=== PATIENT | male | born 1975 | race Caucasian/White ===

== ENCOUNTER 2023-06-20 10:17 | Outpatient (CLI) | payer BC, SELFPAY ==
[2023-06-20 14:36] LABS: Basophils Percent Auto 0.2 % (0.2-1.2); Eosinophils Absolute Auto 0.1 K/mm3 (0-0.3); Eosinophils Percent Auto 0.9 % (0-4.4); Hematocrit 46.9 % (42.0-52.0); Hemoglobin 14.7 g/dL (14.0-18.0); Immature Granulocyte Absolute 0.02 K/mm3 (0.00-0.031); Immature Granulocyte Percent A 0.3 % (0-0.5); Lymphocytes Absolute Auto 1.69 K/mm3 (0.9-3.2); Lymphocytes Percent Auto 29.4 % (18.3-44.2); Mean Corpuscular HGB Conc 31.3 g/dl (32-36); Mean Corpuscular Hemoglobin 27.8 pg (26-34); Mean Corpuscular Volume 88.7 fl (80-100); Mean Platelet Volume 10.3 fl (7.4-10.4); Monocytes Absolute Auto 0.4 K/mm3 (0.1-0.6); Monocytes Percent Auto 6.3 % (2.6-8.5); Neutrophils Absolute Auto 3.6 K/mm3 (1.3-6.7); Neutrophils Percent Auto 62.9 % (45.5-73.1); Platelet Count Result 196 k/mm3 (150-375); Red Blood Count 5.29 M/mm3 (4.6-6.20); Red Cell Distribution Width 12.6 % (11.5-14.5); White Blood Count 5.8 K/mm3 (4.5-10.0)
[2023-06-20 14:57] LABS: Alanine Aminotransferase 58 U/L (6-50); Albumin Level 4.4 g/dL (3.5-5.1); Alkaline Phosphatase 66 U/L (38-126); Aspartate Amino Transferase 69 U/L (17-59); Bilirubin,Total 0.8 mg/dL (0.2-1.3); Cholesterol 150 mg/dL (0-200); Triglycerides 60 mg/dL (<150)
[2023-06-20 15:11] LABS: Hemoglobin A1C 5.7 % (<5.7); Iron 74 ug/dL (49-181)
[2023-06-20 15:14] LABS: LDL Cholesterol Direct 86 mg/dL
[2023-06-20 15:22] LABS: Percent Iron Saturation 22 % (20-50)
[2023-06-20 15:31] LABS: Prostate Specific Antigen 0.5 ng/mL (< OR = 4.0)
[2023-06-20 15:38] LABS: HDL Direct 52 mg/dL
[2023-06-23 06:20] LABS: LH 2.5 mIU/mL (1.5-9.3); Prolactin 3.7 ng/mL (***)
[2023-06-23 13:20] LABS: Testosterone Total 386 ng/dL (250-1100)
== END 2023-06-20 10:18 | disposition home or self-care (01) ==
LOC: ANHGOSHLAB 10:19
PROVIDERS: PCP Internal Medicine; Visit Provider Internal Medicine
DX: E29.1 Testicular hypofunction (principal); I10 Essential (primary) hypertension; R73.9 Hyperglycemia, unspecified; Z12.5 Encounter for screening for malignant neoplasm of prostate; Z13.220 Encounter for screening for lipoid disorders
CPT/HCPCS: 36415; 80061; 80076; 83002; 83036; 83540; 83550; 84146; 84153; 84402; 84403; 84443; 85025; G0103

== ENCOUNTER 2023-09-15 08:13 | Outpatient (CLI) | payer BC, SELFPAY ==
[2023-09-15 13:54] LABS: Basophils Absolute Auto 0.1 K/mm3 (0.0-0.1); Basophils Percent Auto 0.6 % (0.2-1.2); Eosinophils Absolute Auto 0.1 K/mm3 (0-0.3); Eosinophils Percent Auto 1.1 % (0-4.4); Hematocrit 50.1 % (42.0-52.0); Hemoglobin 15.9 g/dL (14.0-18.0); Immature Granulocyte Absolute 0.04 K/mm3 (0.00-0.031); Immature Granulocyte Percent A 0.5 % (0-0.5); Lymphocytes Absolute Auto 2.11 K/mm3 (0.9-3.2); Lymphocytes Percent Auto 26.4 % (18.3-44.2); Mean Corpuscular HGB Conc 31.7 g/dl (32-36); Mean Corpuscular Hemoglobin 28.2 pg (26-34); Mean Platelet Volume 10.6 fl (7.4-10.4); Monocytes Absolute Auto 0.6 K/mm3 (0.1-0.6); Monocytes Percent Auto 7.1 % (2.6-8.5); Neutrophils Absolute Auto 5.1 K/mm3 (1.3-6.7); Neutrophils Percent Auto 64.3 % (45.5-73.1); Platelet Count Result 200 k/mm3 (150-375); Red Blood Count 5.63 M/mm3 (4.6-6.20); Red Cell Distribution Width 13.8 % (11.5-14.5)
[2023-09-15 14:34] LABS: Prostate Specific Antigen 0.9 ng/mL (< OR = 4.0)
[2023-09-19 16:27] LABS: Testosterone Free 322.8 pg/mL (35.0-155.0); Testosterone Total 1307 ng/dL (250-1100)
== END 2023-09-15 08:14 | disposition home or self-care (01) ==
LOC: ANHGOSHLAB 08:15
PROVIDERS: PCP Internal Medicine; Visit Provider Nurse Practitioner
DX: E29.1 Testicular hypofunction (principal); Z12.5 Encounter for screening for malignant neoplasm of prostate
CPT/HCPCS: 36415; 84153; 84402; 84403; 85025; G0103

== ENCOUNTER 2023-12-01 07:55 | Outpatient (CLI) | payer BC, SELFPAY ==
[2023-12-01 14:49] LABS: Alanine Aminotransferase 83 U/L (6-50); Albumin Level 4.4 g/dL (3.5-5.1); Alkaline Phosphatase 65 U/L (38-126); Anion Gap 10 mmol/L (4-12); Aspartate Amino Transferase 70 U/L (17-59); Bilirubin,Total 1.3 mg/dL (0.2-1.3); Blood Urea Nitrogen 21 mg/dL (9-20); Calcium 8.8 mg/dL (8.4-10.2); Carbon Dioxide 29 mmol/L (22-30); Chloride 101 mmol/L (98-107); Estimated Glomerular Filt Rate > 60; Glucose 90 mg/dL (65-110); Potassium 4.5 mmol/L (3.4-5.0); Sodium 140 mmol/L (137-145)
[2023-12-06 15:08] LABS: Testosterone Free 220.4 pg/mL (35.0-155.0); Testosterone Total 774 ng/dL (250-1100)
== END 2023-12-01 07:56 | disposition home or self-care (01) ==
LOC: ANHGOSHLAB 07:57
PROVIDERS: PCP Internal Medicine; Visit Provider Internal Medicine
DX: E29.1 Testicular hypofunction (principal); Z79.890 Hormone replacement therapy; R73.9 Hyperglycemia, unspecified
CPT/HCPCS: 36415; 80053; 83036; 84402; 84403

== ENCOUNTER 2023-12-28 07:09 | Outpatient (CLI) | payer BC, SELFPAY ==
--- NOTE | ~2023-12-28 | US_ITS ---
Limited Abdominal Sonogram: Real-time sonographic imaging of the right upper quadrant was performed. Clinical History: Abnormal serum enzyme levels Findings: The liver appears normal with no evidence of mass lesion or bile duct dilatation. Main por val vein demonstrates normal direction of flow. The gallbladder is well distended, and appears normal with no evidence of gallstone or wall thickening. The common bile duct measures 3 mm. The visualize d pancreas, aorta, and IVC are unremarkable. Impression: No significant abnormality seen. Reviewed, dictated and finalized at location M. Impression: No significant abnormality seen.
== END 2023-12-28 07:10 | disposition home or self-care (01) ==
PROVIDERS: PCP Internal Medicine; Visit Provider Internal Medicine
DX: R74.8 Abnormal levels of other serum enzymes (principal)
CPT/HCPCS: 76705

== ENCOUNTER 2024-02-15 07:25 | Outpatient (CLI) | payer BC, SELFPAY ==
[2024-02-15 08:11] LABS: Alanine Aminotransferase 45 U/L (6-50); Albumin Level 4.6 g/dL (3.5-5.1); Alkaline Phosphatase 52 U/L (38-126); Aspartate Amino Transferase 40 U/L (17-59); Bilirubin,Total 1.9 mg/dL (0.2-1.3)
== END 2024-02-15 07:26 | disposition home or self-care (01) ==
PROVIDERS: PCP Internal Medicine; Visit Provider Internal Medicine
DX: R74.8 Abnormal levels of other serum enzymes (principal)
CPT/HCPCS: 36415; 80076

== ENCOUNTER 2024-05-09 07:58 | Outpatient (CLI) | payer BC, SELFPAY ==
[2024-05-09 12:33] LABS: Basophils Absolute Auto 0.1 K/mm3 (0.0-0.1); Basophils Percent Auto 0.7 % (0.2-1.2); Eosinophils Absolute Auto 0.1 K/mm3 (0-0.3); Eosinophils Percent Auto 1.1 % (0-4.4); Hemoglobin 16.8 g/dL (14.0-18.0); Immature Granulocyte Absolute 0.03 K/mm3 (0.00-0.031); Immature Granulocyte Percent A 0.4 % (0-0.5); Lymphocytes Absolute Auto 1.78 K/mm3 (0.9-3.2); Lymphocytes Percent Auto 25.3 % (18.3-44.2); Mean Corpuscular HGB Conc 32.9 g/dl (32-36); Mean Corpuscular Hemoglobin 29.1 pg (26-34); Mean Corpuscular Volume 88.4 fl (80-100); Mean Platelet Volume 10.3 fl (7.4-10.4); Monocytes Absolute Auto 0.5 K/mm3 (0.1-0.6); Monocytes Percent Auto 6.8 % (2.6-8.5); Neutrophils Absolute Auto 4.6 K/mm3 (1.3-6.7); Neutrophils Percent Auto 65.7 % (45.5-73.1); Platelet Count Result 202 k/mm3 (150-375); Red Blood Count 5.77 M/mm3 (4.6-6.20); Red Cell Distribution Width 14.2 % (11.5-14.5)
[2024-05-09 13:18] LABS: Alanine Aminotransferase 39 U/L (6-50); Albumin Level 4.6 g/dL (3.5-5.1); Alkaline Phosphatase 64 U/L (38-126); Anion Gap 4 mmol/L (4-12); Aspartate Amino Transferase 86 U/L (17-59); Bilirubin,Total 2.2 mg/dL (0.2-1.3); Blood Urea Nitrogen 18 mg/dL (9-20); Calcium 8.7 mg/dL (8.4-10.2); Carbon Dioxide 31 mmol/L (22-30); Chloride 102 mmol/L (98-107); Cholesterol 210 mg/dL (0-200); Estimated Glomerular Filt Rate > 60; Glucose 87 mg/dL (65-110); HDL Direct 44 mg/dL; Potassium 4.5 mmol/L (3.4-5.0); Sodium 137 mmol/L (137-145); Triglycerides 85 mg/dL (<150)
[2024-05-09 13:29] LABS: LDL Cholesterol Direct 128 mg/dL
[2024-05-09 16:03] LABS: Hemoglobin A1C 5.7 % (<5.7)
[2024-05-15 19:42] LABS: Testosterone Free 409.6 pg/mL (35.0-155.0); Testosterone Total 1397 ng/dL (250-1100)
== END 2024-05-09 07:59 | disposition home or self-care (01) ==
LOC: ANHGOSHLAB 07:59
PROVIDERS: PCP Internal Medicine; Visit Provider Internal Medicine
DX: E29.1 Testicular hypofunction (principal); I10 Essential (primary) hypertension; R74.8 Abnormal levels of other serum enzymes; R73.9 Hyperglycemia, unspecified
CPT/HCPCS: 36415; 80053; 80061; 83036; 84402; 84403; 85025

== ENCOUNTER 2024-05-13 08:07 | Outpatient (CLI) | payer BC, SELFPAY ==
[2024-05-13 12:29] LABS: INR 0.9; Prothrombin Time 12.8 Seconds (11.1-14.7)
[2024-05-13 12:56] LABS: Bilirubin Indirect 1.7 mg/dL (0-1.1)
[2024-05-13 13:24] LABS: Hepatitis B Surface Antigen Negative (Negative)
[2024-05-13 13:41] LABS: Hepatitis C Virus Antibody Negative (Negative)
[2024-05-14 18:24] LABS: GGT 22 U/L (3-95)
--- OUTSIDE RECORDS SUMMARY | 2024-05-20 12:10 | XMS_ITS | Encounter Summary ---
Author Organization [facility] Address [facility]. [place], [place] [address] [place] [address] Care Team Providers Care Development Spec Name Role Phone Joel Tanner MD Primary Care Provider + Senthil Fisher MD Unavailable Encounter Details Date Type Department Care Team (Late st Contact Info) Description 08/04/2022 Adar IT Message [address] [address] [facility] Provider Overdue for High Blood Pressure follow up Social History Tobacco Use Types Packs/Day Years Used Date Smoking Tobacco: Former Cigarettes Q uit: 1998 Smokeless Tobacco: Never Alcohol Use Standard Drinks/Week Comments Yes 0 (1 standard drink = 0.6 oz pur e alcohol) seldom AUDIT-C Answer Date Recorded Frequency of Alcohol Consumption 2-4 times a mon06/11/2019 Average Number of Drinks Not on file 020 Frequency of Binge Drinking Not on file 05/23 PHQ-2 Answer Date Recorded Patient Health Questionnaire-2 Score 0 08/05/2022 Sex and Gender Information Value Date Recorded Sex Assigned at Not on file Legal Sex Male 8:30 PM CDT Gender Identity Not on file Sexual Orientation Not on file Occupation Industry Job Start Date Job End Date Not on file Not on file Not on file Not on file COVID-19 Exposure Response Date Recorded In the last 10 days, have yo u been in contact with someone who was confirmed or suspected to have Coronavirus/COVID-19? No / Unsure 08/05/2022 9:30 AM CDT documented as of this encounter Plan of Treatment Not on file documented as of this encounter Visit Diagnoses Not on filedocumented in this encounter Additional Health Concerns Assessment Noted Time PHQ-9 Depression Total Score: 0 06/28/19 22 3:59 PM DIE TRIPPER documented as of this encounter Care Teams Development Spec Relationship Specialty Start Date End Date Joel Tanner MD [address] [facility] [address] [place] [address] PCP - General FAMILY PRACTICE 05/24/19 02/27/24 Senthil Fisher MD Three [facility]. [address] [place] [address] Deanne Information Technology Consultant CARDIOVASCULAR DISEASE 05/29/19 documented as of this encounter
--- OUTSIDE RECORDS SUMMARY | 2024-05-20 12:10 | XMS_ITS | Encounter Summary ---
Author Organization [facility] Address [facility]6 [facility]. [place], [place] [address] [place] [address] Care Team Providers Care Gradall Operator Name Role Phone Joel Tanner MD Primary Care Provider + Senthil Fisher MD Unavailable [phone] Encounter Details Date Type Department Care Team (Latest Contact Info) Description 05/17/2023 7:25 AM DETAIL MANAGER - 05/17/2023 11:59 PM [facility] Hospital Encounter [facility] [address] [place] [address] Joel Tanner MD [address] [facility] [address] [place] [address] Discharge Disposition: Home or Self Care (Routine Discharge) Social History Tobacco Use Types Packs/Day Years Used Date Smoking Tobacco: Former Cigarettes Q uit: 05/22/1998 Smokeless Tobacco: Never Alcohol Use Standard Drinks/Week Comments Yes 0 (1 standard drink = 0.6 oz pur e alcohol) seldom AUDIT-C Answer Date Recorded Frequency of Alcohol Consumption 2-4 times a mon 06/11/2019 Average Number of Drinks Not on file [...] file Not on file Not on file documented as of this encounter Medications at Time of Discharge alfuzosin ER (UROXATRAL) 10 MG 24 hr tabletIndications: Benign prostatic hyperplasia with urinary obstruction Take 1 tablet (10 mg total) by mouth daily. 90 tablet 3 12/29/2021 lisinopril (PRINIVIL) 20 MG tabletIndications: Hypertension, unspecified type TAKE 1 TABLET(20 MG) BY MOUTH DAILY 90 tablet 03/27/2023 06/26/2023 documented as of this encounter Plan of Treatment Not on file documented as of this encounter Procedures Procedure Name Priority Date/Time Associated Diagnosis Comments COMPREHENSIVE METABOLIC PANEL Routine 05/17/2023 7:31 AM DETAIL MANAGER Mixed hyperlipidemia LIPID PANEL Routine 05/17/2023 7:31 AM DETAIL MANAGER Mixed hyperlipidemia TESTOSTERONE, TOTAL Routine 05/17/2023 7 :31 AM DETAIL MANAGER Low testosterone documented in this encounter Results * TESTOSTERONE, TOTAL (05/17/2023 7:31 AM DETAIL MANAGER) TESTOSTERONE TOTAL 255 250 - 1,100 ng/dL 05/20/2023 11:34 AM DETAIL MANAGER [facility] Comment: For additional information, please refer to http://education.[employer].[email or web address]/faq/ [email or web address] (This link is being provided for informational/ educational purposes only.) This test was developed and its analytical performance characteristics have been determined by [employer] [place], [place]. It has not been cleared or approved by the U.S. Food and Drug Administration. This assay has been validated pursuant to the CLIA regulations and is used for clinical purposes. Test Performed by [facility], [facility], [address] [place] [address] Darnell Bello M.D., Ph.D., Director of Laboratories , [facility] [id number] 05/17/2023 7:31 AM DETAIL MANAGER Joel Tanner MD LABORATORY Final Re sult [facility] [address] [place] [address], [place] [phone] * (ABNORMAL) LIPID PANEL (05/17/2023 7:31 AM DETAIL MANAGER) CHOLESTEROL 251(H) <200 MG/DL 05/17/2023 9:28 [facility] TRIGLYCERIDES 135 <150 MG/DL 05/17/2023 9:28 [facility] HDL 49 >40.0 MG/DL 05/17/2023 9:28 [facility] LDL (CALCULATED) 175(H) <100 MG/DL 05/17/2023 9:28 [facility] NON HDL CHOLESTEROL 202(H) <130 MG/DL 05/17/2023 9:28 [facility] Comment: NOTE: WHEN THE TRIGLYCERIDES ARE >200 mg/dL, NON HDL C IS A SECONDARY TARGET OF THERAPY, WITH A GOAL 30 mg/dL HIGHER THAN THE IDENTIFIED LDL C GOAL. CHOL/HDL RATIO 5.1(H) 0.0 - 4.5 05/17/2023 9:28 [facility] VLDL CALCULATION 27 5 - 55 MG/DL 05/17/2023 9:28 [facility] LIPID INTERPRETATION 05/17/2023 9:28 [facility] Comment: NIH CONCENSUS REPORT RECOMMENDATIONS: ?ADULT ?CHILD ??LOW RISK: ?CHOLESTEROL ? <200 ? <170 ?TRIGLYCERIDE ?<150 ?--- ?HDL ? >=60 ?--- ?LDL ? <100 ? <110 ??BORDERLINE: ?CHOLESTEROL ? 200-239 ?? 170-199 ?TRIGLYCERIDE ?150-199 ? --- ?HDL ?40-59 ?--- ?LDL ? 100-159 ?? 110-129 ??HIGH RISK: ?CHOLESTEROL ? >=240 ?>=200 ?TRIGLYCERIDE ?>=200 ? --- ?HDL ?<40 ?--- ?LDL ? >=160 ?>=130 05/17/2023 7:31 AM DETAIL MANAGER us Joel Tanner MD LABORATORY Final Re sult [facility] () [facility] [address] [place] [address], * (ABNORMAL) COMPREHENSIVE METABOLIC PANEL (05/17/2023 7:31 AM DETAIL MANAGER) GLUCOSE 115(H) 70 - 99 MG/DL 05/17/2023 9:28 [facility] BUN 19(H) 7 - 18 MG/DL 05/17/2023 9:28 [facility] CREATININE S/P/B 0.95 0.7 - 1.3 MG/DL 05/17/2023 9:28 [facility] SODIUM S/P/B 137 136 - 145 MMOL/L 05/17/2023 9:28 [facility] POTASSIUM S/P/B 4.0 3.5 - 5.1 MMOL/L 05/17/2023 9:28 [facility] CHLORIDE S/P/B 102 100 - 108 MMOL/L 05/17/2023 9:28 [facility] CO2 26.2 21 - 32 MMOL/L 05/17/2023 9:28 [facility] CALCIUM S/P/B 8.1(L) 8.5 - 10.1 MG/DL 05/17/2023 9:28 [facility] BILIRUBIN TOTAL S/P/B 1.0 0.2 - 1.2 MG/DL 05/17/2023 9:28 [facility] Comment: THIS ASSAY IS NOT RECOMMENDED FOR PATIENTS UNDERGOING TREATMENT WITH ELTROMBOPAG DUE TO THE POTENTIAL FOR FALSELY ELEVATED RESULTS. TOTAL PROTEIN S/P/B 7.1 6.4 - 8.2 G/DL 05/17/2023 9:28 [facility] ALBUMIN S/P/B 3.8 3.4 - 5.0 G/DL 05/17/2023 9:28 [facility] AST 26 15 - 37 U/L 05/17/2023 9:28 [facility] ALT 47 16 - 60 U/L 05/17/2023 9:28 AM DETAIL MANAGER [facility] ALKALINE PHOSPHATASE S/P/B 64 50 - 136 U/L 05/17/2023 9:28 AM DETAIL MANAGER [facility] ANION GAP 8.8 5 - 15 MMOL/L 05/17/2023 9:28 [facility] BUN CREATININE RATIO 20.0 6 - 26 05/17/2023 9:28 [facility] A/G RATIO 1.2 1.0 - 2.0 RATIO 05/17/2023 9:28 [facility] GFR ESTIMATE >90 >90 ML/MIN/1.7 3 M2 05/17/2023 9:28 AM [facility] Comment: NOTE: eGFR is not calculated for patients <18 years of age. This is an estimated GFR calculation using the new CKD EPI creatinine equation without race and so does not require a correction factor for race. This estimated GFR should not be used for calculating drug doses. 05/17/2023 7:31 AM DETAIL MANAGER Joel Tanner MD LABORATORY Final Re sult [facility] [address] [place] [address], documented in this encounter Visit Diagnoses Diagnosis Mixed hyperlipidemia Low testosterone Other testicular hypofunction documented in this encounter Additional Health Concerns Assessment Noted Time PHQ-9 Depression Total Score: 0 06/28/19 22 3:59 PM DETAIL MANAGER documented as of this encounter Care Teams Gradall Operator Relationship Specialty Start Date End Date Joel Tanner MD [address] [facility] [address] [place] [address] PCP - General FAMILY PRACTICE 05/24/19 02/27/24 Senthil Fisher MD Three [facility]. [address] [place] [address] Deanne Roundhouse Worker CARDIOVASCULAR DISEASE 05/29/19 documented as of this encounter
--- OUTSIDE RECORDS SUMMARY | 2024-05-20 12:10 | XMS_ITS | Encounter Summary ---
Author Organization [facility] Address [facility]6 [facility]. [place], [place] [address] [place] [address] Care Team Providers Care Stack Yield Engineer Name Role Phone Joel Tanner MD Primary Care Provider + Senthil Fisher MD Unavailable [phone] Encounter Details Date Type Department Care Team (Latest Contact Info) Description 02/14/2022 Travel Social History Tobacco Use Types Packs/Day Years [...] on file 05/23 PHQ-2 Answer Date Recorded PHQ-2 Score - If the patient scores above 3, please move on to questions 3-9 0 02/04/2022 Sex and Gender Information Value Date Recorded [...] suspected to have Coronavirus/COVID-19? No / Unsure 02/14/2022 11:13 AM CDT documented as of this encounter Plan of Treatment Not on file documented as of this encounter Visit Diagnoses Not on filedocumented in this encounter Additional Health Concerns Assessment Noted Time PHQ-9 Depression Total Score: 0 06/28/19 22 3:59 PM SCOUT SNIPER documented as of this encounter Care Teams Stack Yield Engineer Relationship Specialty Start Date End Date Joel Tnaner MD [address] [facility] [address] [place] [address] PCP - General FAMILY PRACTICE 05/24/19 02/27/24 Senthil Fisher MD Three [facility]. [facility] [address] [place] [address] Deanne Mailing Specialist CARDIOVASCULAR DISEASE 05/29/19 documented as of this encounter
--- OUTSIDE RECORDS SUMMARY | 2024-05-20 12:10 | XMS_ITS | Encounter Summary ---
Author Organization [facility] Address [facility]6 [facility]. [place], [place] [address] [place] [address] Care Team Providers Care Director Retail Brand Development Name Role Phone Joel Tanner MD Primary Care Provider + Senthil Fisher MD Unavailable [phone] Encounter Details Date Type Department Care Team (Latest Contact Info) Description 12/02/2022 Travel Social History Tobacco Use Types Packs/Day [...] on file documented as of this encounter Plan of Treatment Not on file documented as of this encounter Visit Diagnoses Not on filedocumented in this encounter Additional Health Concerns Assessment Noted Time PHQ-9 Depression Total Score: 0 06/28/19 22 3:59 PM SUPERINTENDENT SERVICE documented as of this encounter Care Teams Director Retail Brand Development Relationship Specialty Start Date End Date Joel Tanner MD [address] [facility] [address] [place] [address] PCP - General FAMILY PRACTICE 05/24/19 02/27/24 Senthil Fisher MD Three [facility]. [facility] [address] [place] [address] Deanne Oil Sprayer CARDIOVASCULAR DISEASE 05/29/19 documented as of this encounter
--- OUTSIDE RECORDS SUMMARY | 2024-05-20 12:10 | XMS_ITS | Encounter Summary ---
Author Organization [facility] Address [facility]6 [facility]. [place], [place] [address] [place] [address] Care Team Providers Care Safe And Vault Installer Name Role Phone Joel Tanner MD Primary Care Provider + Senthil Fisher MD Unavailable [phone] Encounter Details Date Type Department Care Team (Latest Contact Info) Description 02/16/2022 Getting-in Message [facility] [address] [place] [address] Joel Tanner MD [address] [place] [address] Question regarding COMPREHENSIVE METABOLIC PANEL Social History Tobacco Use Types Packs/Day Years [...] Recorded In the last 10 days, have janes u been in contact with someone who was confirmed or suspected to have Coronavirus/COVID-19? No / Unsure 02/14/2022 11:13 AM CDT documented as of this encounter Plan of Treatment Not on file documented as of this encounter Visit Diagnoses Not on filedocumented in this encounter Additional Health Concerns Assessment Noted Time PHQ-9 Depression Total Score: 0 06/28/19 22 3:59 PM CAFETERIA MANAGER documented as of this encounter Care Teams Safe And Vault Installer Relationship Specialty Start Date End Date Joel Tanner MD [address] [facility] [address] [place] [address] PCP - General FAMILY PRACTICE 05/24/19 02/27/24 Senthil Fisher MD [facility]. [facility] [address] [place] [address] Deanne Rug Layer CARDIOVASCULAR DISEASE 05/29/19 documented as of this encounter
--- OUTSIDE RECORDS SUMMARY | 2024-05-20 12:10 | XMS_ITS | Encounter Summary ---
Author Organization [facility] Address [facility]. [place], [place] [address] [place] [address] Care Team Providers Care Senior Quality Control Inspector Name Role Phone Joel Stinson MD Primary Care Provider + Senthil Fisher MD Unavailable [phone] Encounter Details Date Type Department Care Team (Late st Contact Info) Description 12/16/2022 4:10 PM CDT Teleconsult [facility] General Surgery [address], [address] [place] [address] Kyra Velasco MD [address] [address] Social History Tobacco Use Types Packs/Day Years Used Date Smoking Tobacco: Former Cigarettes Q uit: 05/22/1998 Smokeless Tobacco: Never Alcohol Use Standard Drinks/Week Comments Yes 0 (1 standard drink = 0.6 oz pur e alcohol) seldom AUDIT-C Answer Date Recorded Frequency of Alcohol Consumption 2-4 times a mon th 06/11/2019 Average Number of Drinks Not on [...] on file documented as of this encounter Progress Notes * Kyra Velasco MD - 12/16/2022 4:10 PM CDT Reason for Visit: No chief complaint on file. History of Present Illness: Guzman Villagran is a 47-year-old male status post colonoscopy on December 02, 2022 for initial coloncancer screening. Colonoscopy revealed small hyperplastic appearing polyps. Pathology of all polypswere hyperplastic polyps. There were about 6 polyps removed. He is doing well and denies any pertinent issues or concerns. I had a brief patient communication by Telephone for follow-up after colonoscopy. I responded to the patient by Telephone with the following recommendations: As discussed below. Prior to communication, I educated patient on insurance cost-sharing and obtained verbal consent. Total Time Spent in Kamini tereza: 11 minutes and all those minutes was spent on coordination of care, reviewing pathology and colonoscopy findings, answering questions. ROS: Review of Systems Gastrointestinal: Negative. Medications: Current Outpatient Medications: alfuzosin ER (UROXATRAL) 10 MG 24 hr tablet, Take 1 tablet (10 mg total) by mouth daily., Disp: 90 tablet, Rfl: 3 lisinopril (PRINIVIL) 20 MG tablet, TAKE 1 TABLET(20 MG) BY MOUTH DAILY, Disp: 90 tablet, Rfl: 1 Allergies No Known Allergies Past Medical History: Diagnosis Date Asthma Chest pain Hypertension, essential, benign Kidney stones x 2 Sleep apnea Past Surgical History: Procedure Laterality Date COLONOSCOPY N/A 12/02/2022 COLONOSCOPY with polypectomies performed by Kyra Velasco MD at [facility] OR EYE SURGERY 2021 Lasic LASIK Left SHOULDER SURGERY Bilateral torn labrum SINUS SURGERY Social History Tobacco Use Smoking status: Former Types: Cigarettes Quit date: 05/22/1998 Years since quittin.5 Smokeless tobacco: Never Vaping Use Vaping Use: Never used Substance Use Topics Alcohol use: Yes Comment: seldom Drug use: Not Currently Types: Marijuana Family History Problem Relation Name Age of Onset Lung Cancer Mother Joy Cancer Mother Joy Heart Attack Father Arthritis Maternal Grandmother Llna Physical Exam Constitutional: Comments: This was a telephone telehealth encounter therefore physical examination was not performed There were no vitals filed for this visit. There is no height or weight on file to calculate BMI. Diagnoses/Impression: 1. Postoperative examination Recommendations and Plan: Guzman Villagran is a 47-year-old male status post colonoscopy with removal of multiple hyperplastic appearing polyps. Prep was good. I have recommended repeat colonoscopy in 7 years. He verbalizedunderstanding. I spent 11 minutes today reviewing the patient's medical record, obtaining history, documenting in the medical record, counseling and educating the patient, reviewing and communicating test results, and coordinating care. Note: This note was created with the aid of dictation software, thus there may be some word substitutions or errors. Again, thank you for allowing me to provide consultative services and to participate in the care ofGuzman Villagran. Kyra Velasco MD Referring Provider: No ref. provider found PCP: JOEL STINSON MD documented in this encounter Plan of Treatment Not on file documented as of this encounter Visit Diagnoses Diagnosis Postoperative examination- Primary Follow-up examination, following unspecified surgery documented in this encounter Additional Health Concerns Assessment Noted Time PHQ-9 Depression Total Score: 0 06/28/19 22 3:59 PM DIESEL MECHANIC CONSTRUCTION documented as of this encounter Care Teams Senior Quality Control Inspector Relationship Specialty Start Date End Date Joel Stinson MD [address] [facility] 112 [place] [address] PCP - General FAMILY PRACTICE 05/24/19 02/27/24 Senthil Fisher MD [facility] [address] [place] [address] Deanne Off Track Betting Manager CARDIOVASCULAR DISEASE 05/29/19 documented as of this encounter
--- OUTSIDE RECORDS SUMMARY | 2024-05-20 12:10 | XMS_ITS | Encounter Summary ---
Author Organization [facility] Address [facility]. [place], [place] [address] [place] [address] Care Team Providers Care Gum Rolling Machine Operator Name Role Phone Joel Stinson MD Primary Care Provider + Senthil Fisher MD Unavailable [phone] Reason for Visit * Reason Comments Consult New patient colon co nsult * Consultation (Routine) - Closed Specialty Diagnoses / Procedures Referred By Contac t Referred To Contact SURGERY Diagnoses colon consult Procedures NEW PATIENT Kyra Velasco MD [address] [place] [address] Phone: tel: fax: Kyra Velasco MD [address] [place] [address] Phone: tel: fax: Referral ID Status Reason Start Date Expiration Date Visits Re quested Visits Authorized [id number] Closed 09/14/2022 1 1 Encounter Details Date Type Department Care Team (Late st Contact Info) Description 09/14/2022 3:40 PM CDT Office Visit [facility] General Surgery [address], [address] [place] [address] Kyra Velasco MD [address] [place] [address] Consult (New patient colon consult) Social History Tobacco Use Types Packs/Day Years Used Date Smoking Tobacco: Former Cigarettes Q uit: 05/22/1998 Smokeless Tobacco: Never Tobacco Cessation:Counseling Given: Not Answered Alcohol Use Standard Drinks/Week Comments Yes 0 [...] suspected to have Coronavirus/COVID-19? No / Unsure 09/14/2022 3:34 PM CDT documented as of this encounter Last Filed Vital Signs Vital Sign Reading Time Taken Comments Blood Pressure 134/84 09/14/2022 3:38 PM CDT Pulse 83 09/14/2022 3:38 PM CDT Temperature 36.6 ??C (97.8 ??F) 09/14/2022 3:38 PM CD T Respiratory Rate 16 09/14/2022 3:38 PM CDT Oxygen Saturation 99% 09/14/2022 3:38 PM CDT Inhaled Oxygen Concentration - - Weight 96.2 kg (212 lb) 09/14/2022 3:38 PM CDT Height 180.3 cm (5' 11 ) 09/14/2022 3:38 PM CDT Body Mass Index 29.57 09/14/2022 3:38 PM CDT documented in this encounter Progress Notes * Kyra Velasco MD - 09/14/2022 3:40 PM CDT Reason for Visit: Consult (New patient colon consult) History of Present Illness: Guzman Villagran is a 47-year-old male who was referred for a screening colonoscopy. He has neverhad a colonoscopy before. He denies any family history of colon cancer, inflammatory bowel disease or adenomatous colon polyps; denies any personal history of unintentional weight loss, rectal bleeding, dark stools, hematemesis, narrowed stools or change in stool caliber or character, rectal pain, nausea, vomiting, bloatingor abdominal pain. He denies any abdominal surgeries. He denies any previous issues with anesthesia. I have reviewed the past medical, surgical, social and family histories. ROS: Review of Systems Constitutional: Negative. HENT: Negative. Eyes: Negative. Respiratory: Negative. Cardiovascular: Negative. Gastrointestinal: Negative. Genitourinary: Negative. Musculoskeletal: Negative. Skin: Negative. Neurological: Negative. Endo/Heme/Allergies: Negative. Psychiatric/Behavioral: Negative. Medications: Current Outpatient Medications: alfuzosin ER [...] apnea Past Surgical History: Procedure Laterality Date EYE SURGERY 2021 Lasic LASIK Left SHOULDER SURGERY Bilateral torn labrum SINUS SURGERY Social History Tobacco Use Smoking status: Former Types: Cigarettes Quit date: 05/22/1998 Years since quittin.3 Smokeless tobacco: Never Vaping Use Vaping Use: Never used Substance Use Topics Alcohol use: Yes Comment: seldom Drug use: Not Currently Types: Marijuana Family History Problem Relation Name Age of Onset Lung Cancer Mother Joy Cancer Mother Joy Heart Attack Father Arthritis Maternal Grandmother Llna Physical Exam Vitals and nursing note reviewed. Constitutional: General: He is not in acute distress. Appearance: Normal appearance. He is well-developed. He is not ill-appearing, toxic-appearing or diaphoretic. HENT: Head: Normocephalic and atraumatic. Right Ear: External ear normal. Left Ear: External ear normal. Nose: Nose normal. Eyes: General: No scleral icterus. Right eye: No discharge. Left eye: No discharge. Conjunctiva/sclera: Conjunctivae normal. Cardiovascular: Rate and Rhythm: Normal rate and regular rhythm. Heart sounds: Normal heart sounds. No murmur heard. No friction rub. No gallop. Pulmonary: Effort: Pulmonary effort is normal. No respiratory distress. Breath sounds: Normal breath sounds. No stridor. No wheezing, rhonchi or rales. Chest: Chest wall: No tenderness. Abdominal: General: Bowel sounds are normal. There is no distension. Palpations: Abdomen is soft. There is no mass. Tenderness: There is no abdominal tenderness. There is no guarding or rebound. Musculoskeletal: General: Normal range of motion. Cervical back: Normal range of motion and neck supple. Skin: General: Skin is warm and dry. Neurological: General: No focal deficit present. Mental Status: He is alert and oriented to person, place, and time. Psychiatric: Mood and Affect: Mood normal. Behavior: Behavior normal. Vitals: 09/14/22 1538 Patient Position: Sitting BP Location: Left arm Cuff size: Adult Large BP: 134/84 Pulse: 83 Body mass index is 29.57 kg/m??. Diagnoses/Impression: 1. Encounter for screening for malignant neoplasm of colon Recommendations and Plan: Guzman Villagran 47-year-old male due for a screening colonoscopy. Colonoscopy is indicated. Risks, benefits and alternatives of a colonoscopy have been discussed with patient including but not limited to abdominal discomfort, bleeding, infection, perforation, aspiration, missed lesions, drug reaction, pulmonary or cardiac issues, risk of delayed diagnosis of postprocedural complications, possible need for further procedure or surgery. Ample time was given for questions and all questions havebeen answered. Patient has been scheduled for a colonoscopy. Prep instructions provided. Consent will be signed on the day of procedure. Ample time was given for questions and all questions were addressed. Thank you very much for this referral and for allowing me to participate in the care of your patient. Note: This note was created with the aid of dictation software, thus there may be some word substitutions or errors. Again, thank you for allowing me to provide consultative services and to participate in the care ofGuzman Villagran. 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 [facility] [address] [place] [address] Waldron Blurb Writer CARDIOVASCULAR DISEASE 05/29/19 documented as of this encounter
--- OUTSIDE RECORDS SUMMARY | 2024-05-20 12:10 | XMS_ITS | Encounter Summary ---
Author Organization [facility] Address [facility] [place] [address] [place] [address] Care Team Providers Care Blocking Machine Tender Name Role Phone Joel Tanner MD Primary Care Provider + Senthil Fisher MD Unavailable [phone] Encounter Details Date Type Department Care Team (Latest Contact Info) Description 02/14/2022 11:13 AM CDT - 02/14/2022 11:59 PM T Hospital Encounter [facility] [address] [place], [place] [id number] Joel Tanner MD [address] [place] [address] Discharge Disposition: Home or Self [...] AM CDT documented as of this encounter Medications at Time of Discharge alfuzosin ER (UROXATRAL) 10 MG 24 hr tabletIndications: Benign prostatic hyperplasia with urinary obstruction Take 1 tablet (10 mg total) by mouth daily. 90 tablet 3 12/29/2021 lisinopril (PRINIVIL) 20 MG tabletIndications: Hypertension, unspecified type TAKE 1 TABLET(20 MG) BY MOUTH DAILY 30 tablet 02/01/2022 03/08/2022 documented as of this encounter Plan of Treatment Not on file documented as of this encounter Procedures Procedure Name Priority Date/Time Associated Diagnosis Comments HC TESTOSTERONE TOTAL-90 Routine 02/14/2022 11:19 AM CDT Low testosterone COMPREHENSIVE METABOLIC PANEL Routine 02/14/2022 11:19 AM CDT Hypertension, essential, benign LIPID PANEL Routine 02/14/2022 11:19 AM CDT Hypertension, essential, benign documented in this encounter Results * TESTOSTERONE, FREE & TOTAL (02/14/2022 11:19 AM CDT) TESTOSTERONE TOTAL 321 250 - 1,100 ng/dL 02/19/2022 9:51 PM CDT [facility] [place] Comment: For additional information, please refer to http://education.FlowCo.TaCerto.com/faq/ [email or web address] (This link is being provided for informational/ educational purposes only.) This test was developed and its analytical performance characteristics have been determined by [employer] [place], [place]. It has not been cleared or approved by the U.S. Food and Drug Administration. This assay has been validated pursuant to the CLIA regulations and is used for clinical purposes. TESTOSTERONE FREE 58.4 35.0 - 155.0 pg/mL 02/19/2022 9:51 PM CDT [facility] [place] Comment: This test was developed and its analytical performance characteristics have been determined by [employer] [place], [place]. It has not been cleared or approved by the U.S. Food and Drug Administration. This assay has been validated pursuant to the CLIA regulations and is used for clinical purposes. Test Performed by [employer] [facility], [employer] [facility], [address] [place], [place] Darnell Bello M.D., Ph.D., Director of Laboratories , CLIA [id number] 02/14/2022 11:1 9 AM CDT Joel Tanner MD LABORATORY Final Re sult [facility] [address] [place], [place] , * (ABNORMAL) LIPID PANEL (02/14/2022 11:19 AM CDT) CHOLESTEROL 195 <200 MG/DL 02/14/2022 12:02 PM CDT [facility] TRIGLYCERIDES 115 <150 MG/DL 02/14/2022 12:02 PM CDT [facility] HDL 49 >40.0 MG/DL 02/14/2022 12:02 PM CDT [facility] LDL (CALCULATED) 123(H) <100 MG/DL 02/14/2022 12:02 PM CDT [facility] NON HDL CHOLESTEROL 146(H) <130 MG/DL 02/14/2022 12:02 PM CDT [facility] Comment: NOTE: WHEN THE TRIGLYCERIDES ARE >200 mg/dL, NON HDL C IS A SECONDARY TARGET OF THERAPY, WITH A GOAL 30 mg/dL HIGHER THAN THE IDENTIFIED LDL C GOAL. CHOL/HDL RATIO 4.0 0.0 - 4.5 02/14/2022 12:02 PM CDT [facility] VLDL CALCULATION 23 5 - 55 MG/DL 02/14/2022 12:02 PM CDT [facility] LIPID INTERPRETATION 02/14/2022 12:02 PM CDT [facility] Comment: NIH CONCENSUS REPORT RECOMMENDATIONS: ?ADULT ?CHILD ??LOW RISK: ?CHOLESTEROL ? <200 ? <170 ?TRIGLYCERIDE ?<150 ?--- ?HDL ? >=60 ?--- ?LDL ? <100 ? <110 ??BORDERLINE: ?CHOLESTEROL ? 200-239 ?? 170-199 ?TRIGLYCERIDE ?150-199 ? --- ?HDL ?40-59 ?--- ?LDL ? 100-159 ?? 110-129 ??HIGH RISK: ?CHOLESTEROL ? >=240 ?>=200 ?TRIGLYCERIDE ?>=200 ? --- ?HDL ?<40 ?--- ?LDL ? >=160 ?>=130 02/14/2022 11:1 9 AM CDT Joel Tanner MD LABORATORY Final Re sult [facility] [address] [place] [address], * (ABNORMAL) COMPREHENSIVE METABOLIC PANEL (02/14/2022 11:19 AM CDT) GLUCOSE 111(H) 70 - 99 MG/DL 02/14/2022 12:02 PM CDT [facility] BUN 16 7 - 18 MG/DL 02/14/2022 12:02 PM CDT [facility] CREATININE S/P/B 0.80 0.7 - 1.3 MG/DL 02/14/2022 12:02 PM CDT [facility] SODIUM S/P/B 139 136 - 145 MMOL/L 02/14/2022 12:02 PM T [facility] POTASSIUM S/P/B 4.0 3.5 - 5.1 MMOL/L 02/14/2022 12:02 PM T [facility] CHLORIDE S/P/B 104 100 - 108 MMOL/L 02/14/2022 12:02 PM CDT [facility] CO2 28.6 21 - 32 MMOL/L 02/14/2022 12:02 PM CDT [facility] CALCIUM S/P/B 8.5 8.5 - 10.1 MG/DL 02/14/2022 12:02 PM CDT [facility] BILIRUBIN TOTAL S/P/B 0.9 0.2 - 1.2 MG/DL 02/14/2022 12:02 PM [facility] Comment: THIS ASSAY IS NOT RECOMMENDED FOR PATIENTS UNDERGOING TREATMENT WITH ELTROMBOPAG DUE TO THE POTENTIAL FOR FALSELY ELEVATED RESULTS. TOTAL PROTEIN S/P/B 7.1 6.4 - 8.2 G/DL 02/14/2022 12:02 PM [facility] ALBUMIN S/P/B 3.9 3.4 - 5.0 G/DL 02/14/2022 12:02 PM [facility] AST 25 15 - 37 U/L 02/14/2022 12:02 PM [facility] ALT 42 16 - 60 U/L 02/14/2022 12:02 PM [facility] ALKALINE PHOSPHATASE S/P/B 67 50 - 136 U/L 02/14/2022 12:02 PM [facility] ANION GAP 6.4 5 - 15 MMOL/L 02/14/2022 12:02 PM [facility] BUN CREATININE RATIO 20.0 6 - 26 02/14/2022 12:02 PM [facility] A/G RATIO 1.2 1.0 - 2.0 RATIO 02/14/2022 12:02 PM [facility] GFR ESTIMATE >90 >90 ML/MIN/1.7 3 M2 02/14/2022 12:02 PM [facility] Comment: NOTE: eGFR is not calculated for patients <18 years of age. This is an estimated GFR calculation using the new CKD EPI creatinine equation without race and so does not require a correction factor for race. This estimated GFR should not be used for calculating drug doses. 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 [address] [place] [address] Deanne Pattern Assembler CARDIOVASCULAR DISEASE 05/29/19 documented as of this encounter
--- OUTSIDE RECORDS SUMMARY | 2024-05-20 12:10 | XMS_ITS | Encounter Summary ---
Author Organization [facility] Address Critical access hospital6 [facility]. [place], [place] [address] [place] [address] Care Team Providers Care Radio Time Salesperson Name Role Phone Joel Tanner MD Primary Care Provider + Senthil Fisher MD Unavailable Reason for Visit * Auth/Cert (Routine) Specialty Diagnoses / Procedures Referred By Contac t Referred To Contact Diagnoses Screening for malignant neoplasm of colon Screening colonoscopy Procedures COLONOSCOPY,DIAGNOSTIC COLONOSCOPY Kyra Hernández MD [address] [address] Phone: tel: fax: Referral ID Status Reason Start Date Expiration Date Visits Re quested Visits Authorized [id number] 1 1 Encounter Details Date Type Department Care Team (Late st Contact Info) Description 12/02/2022 9:33 AM CDT Anesthesia Event [facility] [address] [place] [address] Janine Nye CRNA [address] [place] [address], [address] [place] [address] Lizzie Prado CRNA [address] [place], [place] [id number] Anesthesia Record Procedure Summary Procedure Name Responsible Anesthesiologist Anesthesia Start Time Anesthesia Stop Time COLONOSCOPY with polypectomies Janine Swanson Lindajoaquín, JOSE R 12/02/22 0933 12/02/22 1017 Events Date Time Event Comment 12/02/2022 0851 0851 AN ASSOCIATE ARTISTIC DIRECTOR Prepped 0933 An Start Data 0933 An Start Patient ID and consent checked and patient reassessed. 0933 AN Immediate Reassess The pa tient was reevaluated immediately before sedation or regional anesthesia. 0933 Nasal Cannula Applied 0933 Anesthesia Ready 0944 An Induction The patient was reevaluated immediately before moderate or deep sedation use and before anesthesia induction. 1015 Nasal Cannula Removed 1016 an stop data 1017 Post Anesthetic Care Handoff I completed my handoff to the receiving nurse during which we: 1. Identified the patient 2. Identified the responsible provider 3. Reviewed the pertinent medical history 4. Discussed the surgical course 5. Reviewed intra-op anesthesia management and issues during anesthesia 6. Set expectations for post-procedure period 7. Allowed opportunity for questions and acknowledgement of understanding. 1017 An Stop Meds Name Total lidocaine (PF) (XYLOCAINE) 1% injection 50 mg propofol (DIPRIVAN) 200 mg/20 mL injecti on 662.05 mg lactated ringers infusion 800 mL * Agents Name O2 * Blood No blood administrations on file. Lines, Drains, and Airways Type Details Placement Removal Peripheral IV Placement Date: 11/19 09/11; Placement Time: 0843; Placed Outside of This Facility?: No; Size: 20 G; Orientation: Proximal, Right; Location: Forearm, Basilic; Site Prep: Chlorhexidine; Local Anesthetic: None; Insertion attempts: 1; Patient Tolerance: Tolerated well; Removal Date: 12/02/22; Removal Time: 1050; Removal Reason: Therapy Completed 12/02/22 0843 by Gladys Moctezuma RN 12/02/22 1050 by Britt Gonzales RN documented in this encounter Social History Tobacco Use Types Packs/Day Years [...] on file documented as of this encounter OR Notes * Anesthesia Postprocedure Evaluation - Janine Nye CRNA - 12/02/2022 10:18 AM CDT Anesthesia Post-op Note Guzman Villagran Procedure(s): COLONOSCOPY with polypectomies Anesthesia type: MAC Vitals: 12/02/22 08 BP: 133/89 Vitals: 12/02/[address] Pulse: 77 Vitals: 12/02/22830 Resp: 18 Vitals: 12/02/22830 Temp: 37.1 ??C Vitals: 12/02/22830 SpO2: 94% Patient Location: Phase II/Outpatient Level of Consciousness: awake, alert and oriented Pain Management: adequate analgesia Airway Patency: patent Respiratory Status: acceptable Cardiovascular Status: acceptable Post-Op Nausea: none Postoperative Hydration: euvolemic There were no known notable events for this encounter. * Anesthesia Preprocedure Evaluation - Janine Nye CRNA - 11/23/2022 12:27 PM CDT Anesthesia ROS/MED History Reviewed: Patient summary , Nursing notes , Family history anesthesia, Anesthesia history , Medications Pre-Anesthetic State: Pulmonary (+) sleep apnea, asthma Cardiovascular (+) hypertension Neuro/Psych Substance Use (+) smoker (former) GI/Hepatic/Renal Endo/Other NPO Status: Physical Evaluation Airway Mallampati: II TM Distance: >3 FB Neck ROM: normal Dental No notable dental history Pulmonary Pulmonary exam normal Breath sounds clear to auscultation Cardiovascular Rhythm: regular Rate: normal STOP-Bang Assessment: Anesthesia Plan ASA 2 Intravenous Induction Anesthesia type: MAC Plan for Airway: nasal cannula/simple face mask Informed Consent Anesthetic plan and risks discussed with patient of whom consent was obtained. Consent of blood products not discussed. . documented in this encounter Plan of Treatment Not on file documented as of this encounter Visit Diagnoses Not on filedocumented in this encounter Administered Medications Inactive Administered Medications - up to 3 most recent administrations Medication Order MAR Action Action Date Dose Rate Site lactated ringers infusion at 125 mL/hr, Intravenous, Continuous, Starting on Mon12/02/22 at 0845, Until Mon12/02/22 at 1309, Pre-ProcedureIndication s:Screening for malignant neoplasm of colon Continued by Anesthesia 12/02/2022 9:33 AM CDT 125 mL/hr New Bag 12/02/2022 8:43 AM CDT 125 mL/hr lidocaine (PF) (XYLOCAINE) 1 % injection Intravenous, PRN, Starting on Mon12/02/22 at 0935, Until Mon12/02/22 at 1017, Anesthesia Intra-Op Given 12/02/2022 9:35 AM CDT 50 mg propofol (DIPRIVAN) IV bolus Intravenous, PRN, Starting on Mon12/02/22 at 0935, Until Mon12/02/22 at 1017, Anesthesia Intra-Op Given 12/02/2022 9:40 AM CDT 25 mg Given 12/02/2022 9:35 AM CDT 50 mg New Bag 12/02/2022 9:33 AM CDT 140 mcg/kg/min 80.052 mL /hr documented in this encounter Additional Health Concerns Assessment Noted Time PHQ-9 Depression Total Score: 0 06/28/19 22 3:59 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 [facility] [address] [place] [address] Deanne Sales Exhibitor CARDIOVASCULAR DISEASE 05/29/19 documented as of this encounter
--- OUTSIDE RECORDS SUMMARY | 2024-05-20 12:10 | XMS_ITS | Encounter Summary ---
Author Organization [facility] Address Critical access hospital6 [facility]. [place], [place] [address] [place] [address] Care Team Providers Care Peer Counselor Name Role Phone Joel Stinson MD Primary Care Provider + Senthil Fisher MD Unavailable [phone] Reason for Referral * Consultation (Routine) - Closed Specialty Diagnoses / Procedures Referred By Buck camacho Referred To Contact UROLOGY Diagnoses Benign prostatic hyperplasia with urinary obstruction Procedures OFFICE/OUTPT VISIT,NEW,LEVL III OFFICE/OUTPT VISIT,NEW,LEVL IV OFFICE/OUTPT VISIT,NEW,LEVL V OFFICE/OUTPT VISIT,EST,LEVL III OFFICE/OUTPT VISIT,EST,LEVL IV OFFICE/OUTPT VISIT,EST,LEVL V Joel Stinson MD [address] [address] Phone: tel: fax: Ramses Rendon MD [address] [place] [address] Phone: tel: fax: Referral ID Status Reason Start Date Expiration Date V isits Requested Visits Authorized [id number] Closed Specialty Services 08/05/2022 09/05/2023 99 99 * Consultation/Treatment (Routine) - Closed Specialty Diagnoses / Procedures Referred By Buck camacho Referred To Contact GENERAL SURGERY / SURGERY Diagnoses Colon cancer screening Procedures OFFICE/OUTPT VISIT,NEW,LEVL III OFFICE/OUTPT VISIT,NEW,LEVL IV OFFICE/OUTPT VISIT,NEW,LEVL V OFFICE/OUTPT VISIT,EST,LEVL III OFFICE/OUTPT VISIT,EST,LEVL IV OFFICE/OUTPT VISIT,EST,LEVL V Joel Stinson MD [address] [facility] [address] [place] [address] Phone: tel: fax: [facility] General Surgery - [place] [address], [address] [place] [address] Phone: tel: fax: Referral ID Status Reason Start Date Expiration Date Visits Re quested Visits Authorized [id number] Closed 08/05/2022 09/06/2023 1 1 Reason for Visit * Reason Comments Sore Throat On and off x2wk Congestion Cough Referral Urology, was seeing Dr Dillard Encounter Details Date Type Department Care Team (Late st Contact Info) Description 08/05/2022 9:40 AM CDT Office Visit [facility] [address] [place] [address] Joel Stinson MD [address] [facility] [address] [place] [address] Sore Throat (On and off x2wk); Congestion; Cough; Referral (Urology, was seeing Dr Kahn/colonoscopy) Social History Tobacco Use Types Packs/Day Years Used Date Smoking Tobacco: Former Cigarettes Q uit: 05/22/1998 Smokeless Tobacco: Never Tobacco Cessation:Counseling Given: No Alcohol Use Standard Drinks/Week Comments Yes 0 [...] AM CDT documented as of this encounter Last Filed Vital Signs Vital Sign Reading Time Taken Comments Blood Pressure 104/65 08/05/2022 9:39 AM CDT Pulse 66 08/05/2022 9:39 AM CDT Temperature 36.4 ??C (97.5 ??F) 08/05/2022 9:39 AM CD T Respiratory Rate 18 08/05/2022 9:39 AM CDT Oxygen Saturation 99% 08/05/2022 9:39 AM CDT Inhaled Oxygen Concentration - - Weight 100.1 kg (220 lb 9.6 oz) 08/05/2022 9:39 AM CDT Height 180.3 cm (5' 11 ) 08/05/2022 9:39 AM CDT Body Mass Index 30.77 08/05/2022 9:39 AM CDT documented in this encounter Patient Instructions * Patient Instructions* Joel Stinson MD - 08/05/2022 9:40 AM CDT Antibiotic and call back if symptoms do not resolve. Continue current medication for blood pressure. Will refer to urology and for screening colonoscopy. documented in this encounter Progress Notes * Joel Stinson MD - 08/05/2022 9:40 AM CDT Chief Complaint: Sore Throat (On and off x2wk), Congestion, Cough, Referral (Urology, was seeing DrDooley/colonoscopy), and Joint Pain (Bl fingers) HPI: Guzman Villagran is a 46-year-old male here for follow-up on chronic problems of HTN and BPH. He needs referral to new urologist as his left the area. Doing well on current medications without sideeffects. Complains of sinus symptoms with drainage and sore throat the past two weeks. ROS: Review of Systems Constitutional: Negative for fever. HENT: Positive for congestion, sinus pain and sore throat. Respiratory: Positive for cough. Cardiovascular: Negative for chest pain. Gastrointestinal: Negative for abdominal pain. Musculoskeletal: Negative for myalgias. Neurological: Negative for dizziness. Physical Exam Constitutional: General: He is not in acute distress. HENT: Right Ear: Tympanic membrane and ear canal normal. Left Ear: Tympanic membrane and ear canal normal. Nose: Congestion and rhinorrhea present. Mouth/Throat: Pharynx: Posterior oropharyngeal erythema present. No oropharyngeal exudate. Eyes: Conjunctiva/sclera: Conjunctivae normal. Cardiovascular: Rate and Rhythm: Normal rate and regular rhythm. Pulmonary: Breath sounds: Normal breath sounds. Abdominal: Palpations: Abdomen is soft. Tenderness: There is no abdominal tenderness. Musculoskeletal: Cervical back: Neck supple. Right lower leg: No edema. Left lower leg: No edema. Lymphadenopathy: Cervical: No cervical adenopathy. Skin: Findings: No rash. Neurological: Mental Status: He is alert. Current Outpatient Medications Medication Sig ??? alfuzosin ER (UROXATRAL) 10 MG 24 hr tablet Take 1 tablet (10 mg total) by mouth daily. ??? amoxicillin (AMOXIL) 875 MG tablet Take 1 tablet (875 mg total) by mouth 2 (two) times daily for 10 days. ??? lisinopril (PRINIVIL) 20 MG tablet TAKE 1 TABLET(20 MG) BY MOUTH DAILY No current facility-administered medications for this visit. Past Medical History: Diagnosis Date ??? Asthma ??? Chest pain ??? Hypertension, essential, benign ??? Kidney stones x 2 ??? Sleep apnea Past Surgical History: Procedure Laterality Date ??? EYE SURGERY 2021 Lasic ??? LASIK Left ??? SHOULDER SURGERY Bilateral torn labrum ??? SINUS SURGERY Social History Tobacco Use ??? Smoking status: Former Types: Cigarettes Quit date: 05/22/1998 Years since quittin.2 ??? Smokeless tobacco: Never Substance Use Topics ??? Alcohol use: Yes Comment: seldom Family History Problem Relation Name Age of Onset ??? Lung Cancer Mother Joy ??? Cancer Mother Joy ??? Heart Attack Father ??? Arthritis Maternal Grandmother Charlie Vitals: 08/05/22 0939 BP: 104/65 BP Location: Left arm Patient Position: Sitting Cuff size: Adult Large Pulse: 66 Temp: 97.5 ??F (36.4 ??C) TempSrc: Skin Weight: 100.1 kg (220 lb 9.6 oz) Height: 5' 11 (1.803 m) Diagnoses/Impression: Acute sinusitis, recurrence not specified, unspecified location (primary encounter diagnosis) Hypertension, essential, benign Benign prostatic hyperplasia with urinary obstruction Colon cancer screening Recommendations and Plan: Orders Placed This Encounter ??? Ambulatory referral to General Surgery ([facility]) Referral Priority: Routine Referral Type: Consultation/Treatment Requested Specialty: GENERAL SURGERY Number of Visits Requested: 1 Expiration Date: 09/06/2023 ??? Ambulatory referral to Urology (OTHER) Referral Priority: Routine Referral Type: Consultation Referral Reason: Specialty Services Requested Specialty: UROLOGY Number of Visits Requested: 1 Expiration Date: 09/05/2023 ??? amoxicillin (AMOXIL) 875 MG tablet Sig: Take 1 tablet (875 mg total) by mouth 2 (two) times daily for 10 days. Dispense: 20 tablet Refill: 0 Patient Instructions Antibiotic and call back if symptoms do not resolve. Continue current medication for blood pressure. Will refer to urology and for screening colonoscopy. JOEL STINSON MD Referring Provider: Self Referral PCP: JOEL STINSON MD documented in this encounter Plan of Treatment Scheduled Referrals Name Type Priority Associated Diagnoses Orde r Schedule Ambulatory referral to General Surgery ([facility]) Referral Routine Colon cancer screening Ordered: 08/05/2022 Ambulatory referral to Urology (OTHER) Referral Routine Benign prostatic hyperplasia with urinary obstruction Ordered: 08/05/2022 documented as of this encounter Visit Diagnoses Diagnosis Acute sinusitis, recurrence not specified, unspecified location- Primary Hypertension, essential, benign Essential hypertension, benign Benign prostatic hyperplasia with urinary obstruction Colon cancer screening Special screening for malignant neoplasms, colon documented in this encounter Additional Health Concerns Assessment Noted Time PHQ-9 Depression Total Score: 0 06/28/19 22 3:59 PM DRY CLEANING 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 [facility] [address] [place] [address] Deanne Warp Spooler CARDIOVASCULAR DISEASE 05/29/19 documented as of this encounter
--- OUTSIDE RECORDS SUMMARY | 2024-05-20 12:10 | XMS_ITS | Encounter Summary ---
Author Organization [facility] Address [facility]. [place], [place] [address] [place] [address] Care Team Providers Care Facilities Planner Name Role Phone Joel Tanner MD Primary Care Provider + Senthil Fisher MD Unavailable [phone] Reason for Referral * Consultation (Routine) - New Request Specialty Diagnoses / Procedures Referred By Buck camacho Referred To Contact UROLOGY Diagnoses Low testosterone Procedures OFFICE/OUTPATIENT NEW LOW MDM 30-44 MINUTES OFFICE/OUTPT VISIT,NEW,LEVL IV OFFICE/OUTPT VISIT,NEW,LEVL V OFFICE/OUTPT VISIT,EST,LEVL III OFFICE/OUTPT VISIT,EST,LEVL IV OFFICE/OUTPT VISIT,EST,LEVL V Joel Tanner MD [address] [address] Phone: tel: fax: [facility] Urology [address] [place] [address] Phone: tel: fax: Referral ID Status Reason Start Date Expiration Date Visits Requested Visits Authorized [id number] New Request Specialty Services 05/23/2023 06/22/2024 1 1 RACT PREPARER Encounter Details Date Type Department Care Team (Late st Contact Info) Description 05/23/2023 Blueseed Message Enc [facility] [address] [place] [id number] [facility] Provider results Social History Tobacco Use Types Packs/Day Years [...] as of this encounter Plan of Treatment Scheduled Referrals Name Type Priority Associated Diagnoses Orde r Schedule Ambulatory referral to Urology (OTHER) Referral Routine Low testosterone Ordered: 05/23/2023 documented as of this encounter Visit Diagnoses Diagnosis Mixed hyperlipidemia- Primary Low testosterone Other testicular hypofunction documented in this encounter Additional Health Concerns Assessment Noted Time PHQ-9 Depression Total Score: 0 06/28/19 22 3:59 PM 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 [place] [address] [place] [address] [place] Critical Power Install Technician CARDIOVASCULAR DISEASE 05/29/19 documented as of this encounter
--- OUTSIDE RECORDS SUMMARY | 2024-05-20 12:10 | XMS_ITS | Encounter Summary ---
Author Organization [facility] Address Critical access hospital6 [facility]. [place], [place] [address] [place] [address] Care Team Providers Care General Repair Mechanic Name Role Phone Joel Tanner MD Primary Care Provider + Senthil Fisher MD Unavailable [phone] Encounter Details Date Type Department Care Team (Latest Contact Info) Description 08/05/2022 Travel Social History Tobacco Use Types Packs/Day [...] Total Score: 0 06/28/19 22 3:59 PM PULP DRIER documented as of this encounter Care Teams General Repair Mechanic Relationship Specialty Start Date End Date Joel Tanner MD [address] [facility] [address] [place] [address] PCP - General FAMILY PRACTICE 05/24/19 02/27/24 Senthil Fisher MD [address] [facility] [address] [place] [address] Deanne Diesel Engine Tester CARDIOVASCULAR DISEASE 05/29/19 documented as of this encounter
--- OUTSIDE RECORDS SUMMARY | 2024-05-20 12:10 | XMS_ITS | Encounter Summary ---
Author Organization [facility] Address [facility] [place], [place] [address] [place] [address] Care Team Providers Care Wet Press Tender Name Role Phone Joel Tanner MD Primary Care Provider + Senthil Fisher MD Unavailable [phone] Reason for Visit * Auth/Cert (Routine) Specialty Diagnoses / Procedures Referred By Contamy t Referred To Contact Diagnoses Screening for malignant neoplasm of colon Screening colonoscopy Procedures COLONOSCOPY,DIAGNOSTIC COLONOSCOPY Oksana Szymanski MD [address] [place] [address] Phone: tel: fax: Referral ID Status Reason Start Date Expiration Date Visits Re quested Visits Authorized [id number] 1 1 Encounter Details Date Type Department Care Team (Late st Contact Info) Description 12/02/2022 9:28 AM CDT - 12/02/2022 10:12 AM CDT Surgery [facility] [address] [place] [address] Oksana Szymanski MD [address] [place] [address] COLONOSCOPY with polypectomies Surgery Details Date/Time Status Location OR Service Patient Class Case Class Case Type Trauma Case? 12/02/2022 9:28 AM Posted [facility] OR OR 2 Gastroenterology Short Stay/Outpa tient Surgery No Panel 1 Procedure LRB Anes Op Region Wound Class Comments COLONOSCOPY with polypectomies N/A Monitor Anesthesia Care Clean Contaminated Surgeon Surgeon Role Service Panel Oksana Szymanski MD Primary Gastroenterology 1 documented in this encounter Social History Tobacco [...] Sign Reading Time Taken Comments Blood Pressure 133/89 12/02/2022 8:31 AM CDT Pulse 77 12/02/2022 8:31 AM CDT Temperature 37.1 ??C (98.8 ??F) 12/02/2022 8:31 AM CD T Respiratory Rate 18 12/02/2022 8:31 AM CDT Oxygen Saturation 94% 12/02/2022 8:31 AM CDT Inhaled Oxygen Concentration - - Weight 95.3 kg (210 lb) 11/23/2022 11:39 AM CDT Height 180.3 cm (5' 11 ) 11/23/2022 11:39 AM CDT Body Mass Index 29.29 11/23/2022 11:39 AM CDT documented in this encounter Discharge Instructions * Attachments The following attachments cannot be sent through Care Everywhere. * Colonoscopy Discharge Instructions (Latvian) * Monitored Anesthesia Care (Latvian) * Colon polyps (Latvian) documented in this encounter Medications at Time of Discharge alfuzosin ER (UROXATRAL) 10 MG 24 hr tabletIndications: Benign prostatic hyperplasia with urinary obstruction Take 1 tablet (10 mg total) by mouth daily. 90 tablet 3 12/29/2021 lisinopril (PRINIVIL) 20 MG tabletIndications: Hypertension, unspecified type TAKE 1 TABLET(20 MG) BY MOUTH DAILY 90 tablet 1 06/30/2022 12/26/2022 documented as of this encounter H&P Notes * Oksana Szymanski MD - 12/02/2022 8:43 AM CDT Reason for Visit: Consult (New patient colon consult) History of Present Illness: Heron Romano is a 47-year-old male who was referred [...] 1 Allergies No Known Allergies Past Medical History Past Medical History: Diagnosis Date Asthma Chest pain Hypertension, essential, benign Kidney stones x 2 Sleep apnea Past Surgical History Past Surgical History: Procedure Laterality Date EYE SURGERY 2021 Lasic LASIK Left SHOULDER SURGERY Bilateral torn labrum SINUS SURGERY Social History Tobacco Use Smoking status: Former Types: Cigarettes Quit date: 05/22/1998 Years since quittin.3 Smokeless tobacco: Never Vaping Use Vaping Use: Never used Substance Use Topics Alcohol use: Yes Comment: seldom Drug use: Not Currently Types: Marijuana Family History Family History Problem Relation Name Age of [...] and Affect: Mood normal. Behavior: Behavior normal. Vitals Vitals: 09/14/22 1538 Patient Position: Sitting BP Location: Left arm Cuff size: Adult Large BP: 134/84 Pulse: 83 Body mass index is 29.57 kg/m??. Diagnoses/Impression: 1. Encounter for screening for malignant neoplasm of colon Recommendations and Plan: Heron Romano 47-year-old male due for a screening colonoscopy. [...] services and to participate in the care ofHeron Romano. Oksana Szymanski MD documented in this encounter OR Notes * Op Note - Oksana Szymanski MD - 12/02/2022 10:22 AM CDT Colonoscopy Procedures Patient name: Heron Romano Date of : 1975 [place] Time out Complete: Yes Consent Obtained: Yes Surgeon: Oksana Szymanski MD Supervisor Prepress: Circulating Nurse 1: Linda Gamez RN Circulating Nurse 2: Camille Thomas RN Scrub Person 1: Mickey Ríos RN Anesthesia Present: Yes Type of Anesthesia: Monitored Anesthesia Care Mechanical Ventilation: No Medication Used: Refer to anesthesia Pre-Procedure Diagnosis: Colon cancer screening Post Procedure Diagnosis: Small hyperplastic appearing polyps Date of Last Colonoscopy: Initial Colonoscopy: Colonoscopy-Complete and Colonoscopy w/polyp removal Quality of prep: Good De Witt bowel prep score 7 Procedure Device: Fiber-optic flexible Approach: Anal/Rectal Procedure Performed: Inspection and polypectomies Cecal Intubation: Yes Electrocautery Used: Yes Specimens to Laboratory: Colon polyps Withdraw time: 7 minutes or over EBL: Minimal INTRODUCTION: Patient is a 47-year-old male here for a colonoscopy. INDICATION: Screening PROCEDURE: Complete colonoscopy with hot and cold biopsy polypectomies ENDOSCOPE: Olympus 190 ASA: 2 COMPLICATIONS: No immediate complications PRE-ANESTHESIA ASSESSMENT: Patient is alert and oriented. No change in history and physical. After reviewing the risks and benefits, the patient was deemed in satisfactory condition to undergo the procedure. DESCRIPTION OF PROCEDURE: The risks, benefits and alternatives of the procedure were discussed with the patient in the officeincluding but not limited to bleeding, perforation, possible need for further procedure or surgery.I discussed the visual limitations (especially with prep difficulties). Ample time was given for que stions and all questions were answered and informed consent was obtained. The patient was taken to the endoscopy suite and was placed in the left lateral decubitus position after appropriate sedation. Digital rectal exam was performed and was normal. A lubricated colonoscope was introduced through the anus under direct vision and advanced into the rectum, through the sigmoid colon, left colon, splenic flexure, transverse colon, hepatic flexure, right colon and into thececum. Cecal landmarks (transillumination in the right lower quadrant, identification of ileocecal valve, appendiceal orifice and cecal strap) were clearly identified and appeared normal. The ileocecal valve was visualized and appeared normal. The terminal ileum was intubated for a short distance and appeared normal. I withdrew the scope while carefully examining the mucosa of the entire colon. When stated that a polyp was removed, it was removed in its entirety unless otherwise indicated. Hemostasis checked and achieved. Findings: Cecum: normal Ileocecal Valve: normal Ascending Colon: normal Hepatic Flexure: normal Transverse Colon: normal Splenic Flexure: normal Descending Colon: normal Sigmoid Colon: abnormal (hyperplastic appearing polyps measuring 2 mm x 1 and 1 mm x 3 removed using a combination of hot and cold biopsy forceps) Rectum: abnormal (1 mm hyperplastic appearing polyp removed using hot biopsy forceps) Anal canal: normal The rectum on forward view and retroflexed view appeared normal without any evidence of internal hemorrhoids or anorectal pathology. Air was removed from the colon and the scope retrieved. Scope withdrawal time was at least 7 minutes. The patient tolerated the procedure well and was sent to the recovery room in stable condition. RECOMMENDATIONS: - Await pathology for colonoscopy schedule - Outpatient follow-up for discussion of findings Note: This note was created with the aid of dictation software, thus there may be some word substitutions or errors. Again, thank you for allowing me to provide consultative services and to participate in the care ofNelsonelias Romano. Oksana Szymanski MD 12/02/2022 10:22 AM documented in this encounter Plan of Treatment Not on file documented as of this encounter Procedures Procedure Name Priority Date/Time Associated Diagnosis Comments COLONOSCOPY FLX DX W/COLLJ SPEC WHEN PFRMD 12/02/2022 9:33 AM CDT Screening for malignant neoplasm of colon COLONOSCOPY Routine 12/02/2022 8:21 AM CDT PATHOLOGY Routine 12/02/2022 12:00 AM CDT documented in this encounter Results * Pathology (12/02/2022 12:00 AM CDT) PATHOLOGY [facility] ? Department of Laboratory Medicine ?[address] [facility] ?[place] [address] ? , extension [phone] ? Pathology Report ? Surgical Pathology Report Name: HERON ROMANO ? Specimen #: [id number] Age: 4 1975 (Age: 47) ?Location: [facility] Sex: M ?Procedure Date: 12/02/2022 Hospital #: [id number] ?Date Received: 12/05/2022 Date Reported: 12/08/2022 Provider: OKSANA SZYMANSKI MD Source: A: Colon, sigmoid, polyps B: Rectum, polyp Clinical History: Screening colonoscopy. Gross Description: Received in two parts: A) Received in formalin, labeled with a patient label and as sigmoid are five pieces of chan tissue ranging from 0.1 to 0.3 cm. ??The specimen is entirely submitted in cassette A1. B) Received in formalin, labeled with a patient label and as rectal polyp is a 0.2 cm piece of chan tissue which is entirely submitted in cassette B1. Gross examination (when applicable), interpretation and sign-out were performed at [facility], [address] [place] [address], Formerly [facility]. FINAL DIAGNOSIS: A) COLON, SIGMOID POLYPS, BIOPSY: ? - HYPERPLASTIC POLYPS (MULTIPLE FRAGMENTS). B) COLON, RECTAL POLYP, BIOPSY: ? - HYPERPLASTIC POLYP. Electronically Signed Out ? Karen Marte MD [facility] TISSUE COLON STRUCTURE / Unknown 12/02/2022 10:10 AM CDT Tissue specimen (specimen) COLON STRUCTURE / Unknown 12/02/2022 10:14 AM CDT us Oksana Szymanski MD PATHOLOGY/CYTOLOGY ORDERABLE S Final Result [facility] [address] [place] [address], [id number] documented in this encounter Visit Diagnoses Diagnosis Screening for malignant neoplasm of colon- Primary Screening for malignant neoplasm of colon Screening for malignant neoplasm of colon documented in this encounter Admitting Diagnoses Diagnosis Screening for malignant neoplasm of colon documented in this encounter Administered Medications Inactive Administered [...] Bag 12/02/2022 8:43 AM CDT 125 mL/hr documented in this encounter Active and Recently Administered Medications Times are shown in CDT. 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 [facility] [address] [place] [address] Deanne Collector Of Internal Revenue CARDIOVASCULAR DISEASE 05/29/19 documented as of this encounter
--- OUTSIDE RECORDS SUMMARY | 2024-05-20 12:10 | XMS_ITS | Encounter Summary ---
Author Organization [facility] Address [facility] [facility]. [place], [place] [address] [place] [address] Care Team Providers Care Wine Master Name Role Phone Joel Tanner MD Primary Care Provider + Senthil Fisher MD Unavailable [phone] Encounter Details Date Type Department Care Team (Latest Contact Info) Description 05/17/2023 Travel Social History Tobacco Use Types Packs/Day [...] Total Score: 0 06/28/19 22 3:59 PM HARDWOOD SAWYER documented as of this encounter Care Teams Wine Master Relationship Specialty Start Date End Date Joel Tanner MD [facility] [facility] 112 [place] [address] PCP - General FAMILY PRACTICE 05/24/19 02/27/24 Senthil Fisher MD Three [facility]. [facility] [address] [place] [address] Deanne Blanket Cutting Machine Operator CARDIOVASCULAR DISEASE 05/29/19 documented as of this encounter
--- OUTSIDE RECORDS SUMMARY | 2024-05-20 12:10 | XMS_ITS | Encounter Summary ---
Author Organization [facility] Address [facility]6 [facility]. [place], [place] [address] [place] [address] Care Team Providers Care Sparker And Patcher Name Role Phone Joel Tanner MD Primary Care Provider + Senthil Fisher MD Unavailable Reason for Referral * Surgical (Routine) - Closed Specialty Diagnoses / Procedures Referred By Buck camacho Referred To Contact Diagnoses Screening for malignant neoplasm of colon Procedures Case request operating room: COLONOSCOPY DIAGNOSTIC WITH/WITHOUT SPECIMEN BRUSH/WASH POSSIBLE BIOPSY POSSIBLE POLYPCTOMY Kyra Hernández MD [address] [facility] 404 [place] [address] Phone: tel: fax: Referral ID Status Reason Start Date Expiration Date Visits Re quested Visits Authorized [id number] Closed 09/26/2022 09/27/2023 1 1 Encounter Details Date Type Department Care Team (Late st Contact Info) Description 09/26/2022 Prep for Procedure [facility] [address] [place] [address] Kyra Hernández MD [address] [facility] [address] [place] [address] Social History Tobacco Use Types Packs/Day Years [...] PM CDT documented as of this encounter Plan of Treatment Not on file documented as of this encounter Visit Diagnoses Diagnosis Screening for malignant neoplasm of colon- Primary documented in this encounter Additional Health Concerns Assessment Noted Time PHQ-9 Depression Total Score: 0 06/28/19 22 3:59 PM REMEDIATION BIOANALYTICS CONSULTANT documented as of this encounter Care Teams Sparker And Patcher Relationship Specialty Start Date End Date Joel Tanner MD 9401 [facility] 112 [place] [phone] PCP - General FAMILY PRACTICE 05/24/19 02/27/24 Senthil Fisher MD [facility]. [facility] [address] [place] [address] Deanne Pipelines Laborer CARDIOVASCULAR DISEASE 05/29/19 documented as of this encounter
--- OUTSIDE RECORDS SUMMARY | 2024-05-20 12:10 | XMS_ITS | Encounter Summary ---
Author Organization [facility] Address [facility]. [place], [place] [address] [place] [address] Care Team Providers Care Retail Loss Prevention Officer Name Role Phone Joel Tanner MD Primary Care Provider + Senthil Fisher MD Unavailable [phone] Reason for Visit * Reason Onset Date Comments Lab Order 02/04/2022 Encounter Details Date Type Department Care Team (Late st Contact Info) Description 02/04/[address] [facility] [address] [place] [address] Joel Tanner MD [address] [facility] 112 [place] [address] Lab Order Social History Tobacco Use Types Packs/Day Years [...] suspected to have Coronavirus/COVID-19? No / Unsure 02/04/2022 8:37 AM CDT documented as of this encounter Progress Notes * Joel Tanner MD - 02/04/2022 9:54 AM CDT Ok--he does have a history fo low testosterone * Cat Brenner - 02/04/2022 8:59 AM CDT Guzman just seen TMB and he forgot to ask about having testosterone checked. He is asking for an order to be placed for testosterone. Any ?'s, please call. documented in this encounter Plan of Treatment Not on file documented as of this encounter Results * TESTOSTERONE, FREE & TOTAL (02/14/2022 11:19 AM CDT) TESTOSTERONE TOTAL 321 250 - 1,100 ng/dL 02/19/2022 9:51 PM CDT [facility] [place] Comment: For additional information, please refer to http://education.CryoTherapeutics.Power OLEDs/faq/ [email or web address] (This link is being provided for informational/ educational purposes only.) This test was developed and its analytical performance characteristics have been determined by [place]. It has not been cleared or approved by the U.S. Food and Drug Administration. This assay has been validated pursuant to the CLIA regulations and is used for clinical purposes. TESTOSTERONE FREE 58.4 35.0 - 155.0 pg/mL 02/19/2022 9:51 PM CDT [facility] [place] Comment: This test was developed and its analytical performance characteristics have been determined by [facility] [place], [place]. It has not been cleared or approved by the U.S. Food and Drug Administration. This assay has been validated pursuant to the CLIA regulations and is used for clinical purposes. Test Performed by [email or web address], [facility], [address] [place], [place] Darnell Bello M.D., Ph.D., Director of Laboratories , CLIA [id number] 02/14/2022 11:1 9 AM CDT Joel Tanner MD LABORATORY Final Re sult [facility] [place] [id number] [place], [place] , [place] [phone] documented in this encounter Visit Diagnoses Diagnosis Low testosterone- Primary Other testicular hypofunction documented in this encounter Additional Health Concerns Assessment Noted Time PHQ-9 Depression Total Score: 0 06/28/19 22 3:59 PM RENAL DIALYSIS TECHNICIAN documented as of this encounter Care Teams Retail Loss Prevention Officer Relationship Specialty Start Date End Date Joel Tanner MD 9401 [facility] 112 [place] [phone] PCP - General FAMILY PRACTICE 05/24/19 02/27/24 Senthil [facility] MD [facility] [place] [place] [address] Deanne Reiki Practitioner CARDIOVASCULAR DISEASE 05/29/19 documented as of this encounter
--- OUTSIDE RECORDS SUMMARY | 2024-05-20 12:10 | XMS_ITS | Encounter Summary ---
Author Organization [facility] Address [facility]6 [facility]. 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 [facility] 1800 [place] [address] Deanne Installer Apprentice CARDIOVASCULAR DISEASE 05/29/19 documented as of this encounter
--- OUTSIDE RECORDS SUMMARY | 2024-05-20 12:10 | XMS_ITS | Encounter Summary ---
Author Organization [facility] Address [facility]6 [facility]. [place], [place] [address] [place] [address] Care Team Providers Care Data Lead Name Role Phone Joel Stinson MD Primary Care Provider + Senthil Fisher MD Unavailable [phone] Reason for Visit * Reason Comments Follow Up Med review Encounter Details Date Type Department Care Team (Late st Contact Info) Description 02/04/2022 8:40 AM CDT Office Visit [facility] [address] [place] [address] Joel Stinson MD [address] [facility] 112 [place] [address] Follow Up (Med review) Social History Tobacco Use Types Packs/Day Years [...] Sign Reading Time Taken Comments Blood Pressure 100/64 02/04/2022 8:45 AM CDT Pulse 82 02/04/2022 8:45 AM CDT Temperature 36.6 ??C (97.9 ??F) 02/04/2022 8:45 AM CD T Respiratory Rate 18 02/04/2022 8:45 AM CDT Oxygen Saturation 97% 02/04/2022 8:45 AM CDT Inhaled Oxygen Concentration - - Weight 100.9 kg (222 lb 6.4 oz) 02/04/2022 8:45 AM CDT Height 180.3 cm (5' 11 ) 02/04/2022 8:45 AM CDT Body Mass Index 31.02 02/04/2022 8:45 AM CDT documented in this encounter Patient Instructions * Patient Instructions* Joel Stinson MD - 02/04/2022 8:40 AM CDT Monitor your blood pressure over the next two weeks. If consistently below 120 will lower Lisinopril to 10 mg. Recheck lab work. documented in this encounter Progress Notes * Joel Stinson MD - 02/04/2022 8:40 AM CDT Chief Complaint: Follow Up (Med review) HPI: Guzman Villagran is a 46-year-old male here for follow-up on blood pressure. He has been doing well with recent diet and exercise. Blood pressure a little low today. He has not had any symptoms of dizziness. We will have him monitor blood pressure at home to see if need to decrease dose of his medicine. No acute illness. ROS: Review of Systems Constitutional: Negative for fever. Respiratory: Negative for cough. Cardiovascular: Negative for chest pain and palpitations. Gastrointestinal: Negative for abdominal pain. Neurological: Negative for dizziness and headaches. Physical Exam Constitutional: General: He is not in acute distress. Cardiovascular: Rate and Rhythm: Normal rate. Pulmonary: Breath sounds: Normal breath sounds. Musculoskeletal: Cervical back: Neck supple. Right lower leg: No edema. Left lower leg: No edema. Neurological: Mental Status: He is alert. Psychiatric: Mood and Affect: Mood normal. Current Outpatient Medications Medication Sig ??? alfuzosin ER (UROXATRAL) 10 MG 24 hr tablet Take 1 tablet (10 mg total) by mouth daily. ??? lisinopril (PRINIVIL) 20 MG tablet TAKE 1 TABLET(20 MG) BY MOUTH DAILY No current facility-administered medications for this visit. Past Medical History: Diagnosis Date ??? Chest pain ??? Hypertension, essential, benign ??? Kidney stones x 2 ??? Sleep apnea Past Surgical History: Procedure Laterality Date ??? LASIK Left ??? SHOULDER SURGERY Bilateral torn labrum ??? SINUS SURGERY Social History Tobacco Use ??? Smoking status: Former Smoker Types: Cigarettes Quit date: 1998 Years since quittin.7 ??? Smokeless tobacco: Never Used Substance Use Topics ??? Alcohol use: Yes Comment: seldom Family History Problem Relation Name Age of Onset ??? Lung Cancer Mother ??? Heart Attack Father Vitals: 02/04/22 0845 BP: 100/64 BP Location: Left arm Patient Position: Sitting Cuff size: Adult Long Pulse: 82 Temp: 97.9 ??F (36.6 ??C) Weight: 100.9 kg (222 lb 6.4 oz) Height: 5' 11 (1.803 m) Diagnoses/Impression: Hypertension, essential, benign (primary encounter diagnosis) Recommendations and Plan: Orders Placed This Encounter ??? COMPREHENSIVE METABOLIC PANEL Standing Status: Future Standing Expiration Date: 02/04/2023 Order Specific Question: Release to patient Answer: System release ??? LIPID PANEL Standing Status: Future Standing Expiration Date: 02/04/2023 Order Specific Question: Release to patient Answer: System release Patient Instructions Monitor your blood pressure over the next two weeks. If consistently below 120 will lower Lisinopril to 10 mg. Recheck lab work. JOEL STINSON MD Referring Provider: Self Referral PCP: JOEL STINSON MD documented in this encounter Plan of Treatment Not on file documented as of this encounter Results * (ABNORMAL) LIPID PANEL (02/14/2022 11:19 AM CDT) [facility] CHOLESTEROL 195 <200 MG/DL 02/14/2022 12:02 PM CDT [facility] TRIGLYCERIDES 115 <150 MG/DL 02/14/2022 12:02 PM T [facility] HDL 49 >40.0 MG/DL 02/14/2022 12:02 PM [facility] LDL (CALCULATED) 123(H) <100 MG/DL 02/14/2022 12:02 PM T [facility] NON HDL CHOLESTEROL 146(H) <130 MG/DL 02/14/2022 12:02 PM T [facility] Comment: NOTE: WHEN THE TRIGLYCERIDES ARE >200 mg/dL, NON HDL C IS A SECONDARY TARGET OF THERAPY, WITH A GOAL 30 mg/dL HIGHER THAN THE IDENTIFIED LDL C GOAL. CHOL/HDL RATIO 4.0 0.0 - 4.5 02/14/2022 12:02 PM T [facility] VLDL CALCULATION 23 5 - 55 MG/DL 02/14/2022 12:02 PM [facility] LIPID INTERPRETATION 02/14/2022 12:02 PM T [facility] Comment: NIH CONCENSUS REPORT RECOMMENDATIONS: [...] >=160 ?>=130 02/14/2022 11:1 9 AM CDT us Joel Stinson MD LABORATORY Final Re sult [facility] [address] [place] [address], * (ABNORMAL) COMPREHENSIVE METABOLIC PANEL (02/14/2022 11:19 AM CDT) GLUCOSE 111(H) 70 - 99 MG/DL 02/14/2022 12:02 PM [facility] BUN 16 7 - 18 MG/DL 02/14/2022 12:02 PM [facility] CREATININE S/P/B 0.80 0.7 - 1.3 MG/DL 02/14/2022 12:02 PM [facility] SODIUM S/P/B 139 136 - 145 MMOL/L 02/14/2022 12:02 PM [facility] POTASSIUM S/P/B 4.0 3.5 - 5.1 MMOL/L 02/14/2022 12:02 PM [facility] CHLORIDE S/P/B 104 100 - 108 MMOL/L 02/14/2022 12:02 PM [facility] CO2 28.6 21 - 32 MMOL/L 02/14/2022 12:02 PM [facility] CALCIUM S/P/B 8.5 8.5 - 10.1 MG/DL 02/14/2022 12:02 PM [facility] BILIRUBIN TOTAL S/P/B 0.9 0.2 - 1.2 MG/DL 02/14/2022 12:02 PM [facility] Comment: THIS ASSAY IS NOT RECOMMENDED FOR PATIENTS UNDERGOING TREATMENT WITH ELTROMBOPAG DUE TO THE POTENTIAL FOR FALSELY ELEVATED RESULTS. TOTAL PROTEIN S/P/B 7.1 6.4 - 8.2 G/DL 02/14/2022 12:02 PM [facility] ALBUMIN S/P/B 3.9 3.4 - 5.0 G/DL 02/14/2022 12:02 PM [facility] AST 25 15 - 37 U/L 02/14/2022 12:02 PM [facility] ALT 42 16 - 60 U/L 02/14/2022 12:02 PM CDT [facility] ALKALINE PHOSPHATASE S/P/B 67 50 - 136 U/L 02/14/2022 12:02 PM T [facility] ANION GAP 6.4 5 - 15 MMOL/L 02/14/2022 12:02 PM T [facility] BUN CREATININE RATIO 20.0 6 - 26 02/14/2022 12:02 PM T [facility] A/G RATIO 1.2 1.0 - 2.0 RATIO 02/14/2022 12:02 PM T [facility] GFR ESTIMATE >90 >90 ML/MIN/1.7 3 M2 02/14/2022 12:02 PM T [facility] Comment: NOTE: eGFR is not calculated for patients <18 years of age. This is an estimated GFR calculation using the new CKD EPI creatinine equation without race and so does not require a correction factor for race. This estimated GFR should not be used for calculating drug doses. 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 [address] [place] [address] Milton Clay Hoister CARDIOVASCULAR DISEASE 05/29/19 documented as of this encounter
--- OUTSIDE RECORDS SUMMARY | 2024-05-20 12:10 | XMS_ITS | Encounter Summary ---
Author Organization [facility] Address [facility]6 [facility]. [place], [place] [address] [place] [address] Care Team Providers Care Safety Engineer Name Role Phone Joel Tanner MD Primary Care Provider + Senthil Fisher MD Unavailable [phone] Encounter Details Date Type Department Care Team (Late st Contact Info) Description 02/16/2022 [employer] Message 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 [facility] [address] [place] [address] Deanne Cake Inspector CARDIOVASCULAR DISEASE 05/29/19 documented as of this encounter
--- OUTSIDE RECORDS SUMMARY | 2024-05-20 12:10 | XMS_ITS | Encounter Summary ---
Author Organization [facility] Pending [facility] to [facility]. [place], [place] [address] [place] [address] Care Team Providers Care Manager Math Name Role Phone Joel Tanner MD Primary Care Provider + Senthil Fisher MD Unavailable [phone] Encounter Details Date Type Department Care Team (Latest Contact Info) Description 10/06/2022 Scan HEALTH INFO SRVCS Scanned, Doc Med Group Social History Tobacco Use Types Packs/Day Years [...] Total Score: 0 06/28/19 22 3:59 PM GAS GENERATOR OPERATOR documented as of this encounter Care Teams Manager Math Relationship Specialty Start Date End Date Joel Tanner MD [address] [place] [address] PCP - General FAMILY PRACTICE 05/24/19 02/27/24 Senthil Fisher MD Three [facility]. [facility] [address] [place] [address] Deanne Fishing Hand CARDIOVASCULAR DISEASE 05/29/19 documented as of this encounter
--- OUTSIDE RECORDS SUMMARY | 2024-05-20 12:10 | XMS_ITS | Encounter Summary ---
Author Organization [facility] Address [facility]6 [facility]. [place], [place] [address] [place] [address] Care Team Providers Care Aviation Electrician Name Role Phone Joel Tanner MD Primary Care Provider + Senthil Fisher MD Unavailable [phone] Encounter Details Date Type Department Care Team (Latest Contact Info) Description 09/14/2022 Travel Social History Tobacco Use Types Packs/Day [...] Total Score: 0 06/28/19 22 3:59 PM MOLASSES COLORING OPERATOR documented as of this encounter Care Teams Aviation Electrician Relationship Specialty Start Date End Date Joel Tanner MD 9401 [facility] [address] [place] [address] PCP - General FAMILY PRACTICE 05/24/19 02/27/24 Senthil Fisher MD [address] [facility] [address] [place] [address] Deanne Feather Drying Machine Operator CARDIOVASCULAR DISEASE 05/29/19 documented as of this encounter
--- OUTSIDE RECORDS SUMMARY | 2024-05-20 12:10 | XMS_ITS | Encounter Summary ---
Author Organization [facility] Address [facility]6 [facility]. [place], [place] [address] [place] [address] Care Team Providers Care Mobile Device Engineer Name Role Phone Joel Tanner MD Primary Care Provider + Senthil Fisher MD Unavailable [phone] Encounter Details Date Type Department Care Team (Late st Contact Info) Description 04/23/2023 [place] Message [facility] [address] [place] [address] Joel Tanner MD [address] [place] [address] Blood work Social History Tobacco Use Types Packs/Day Years [...] as of this encounter Results * TESTOSTERONE, TOTAL (05/17/2023 7:31 AM LIQUEFACTION PLANT OPERATOR) TESTOSTERONE TOTAL 255 250 - 1,100 ng/dL 05/20/2023 11:34 AM LIQUEFACTION PLANT OPERATOR [employer] [facility] Comment: For additional information, please refer to http://education.whoplusyou/faq/ [email or web address] (This link is being provided for informational/ educational purposes only.) This test was developed and its analytical performance characteristics have been determined by [place], [place]. It has not been cleared or approved by the U.S. Food and Drug Administration. This assay has been validated pursuant to the CLIA regulations and is used for clinical purposes. Test Performed by [facility], [facility], [address] [place] [address] Darnell Bello M.D., Ph.D., Director of Laboratories , CLIA [id number] 05/17/2023 7:31 AM LIQUEFACTION PLANT OPERATOR Joel Tanner MD LABORATORY Final Re sult [employer] [address] , documented in this encounter Visit Diagnoses Diagnosis Low testosterone- Primary Other testicular hypofunction documented in this encounter Additional Health Concerns Assessment Noted Time PHQ-9 Depression Total Score: 0 06/28/19 22 3:59 PM LIQUEFACTION PLANT OPERATOR documented as of this encounter Care Teams Mobile Device Engineer Relationship Specialty Start Date End Date Joel Tanner MD [address] [place] [phone] PCP - General FAMILY PRACTICE 05/24/19 02/27/24 Senthil Fisher MD Three [facility]. [address] [address] [place] Bisque Kiln Drawer CARDIOVASCULAR DISEASE 05/29/19 documented as of this encounter
--- OUTSIDE RECORDS SUMMARY | 2024-05-20 12:10 | XMS_ITS | Encounter Summary ---
Author Organization [facility] Address [facility]. [place], [place] [address] [place] [address] Care Team Providers Care Account Development Manager Name Role Phone Joel Tanner MD Primary Care Provider + Senthil Fisher MD Unavailable [phone] Reason for Visit * Auth/Cert (Routine) Specialty Diagnoses / Procedures Referred By Contac t Referred To Contact Diagnoses Screening for malignant neoplasm of colon Screening colonoscopy Procedures COLONOSCOPY,DIAGNOSTIC COLONOSCOPY Oksana Szymanski MD [address] [facility] [address] [place] [address] Phone: tel: fax: Referral ID Status Reason Start Date Expiration Date Visits Re quested Visits Authorized [id number] 1 1 Encounter Details Date Type Department Care Team (Latest Contact Info) Description 12/02/2022 8:17 AM CDT - 12/02/2022 11:09 AM CDT Hospital Encounter [facility] [address] [place] [address] Oksana Szymanski MD [facility] [address] [place] [address] Discharge Disposition: Home or Self Care (Routine [...] Sign Reading Time Taken Comments Blood Pressure 119/77 12/02/2022 10:45 AM CDT Pulse 77 12/02/2022 8:31 AM CDT Temperature 37.1 ??C (98.8 ??F) 12/02/2022 8:31 AM CD T Respiratory Rate 18 12/02/2022 8:31 AM CDT Oxygen Saturation 99% 12/02/2022 10:45 AM CDT Inhaled Oxygen Concentration - - Weight 95.3 kg (210 lb) 11/23/2022 11:39 AM CDT Height 180.3 cm (5' 11 ) 11/23/2022 11:39 AM CDT Body Mass Index 29.29 11/23/2022 11:39 AM CDT documented in this encounter Discharge Instructions * Attachments The following attachments cannot be sent through Care Everywhere. * Colonoscopy Discharge Instructions (Gambian) * Monitored Anesthesia Care (Gambian) * Colon polyps (Gambian) documented in this encounter Medications at Time [...] name: Heron Romano Date of : 1975 Brewer Time out Complete: Yes Consent Obtained: Yes Surgeon: Oksana Szymanski MD Terrazzo Layer Helper: Circulating Nurse 1: Linda Gamez RN Circulating Nurse 2: Camille Thomas RN Scrub Person 1: Mickey Ríos RN Anesthesia Present: Yes Type of Anesthesia: Monitored Anesthesia Care Mechanical Ventilation: No Medication Used: Refer to anesthesia Pre-Procedure Diagnosis: Colon cancer screening Post Procedure Diagnosis: Small hyperplastic appearing polyps Date of Last Colonoscopy: Initial Colonoscopy: Colonoscopy-Complete and Colonoscopy w/polyp removal Quality of prep: Good [place] bowel prep score 7 Procedure Device: Fiber-optic [...] services and to participate in the care ofJeremyconnie Romano. Oksana Szymanski MD 12/02/2022 10:22 AM [...] * Pathology (12/02/2022 12:00 AM CDT) PATHOLOGY [facility] ? Department of Laboratory Medicine ?[address] [facility] ?[place] [address] ? , extension [phone] ? Pathology Report ? Surgical Pathology Report Name: HERON ORMANO ? Specimen #: [id number] Age: 4 1975 (Age: 47) ?Location: [facility] Sex: M ?Procedure Date: 12/02/2022 Hospital #: [id number] ?Date Received: 12/05/2022 Date Reported: 12/08/2022 Provider: OKSANA SZYMANSIK MD Source: A: Colon, sigmoid, polyps B: [...] applicable), interpretation and sign-out were performed at [facility], [address] [facility], [place], [place], [address]. FINAL DIAGNOSIS: A) COLON, SIGMOID POLYPS, BIOPSY: ? - HYPERPLASTIC POLYPS (MULTIPLE FRAGMENTS). B) COLON, RECTAL POLYP, BIOPSY: ? - HYPERPLASTIC POLYP. Electronically Signed Out ? Karen Marte MD [facility] TISSUE COLON STRUCTURE / Unknown 12/02/2022 10:10 AM CDT Tissue specimen (specimen) COLON STRUCTURE / Unknown 12/02/2022 10:14 AM CDT us Oksana Szymanski MD PATHOLOGY/CYTOLOGY ORDERABLE S Final Result [facility] [address] [place] [address], [id number] documented in this encounter Visit Diagnoses Diagnosis Screening for malignant neoplasm of colon- Primary Screening for malignant neoplasm of colon documented [...] 0843 (New Bag - Prov ider: Gladys Moctezuma, JNO)0933 (Continued by Anesthesia - Provider: Janine Nye CRNA)1016 (Anesthesia Volume Adjustment - Provider: Janine Nye CRNA)1041 (Infusion Stop Time - Provider: Britt Gonzales RN) documented in this encounter Additional Health Concerns Assessment Noted Time PHQ-9 Depression Total Score: 0 06/28/19 22 3:59 PM PIANO BUILDER documented as of this encounter Care Teams Account Development Manager Relationship Specialty Start Date End Date Joel Tanner MD [address] [facility] [address] [place] [address] PCP - General FAMILY PRACTICE 05/24/19 02/27/24 Senthil Fisher MD Three [facility]. [place] [place] [address] Deanne Shoulder Joiner CARDIOVASCULAR DISEASE 05/29/19 documented as of this encounter
--- OUTSIDE RECORDS SUMMARY | 2024-05-20 12:10 | XMS_ITS | Encounter Summary ---
Author Organization [facility] Address Critical access hospital6 [facility]. 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 [facility] [address] [place] [address] Deanne Doctor Podiatric Medicine CARDIOVASCULAR DISEASE 05/29/19 documented as of this encounter
--- OUTSIDE RECORDS SUMMARY | 2024-05-20 12:10 | XMS_ITS | Clinical Summary ---
Author Organization [facility] Address [facility]6 [facility]. [place], [place] [address] [place] [address] Care Team Providers Care Cylinder Valve Repairer Name Role Phone Senthil Fisher MD Unavailable [phone] Allergies No known active allergies Medications alfuzosin ER (UROXATRAL) 10 MG 24 hr tabletIndications:B enign prostatic hyperplasia with urinary obstruction Take 1 tablet (10 mg total) by mouth daily. 90 tablet 3 2 Active atorvastatin (LIPITOR) 20 MG tabletIndications:M ixed hyperlipidemia TAKE 1 TABLET(20 MG) BY MOUTH DAILY 30 tablet 4 Active lisinopril (PRINIVIL) 20 MG tabletIndications:H ypertension, unspecified type TAKE 1 TABLET(20 MG) BY MOUTH DAILY 7 tablet 4 Active Active Problems Problem Noted Date Diagnosed Date Screening for malignant neoplasm of colon 2022 Overview (09/26/2022): Added automatically from request for surgery [id number] Hypertension, essential, benign Chest pain Resolved Problems Problem Noted Date Diagnosed Date Resolved Date Encounter for screening for malignant neoplasm of colon 09/14/2022 09/19/2022 Immunizations Name Administration Dates Next Due Dtp 03/18/1983 Opv 03/18/1983 PFIZER COVID-19 (ORIGINAL FO RMULATION, PURPLE CAP) mRNA, LNP-S, PF, 30 MCG/0.3 ML DOSE 02/10/2021,01/20/2021 Family History Medical History Relation Comments Heart Attack Father Arthritis Maternal Grandmother Cancer Mother Lung Cancer Mother Relation Status Comments Father (Age 62) Maternal Grandmother Mother (Age 62) Social History Tobacco Use Types Packs/Day Years [...] file Not on file Not on file Last Filed Vital Signs Vital Sign Reading [...] Mass Index 29.29 11/23/2022 11:39 AM CDT Plan of Treatment Health Maintenance Due Date Last Done Comments Annual Physical 09/08/1979 DTaP, Tdap and Td Vaccines ( 1 - Tdap) 09/08/1995 03/18/1983 Hepatitis B Vaccines (1 of 3 - 19+ 3-dose series) 09/08/1995 COVID-19 Vaccine (2023-2 5 season) 2024 02/10/2021, 01/20/2021 Influenza Adult (#1) 2024 Colorectal Cancer Screening Colonoscopy (10 Years) 12/02/2032 12/02/2022, 12/02/2022 Hepatitis C Completed 06/03/2021, 03/29/2021 Meningococcal Vaccine Aged Out No mary douglas eligible based on patient's age to complete this topic Pneumococcal Vaccine: Pediatrics (0 to 5 Years) and At-Risk Patients (6 to 64 Years) Aged Out No longer eligible b ased on patient's age to complete this topic RSV Immunizations Under 20 Months Aged Out No longer eligible b ased on patient's age to complete this topic Procedures Procedure Name Priority Date/Time Associated Diagnosis Comments COLONOSCOPY Routine 12/02/2022 8:21 AM CDT HEPATITIS PANEL,ACUTE Routine 06/03/2021 7:42 AM NNP LFT elevation from Last 3 Months or Most Recently Relevant to Health Maintenance Results * HEPATITIS PANEL,ACUTE (06/03/2021 7:42 AM NNP) HEPATITIS B SURFACE AG NON-REACTI VE NON-REACTI VE 06/03/2021 3:42 PM NNP [facility] HEP B CORE IGM NON-REACTI VE NON-REACTI VE 06/03/2021 4:08 PM NNP [facility] HAV IGM NON-REACTI VE NON-REACTI VE 06/03/2021 4:07 PM NNP [facility] HEPATITIS C AB NON-REACTI VE NON-REACTI VE 06/03/2021 4:07 PM NNP [facility] 06/03/2021 7:42 AM NNP Joel Tanner MD LABORATORY Final Re sult [facility] [address] [place] [address], [place] [phone] from Last 3 Months or Most Recently Relevant to Health Maintenance Insurance [facility] Care Teams Cylinder Valve Repairer Relationship Specialty Start Date End Date Senthil Fishre MD Three [facility]. [place] [place] [address] Deanne Family Preservation Worker CARDIOVASCULAR DISEASE 05/29/19
--- OUTSIDE RECORDS SUMMARY | 2024-05-20 12:11 | XMS_ITS | Encounter Summary ---
Author Organization [facility] Address [facility]6 [facility]. [place], [place] [address] [place] [address] Care Team Providers Care Printing Machine Mechanic Name Role Phone Joel Tanner MD Primary Care Provider + Senthil Fisher MD Unavailable [phone] Reason for Visit * Reason Comments New Patient low testosterone * Consultation (Routine) - Closed Specialty Diagnoses / Procedures Referred By Contac t Referred To Contact UROLOGY Diagnoses Low testosterone Joel Tanner MD [address] [address] Phone: tel: fax: [facility] - [address], [address] [place] [address] Phone: tel: fax: Referral ID Status Reason Start Date Expiration Date Visits Re quested Visits Authorized [id number] Closed 06/20/2019 07/20/2020 100 100 Encounter Details Date Type Department Care Team (Late st Contact Info) Description 10/24/2019 8:20 AM CDT Office Visit [facility] [address] [place] [address] Franco Kahn MD [address] [place] [address] [address] [place] [id number] New Patient (low testosterone ) Social History Tobacco Use Types Packs/Day Years Used Date Smoking Tobacco: Former Cigarettes Q uit: 1998 Smokeless Tobacco: Never Alcohol Use Standard Drinks/Week Comments No 0 (1 standard drink = 0.6 oz pur e alcohol) AUDIT-C Answer Date Recorded Frequency of Alcohol Consumption 2-4 times a mon06/11/2019 Average Number of Drinks Not on file 020 Frequency of Binge Drinking Not on file 05/23 Sex and Gender Information Value Date Recorded Sex Assigned at Not on file Legal Sex Male 8:30 PM CDT Gender Identity Not on file Sexual Orientation Not on file Occupation Industry Job Start Date Job End Date Not on file Not on file Not on file Not on file COVID-19 Exposure Response Date Recorded In the last month, have you been in contact with someone who was confirmed or suspected to have Coronavirus / COVID-19? No / Unsure 10/24/2019 8:09 AM CDT documented as of this encounter Last Filed Vital Signs Vital Sign Reading Time Taken Comments Blood Pressure 130/86 10/24/2019 8:19 AM CDT Pulse - - Temperature - - Respiratory Rate - - Oxygen Saturation - - Inhaled Oxygen Concentration - - Weight 91.6 kg (202 lb) 10/24/2019 8:19 AM CDT Height 180.3 cm (5' 11 ) 10/24/2019 8:19 AM CDT Body Mass Index 28.17 10/24/2019 8:19 AM CDT documented in this encounter Progress Notes * Franco Kahn MD - 10/24/2019 8:20 AM CDT Chief Complaint: LUTS, low testosterone HPI: 44-year-old male presenting in consultation for evaluation for irritative and obstructive lower urinary tract symptoms as well as for low serum testosterone. He complains of a decreased force ofstream, with incomplete emptying and intermittency. He also complains of urinary frequency and occas ional urgency. He is able to sleep through the night. He has never taken any medications for his voiding symptoms. He denies dysuria or hematuria. He denies any history of UTI or STI. He does not have a history of instrumentation or trauma. He has been complaining of daytime fatigue, and serum testosterone was obtained which was in the low end of the normal range. He has normal sexual function. He recently was diagnosed with sleep apnea, and has begun using CPAP. He is active. Past Medical History: Diagnosis Date ??? Chest pain ??? Hypertension, essential, benign ??? Kidney stones x 2 ??? Sleep apnea Prior to Admission medications Medication Sig Start Date End Date Taking? Authorizing Provider lisinopril 20 MG tablet Take 1 tablet (20 mg total) by mouth daily. 07/30/19 Joel Tanner MD No Known Allergies Past Surgical History: Procedure Laterality Date ??? SHOULDER SURGERY Bilateral torn labrum ??? SINUS SURGERY Social History Tobacco Use ??? Smoking status: Former Smoker Types: Cigarettes Last attempt to quit: 1998 Years since quittin.4 ??? Smokeless tobacco: Never Used Substance Use Topics ??? Alcohol use: No Frequency: 2-4 times a month ??? Drug use: No Family History Problem Relation Name Age of Onset ??? Lung Cancer Mother ??? Heart Attack Father Review of Systems: As per HPI, otherwise negative on 14 points Objective: Physical Exam: Filed Vitals: 10/24/19 0819 BP: 130/86 Weight: 91.6 kg (202 lb) Height: 5' 11 (1.803 m) Physical Exam Constitutional: He is oriented to person, place, and time. He appears well- developed and well-nourished. HENT: Head: Normocephalic and atraumatic. Eyes: Conjunctivae and EOM are normal. Pulmonary/Chest: Effort normal. No respiratory distress. Genitourinary: Penis normal. Genitourinary Comments: Testes descended bilaterally, without masses or tenderness. Epididymis is normal bilaterally. Scrotum is normal. Musculoskeletal: Normal range of motion. He exhibits no edema. Neurological: He is alert and oriented to person, place, and time. Labs: TESTOSTERONE, TOTAL: 383 COLOR (U) YELLOW Final TRANSPARENCY CLEAR Final GLUCOSE (U) NEGATIVE NEGATIVE MG/DL Final BILIRUBIN (U) NEGATIVE NEGATIVE Final U KETONES NEGATIVE NEGATIVE MG/DL Final Specific [place] (U) 1.020 1.001 - 1.035 Final BLOOD NEGATIVE NEGATIVE Final U PH 7.0 5.0 - 9.0 Final PROTEIN (U) NEGATIVE NEGATIVE mg/dL Final UROBILINOGEN 0.2 0.2 - 1.0 EU/dL = mg/dL Final NITRITES NEGATIVE NEGATIVE MG/DL Final LEUKOCYTE ESTERASE NEGATIVE NEGATIVE Final Imaging: No results found. Assessment/Plan: 1. Obstructive and irritative lower urinary tract symptoms. Urinalysis is normal. I recommended cystoscopy for evaluation. We also discussed possible medical treatment options for BPH, but he would like to hold off until after the cystoscopy. 2. Low serum testosterone. I reassured him that the testosterone level is actually in the normal range. He is having normal sexual function. I explained that untreated sleep apnea will contribute to a low testosterone, and this may improve with treatment. I recommended against testosterone replacement therapy. We discussed natural measures for raising serum testosterone. FRANCO KAHN MD documented in this encounter Plan of Treatment Not on file documented as of this encounter Procedures Procedure Name Priority Date/Time Associated Diagnosis Comments URINALYSIS AUTO DIP Routine 10/24/2019 Low testosterone documented in this encounter Results * URINALYSIS AUTO DIP (10/24/2019) COLOR (U) YELLOW [address] ([address]), [place] TRANSPARENCY CLEAR [address] ([address]), [facility] GLUCOSE (U) NEGATIVE NEGATIVE MG/DL [address] ([address]), [facility] BILIRUBIN (U) NEGATIVE NEGATIVE [address] ([address]), [facility] KETONES MG/DL (U) NEGATIVE NEGATIVE MG/DL [address] ([address]), [facility] SPECIFIC GRAVITY (U) 1.020 1.001 - 1.[address] ([address]77), [facility] BLOOD (U) NEGATIVE NEGATIVE [address] (18288), [facility] U PH 7.0 5.0 - 9.[address] (71379), [facility] PROTEIN (U) NEGATIVE NEGATIVE mg/dL [address] (87[address]), [facility] UROBILINOGEN 0.2 0.2 - 1.0 EU/dL = mg/dL [facility] ([address]), [facility] NITRITES NEGATIVE NEGATIVE MG/DL [address] ([address]), [facility] LEUKOCYTES (U) NEGATIVE NEGATIVE [address] ([address]), [facility] URINE SPECIMEN OBTAINED BY CLEAN CATCH PROCEDURE / Unknown 10/24/2019 Franco Khan MD URINE ORDERABLES Final Result [address] ([address]), [facility] [address] [place] [address], documented in this encounter Visit Diagnoses Diagnosis Low testosterone- Primary Other testicular hypofunction Benign prostatic hyperplasia with urinary obstruction Urinary frequency documented in this encounter Care Teams Printing Machine Mechanic Relationship Specialty Start Date End Date Joel Tanner MD 9401 [facility] 112 [place] [address] PCP - General FAMILY PRACTICE 05/24/19 02/27/24 Senthil Fisher MD [facility]. [facility] [address] [place] [address] Ada Bakery Products Checker CARDIOVASCULAR DISEASE 05/29/19 documented as of this encounter
--- OUTSIDE RECORDS SUMMARY | 2024-05-20 12:11 | XMS_ITS | Encounter Summary ---
Author Organization [facility] Address [facility]6 [facility]. [place], [place] [address] [place] [address] Care Team Providers Care Patch Driller Name Role Phone Joel Tanner MD Primary Care Provider + Senthil Fisher MD Unavailable [phone] Encounter Details Date Type Department Care Team (Latest Contact Info) Description 10/24/2019 Travel Social History Tobacco Use Types Packs/Day [...] Diagnoses Not on filedocumented in this encounter Care Teams Patch Driller Relationship Specialty Start Date End Date Joel Tanner MD 9401 [email or web address] [address] [place] [address] PCP - General FAMILY PRACTICE 05/24/19 02/27/24 Senthil Fisher MD Three [facility] [place] [place] [address] Deanne Social Sciences Research Scientist CARDIOVASCULAR DISEASE 05/29/19 documented as of this encounter
--- OUTSIDE RECORDS SUMMARY | 2024-05-20 12:11 | XMS_ITS | Encounter Summary ---
Author Organization [facility] Address [facility]6 [facility]. [place], [place] [address] [place] [address] Care Team Providers Care Metal Drill Press Operator Name Role Phone Joel Tanner MD Primary Care Provider + Senthil Fisher MD Unavailable [phone] Reason for Visit * Reason Onset Date Comments Follow Up Call 10/29/2019 Encounter Details Date Type Department Care Team (Late st Contact Info) Description 10/29/2019 Telephone [facility] - [address], [address] [place] [address] Aaron Kahn MD [address] [place] [address] ANIL KRUGER [address] Follow Up Call Social History Tobacco Use Types Packs/Day Years [...] as of this encounter Progress Notes * Opal Swift MA - 10/29/2019 8:35 AM CDT LVM for patient to call me back. The current insurance we have on file is not up to date. I tried to get a PA for his upcoming procedure and I was told that the member is not on file documented in this encounter Plan of Treatment Not on file documented as of this encounter Visit Diagnoses Not on filedocumented in this encounter Care Teams Metal Drill Press Operator Relationship Specialty Start Date End Date Joel Tanner MD 9401 [facility] 112 [place] [address] PCP - General FAMILY PRACTICE 05/24/19 02/27/24 Senthil Fisher MD Three [facility]. [address] [place] [address] Deanne Passenger Tire Builder CARDIOVASCULAR DISEASE 05/29/19 documented as of this encounter
--- OUTSIDE RECORDS SUMMARY | 2024-05-20 12:11 | XMS_ITS | Encounter Summary ---
Author Organization [facility] Address Critical access hospital6 [facility]. [place], [place] [address] [place] [address] Care Team Providers Care Garnett Machine Operator Name Role Phone Joel Tanner MD Primary Care Provider + Senthil Fisher MD Unavailable [phone] Reason for Visit * Reason Onset Date Comments Results 03/19/2021 Orders 03/19/2021 Encounter Details Date Type Department Care Team (Late st Contact Info) Description 03/19/2021 Telephone [facility] [address] [place] [address] Joel Tanner MD [address] [facility] 112 [place] [address] Results; Orders Social History Tobacco Use Types Packs/Day Years [...] please move on to questions 3-9 0 02/15/2021 Sex and Gender Information Value Date Recorded [...] have Coronavirus / COVID-19? No / Unsure 03/19/2021 7:34 AM CDT documented as of this encounter Progress Notes * Silvia Robledo RN - 03/19/2021 12:01 PM CDT niiut message sent. Labs ordered. Unable to add labs on per Slim in Lab * Silvia Robledo RN - 03/19/2021 11:53 AM CDT ----- Message from Joel Tanner MD sent at 03/19/2021 11:45 AM CDT ----- Lipids very high and LFTs mildly elevated. Recommend check hepatitis panel and low fat diet. Testosterone still pending., documented in this encounter Plan of Treatment Not on file documented as of this encounter Results * HEPATITIS PANEL,ACUTE (03/29/2021 4:51 PM [facility] [employer]) HEPATITIS B SURFACE AG NON-REACTI VE NON-REACTI VE 03/30/2021 1:19 PM [facility] [employer] [employer] [facility] HEP B CORE IGM NON-REACTI VE NON-REACTI VE 03/30/2021 1:20 PM [employer] [facility] HAV IGM NON-REACTI VE NON-REACTI VE 03/30/2021 1:20 PM [facility] [employer] [facility] HEPATITIS C AB NON-REACTI VE NON-REACTI VE 03/30/2021 1:20 PM [employer] [facility] 03/29/2021 4:51 PM [employer] Joel Tanner MD LABORATORY Final Re sult [facility] [address] [place] [address], documented in this encounter Visit Diagnoses Diagnosis LFT elevation- Primary Other abnormal blood chemistry documented in this encounter Additional Health Concerns Assessment Noted Time PHQ-9 Depression Total Score: 0 02/16/20 21 5:23 PM CDT documented as of this encounter Care Teams Garnett Machine Operator Relationship Specialty Start Date End Date Joel Tanner MD 9401 [facility] 112 [place] [address] PCP - General FAMILY PRACTICE 05/24/19 02/27/24 S[facility]il [facility] [address] [place] [address] Deanne Clinical Support Manager CARDIOVASCULAR DISEASE 05/29/19 documented as of this encounter
--- OUTSIDE RECORDS SUMMARY | 2024-05-20 12:11 | XMS_ITS | Encounter Summary ---
Author Organization [facility] Address [facility]6 [facility]. [place], [place] [address] [place] [address] Care Team Providers Care Dust Collector Ore Crushing Name Role Phone Joel Tanner MD Primary Care Provider + Senthil Fisher MD Unavailable [phone] Encounter Details Date Type Department Care Team (Latest Contact Info) Description 02/15/2021 Travel Social History Tobacco Use Types Packs/Day [...] have Coronavirus / COVID-19? No / Unsure 02/15/2021 5:14 PM CDT documented as of this encounter Plan of Treatment Not on file documented as of this encounter Visit Diagnoses Not on filedocumented in this encounter Additional Health Concerns Assessment Noted Time PHQ-9 Depression Total Score: 0 02/16/20 21 5:23 PM CDT documented as of this encounter Care Teams Dust Collector Ore Crushing Relationship Specialty Start Date End Date Joel Tanner MD [address] [facility] 112 [place] [address] PCP - General FAMILY PRACTICE 05/24/19 02/27/24 Senthil Fisher MD [address] [facility] 1800 [facility] [place] [address] Deanne Inker CARDIOVASCULAR DISEASE 05/29/19 documented as of this encounter
--- OUTSIDE RECORDS SUMMARY | 2024-05-20 12:11 | XMS_ITS | Encounter Summary ---
Author Organization [facility] Address [facility]. [place], [place] [address] [place] [address] Care Team Providers Care Gizzard Puller Name Role Phone Joel Tanner MD Primary Care Provider + Senthil Fisher MD Unavailable [phone] Encounter Details Date Type Department Care Team (Late st Contact Info) Description 03/19/2021 [address]sp[address] [address] [facility] Provider results Social History Tobacco [...] documented as of this encounter Care Teams Gizzard Puller Relationship Specialty Start Date End Date Joel Tanner MD 9401 [facility] 112 [place] [address] PCP - General FAMILY PRACTICE 05/24/19 02/27/24 Senthil Fisher MD [facility]. [address] [place] [address] Deanne Hand Roller Engraver CARDIOVASCULAR DISEASE 05/29/19 documented as of this encounter
--- OUTSIDE RECORDS SUMMARY | 2024-05-20 12:11 | XMS_ITS | Encounter Summary ---
Author Organization [facility] Address [facility]. [place], [place] [address] [place] [address] Care Team Providers Care Court Crier Name Role Phone Joel Tanner MD Primary Care Provider + Senthil Fisehr MD Unavailable [phone] Encounter Details Date Type Department Care Team (Latest Contact Info) Description 06/28/2021 Travel Social History Tobacco Use Types Packs/Day Years Used Date Smoking Tobacco: Former Cigarettes Q uit: 1998 Smokeless Tobacco: Never Alcohol Use Standard Drinks/Week Comments Not Currently 0 (1 standard drink = 0.6 oz pur e alcohol) AUDIT-C Answer Date Recorded Frequency of Alcohol Consumption 2-4 times a mon06/11/2019 Average Number of Drinks Not on file 020 Frequency of Binge Drinking Not on file 05/23 PHQ-2 Answer Date Recorded PHQ-2 Score - If the patient scores above 3, please move on to questions 3-9 0 06/28/2021 Sex and Gender Information Value Date Recorded [...] suspected to have Coronavirus/COVID-19? No / Unsure 06/28/2021 3:40 PM INDUSTRIAL PRODUCTION MANAGER documented as of this encounter Plan of Treatment Not on file documented as of this encounter Visit Diagnoses Not on filedocumented in this encounter Additional Health Concerns Assessment Noted Time PHQ-9 Depression Total Score: 0 06/28/19 22 3:59 PM INDUSTRIAL PRODUCTION MANAGER documented as of this encounter Care Teams Court Crier Relationship Specialty Start Date End Date Joel Tanner MD 9401 [facility] 112 [place] [address] PCP - General FAMILY PRACTICE 05/24/19 02/27/24 Senthil Fisher MD Three [facility]. [facility] 1800 [place] [address] Deanne Junior Project Coordinator CARDIOVASCULAR DISEASE 05/29/19 documented as of this encounter
--- OUTSIDE RECORDS SUMMARY | 2024-05-20 12:11 | XMS_ITS | Encounter Summary ---
Author Organization [facility] Address [facility]6 [facility]. [place], [place] [address] [place] [address] Care Team Providers Care Biomedical Manager Name Role Phone Joel Tanner MD Primary Care Provider + Senthil Fisher MD Unavailable [phone] Reason for Visit * Reason Comments Procedure Cystoscopy Encounter Details Date Type Department Care Team (Latest Contact Info) Description 03/29/2021 3:00 PM SHELL SIEVE OPERATOR Office Visit [facility] - [address], [address] [place] [address] Franco Kahn MD [address] [place] [address] ANIL KRUGER [address] Procedure (Cystoscopy) Social History Tobacco Use Types Packs/Day Years Used Date Smoking Tobacco: Former Cigarettes Q uit: 1998 Smokeless Tobacco: Never Tobacco Cessation:Counseling Given: No Alcohol Use Standard Drinks/Week Comments Not Currently [...] please move on to questions 3-9 0 03/29/2021 Sex and Gender Information Value Date Recorded [...] have Coronavirus / COVID-19? No / Unsure 03/29/2021 2:32 PM SHELL SIEVE OPERATOR documented as of this encounter Last Filed Vital Signs Vital Sign Reading Time Taken Comments Blood Pressure 128/82 03/29/2021 3:18 PM SHELL SIEVE OPERATOR Pulse 89 03/29/2021 2:55 PM SHELL SIEVE OPERATOR Temperature 36.2 ??C (97.2 ??F) 03/29/2021 2:55 PM CS T Respiratory Rate - - Oxygen Saturation 96% 03/29/2021 2:55 PM SHELL SIEVE OPERATOR Room Air Inhaled Oxygen Concentration - - Weight - - Height 180.3 cm (5' 11 ) 03/29/2021 2:55 PM SHELL SIEVE OPERATOR Body Mass Index - - documented in this encounter Progress Notes * Franco Kahn MD - 03/29/2021 3:00 PM CST PRE-PROCEDURE DIAGNOSIS: BPH withobstruction POST-PROCEDURE DIAGNOSIS: BPH with obstruction, dysfunctional voiding SURGEON: FRANCO KAHN MD SPECIMEN: None. ANESTHESIA: Lidocaine jelly. PROCEDURE: Flexible Cystoscopy. INDICATIONS: Guzman Villagran is here for evaluation of obstructive LUTS Informed consent was obtained prior to the procedure, including but not limited to, the risk of bleeding, infection, injury to the surrounding tissue, and potential for repeat procedure and repeat surgery. OPERATIVE DESCRIPTION: Guzman was placed in the supine position. He was prepped and draped sterilely. A flexible cystourethroscope was lubricated and passed through his urethra and into his bladder. He had significant difficulty relaxing the sphincter. The prostate showed mild lateral lobe hyperplasia. There was no median lobe. The bladder was of normal capacity, mildly trabeculated. The urolithelium appeared healthy with no lesions, tumors or stones seen. The ureteral orifices were easily identified. There was no bloody efflux appreciated from either ureteral orifice. I retroflexed the scope and looked at the bladder outlet and saw no abnormal lesions. I removed the cystoscope. The patient t olerated the procedure well. COMPLICATIONS: None apparent. Assessment plan: 45-year-old male with primarily obstructive lower urinary tract symptoms. I would like to try him on a course of uroxatral, so a prescription was placed. He was counseled about appropriate use the medication about potential side effects. He also likely has a component of dysfunctional voiding and would benefit from Kegel exercises. We did also discuss pelvic floor physical therapy. F/U 3 months FRANCO KAHN MD L SIEVE OPERATOR documented in this encounter Plan of Treatment Scheduled Orders Name Type Priority Associated Diagnoses Orde r Schedule CYSTOURETHROSCOPY Procedures Routine Benign prostatic hyperplasia with urinary obstruction Ordered: 03/29/2021 documented as of this encounter Procedures Procedure Name Priority Date/Time Associated Diagnosis Comments URINALYSIS AUTO DIP Routine 03/29/2021 Low testosterone documented in this encounter Results * URINALYSIS AUTO DIP (03/29/2021) COLOR (U) YELLOW [facility] (3), [facility] TRANSPARENCY CLEAR [facility] (3), [facility] GLUCOSE (U) NEGATIVE NEGATIVE MG/DL [facility] (3), [place] BILIRUBIN (U) NEGATIVE NEGATIVE [facility] (3), [facility] KETONES MG/DL (U) NEGATIVE NEGATIVE MG/DL [facility] (3), [facility] SPECIFIC GRAVITY (U) 1.025 1.001 - 1.035 [facility] (3), [place] BLOOD (U) NEGATIVE NEGATIVE [facility] (3), [facility] U PH 7.0 5.0 - 9.0 [facility] (3), [facility] PROTEIN (U) NEGATIVE NEGATIVE mg/dL [facility] (3), [facility] UROBILINOGEN 0.2 0.2 - 1.0 EU/dL = mg/dL [facility] (3), [place] NITRITES NEGATIVE NEGATIVE MG/DL [facility] (3), [facility] LEUKOCYTES (U) NEGATIVE NEGATIVE [facility] ([facility]), [facility] URINE SPECIMEN OBTAINED BY CLEAN CATCH PROCEDURE / Unknown 03/29/2021 us Franco Kahn MD URINE ORDERABLES Final Result [facility] [address] (3), [place] [address] [facility] [address] [place] [address], documented in this encounter Visit Diagnoses Diagnosis Low testosterone- Primary Other testicular hypofunction Benign prostatic hyperplasia with urinary obstruction documented in this encounter Administered Medications Inactive Administered Medications - up to 3 most recent administrations Medication Order MAR Action Action Date Dose Rate Site ciprofloxacin (CIPRO) tablet 500 mg 500 mg, Oral, Once, 1 dose, On 03/29/21 at 1515, Do not administer within 4 hours of antacids.Indications:Low testosterone,Benign prostatic hyperplasia with urinary obstruction Given 03/29/2021 2:59 PM SHELL SIEVE OPERATOR 500 mg documented in this encounter Additional Health Concerns Assessment Noted Time PHQ-9 Depression Total Score: 0 03/29/20 21 2:54 PM SHELL SIEVE OPERATOR documented as of this encounter Care Teams Biomedical Manager Relationship Specialty Start Date End Date Joel Tanner MD [address] [place] [phone] PCP - General FAMILY PRACTICE 05/24/19 02/27/24 Senthil Fisher MD [address] [place] [address] Irons Lifter/Driver CARDIOVASCULAR DISEASE 05/29/19 documented as of this encounter
--- OUTSIDE RECORDS SUMMARY | 2024-05-20 12:11 | XMS_ITS | Encounter Summary ---
Author Organization [facility] Address [facility] to [facility]6 [facility] [place] [address] [place] [address] Care Team Providers Care Take Up Operator Name Role Phone Joel Tanner MD Primary Care Provider + Senthil Fisher MD Unavailable [phone] Encounter Details Date Type Department Care Team (Latest Contact Info) Description 06/03/2021 7:31 AM DITTO MACHINE OPERATOR - 06/03/2021 11:59 PM [facility] Hospital Encounter [facility] [address] [place] [address] Joel Tanner MD [address] [facility] 112 [place] [address] Discharge Disposition: Home or Self [...] have Coronavirus / COVID-19? No / Unsure 06/03/2021 7:30 AM DITTO MACHINE OPERATOR documented as of this encounter Medications at Time of Discharge alfuzosin ER 10 MG 24 hr tabletIndications: Benign prostatic hyperplasia with urinary obstruction Take 1 tablet (10 mg total) by mouth daily. 30 tablet 3 03/29/2021 07/19/2021 lisinopril 20 MG tabletIndications: Hypertension, unspecified type Take 1 tablet (20 mg total) by mouth daily. 90 tablet 2 05/13/2021 02/01/2022 documented as of this encounter Plan of Treatment Not on file documented as of this encounter Procedures Procedure Name Priority Date/Time Associated Diagnosis Comments HEPATITIS PANEL,ACUTE Routine 06/03/2021 7:42 AM DITTO MACHINE OPERATOR LFT elevation documented in this encounter Results * HEPATITIS PANEL,ACUTE (06/03/2021 7:42 AM DITTO MACHINE OPERATOR) HEPATITIS B SURFACE AG NON-REACTI VE NON-REACTI VE 06/03/2021 3:42 PM DITTO MACHINE OPERATOR [facility] HEP B CORE IGM NON-REACTI VE NON-REACTI VE 06/03/2021 4:08 PM DITTO MACHINE OPERATOR [facility] HAV IGM NON-REACTI VE NON-REACTI VE 06/03/2021 4:07 PM DITTO MACHINE OPERATOR [facility] HEPATITIS C AB NON-REACTI VE NON-REACTI VE 06/03/2021 4:07 PM DITTO MACHINE OPERATOR [facility] 06/03/2021 7:42 AM DITTO MACHINE OPERATOR Joel Tanner MD LABORATORY Final Re sult [facility] [address] [facility] [address], documented in this encounter Visit Diagnoses Diagnosis LFT elevation Other abnormal blood chemistry documented in this encounter Additional Health Concerns Assessment Noted Time PHQ-9 Depression Total Score: 0 03/29/20 21 2:54 PM DITTO MACHINE OPERATOR documented as of this encounter Care Teams Take Up Operator Relationship Specialty Start Date End Date Joel Tanner MD [address]01 [facility] 112 [place] [address] PCP - General FAMILY PRACTICE 05/24/19 02/27/24 Senthil Fisher MD [address] [place] [address] Deanne Patents Examiner CARDIOVASCULAR DISEASE 05/29/19 documented as of this encounter
--- OUTSIDE RECORDS SUMMARY | 2024-05-20 12:11 | XMS_ITS | Encounter Summary ---
Author Organization [facility] Address [facility]. [place], [place] [address] [place] [address] Care Team Providers Care Supervisor Sewer Maintenance Name Role Phone Joel Tanner MD Primary Care Provider + Senthil Fisher MD Unavailable [phone] Encounter Details Date Type Department Care Team (Latest Contact Info) Description 10/24/2019 Scan HEALTH INFO SRVCS Scanned, Documents Social History Tobacco Use Types Packs/Day Years [...] on filedocumented in this encounter Care Teams Supervisor Sewer Maintenance Relationship Specialty Start Date End Date Joel Tanner MD [address] [facility] 112 [place] [address] PCP - General FAMILY PRACTICE 05/24/19 02/27/24 Senthil Fisher MD Three [facility]. [facility] 1800 [place] [address] Deanne Retail Marketing Manager CARDIOVASCULAR DISEASE 05/29/19 documented as of this encounter
--- OUTSIDE RECORDS SUMMARY | 2024-05-20 12:11 | XMS_ITS | Encounter Summary ---
Author Organization [facility] Address [facility]6 [place] [address] [place] [address] Care Team Providers Care Felt Checker Name Role Phone Joel Tanner MD Primary Care Provider + Senthil Fisher MD Unavailable [phone] Encounter Details Date Type Department Care Team (Latest Contact Info) Description 03/19/2021 7:34 AM CDT - 03/19/2021 11:59 PM T Hospital Encounter [facility] [address] [place], [place] [address] Joel Tanner MD [address] [place] [address] Discharge Disposition: Home or Self [...] this encounter Medications at Time of Discharge lisinopril 20 MG tabletIndications: Hypertension, unspecified type Take 1 tablet (20 mg total) by mouth daily. 90 tablet 02/15/2021 05/13/2021 documented as of this encounter Plan of Treatment Not on file documented as of this encounter Procedures Procedure Name Priority Date/Time Associated Diagnosis Comments COMPREHENSIVE METABOLIC PANEL Routine 03/19/2021 7:44 AM CDT Hypertension, unspecified type LIPID PANEL Routine 03/19/2021 7:44 AM CDT Hypertension, unspecified type TESTOSTERONE, TOTAL Routine 03/19/2021 7 :44 AM CDT Decreased urine stream documented in this encounter Results * TESTOSTERONE, TOTAL (03/19/2021 7:44 AM CDT) TESTOSTERONE TOTAL 288 250 - 1,100 ng/dL 03/24/2021 2:36 PM CDT [employer] [place] Comment: For additional information, please refer to http://education.[employer]/faq/ ZbcnsJcndrduikanzSSQTEWCFQ221 (This link is being provided for informational/ educational purposes only.) This test was developed and its analytical performance characteristics have been determined by [facility] [place]. It has not been cleared or approved by the U.S. Food and Drug Administration. This assay has been validated pursuant to the CLIA regulations and is used for clinical purposes. Test Performed by Bart Kam, [facility], [address] [place] [address] Darnell Bello M.D., Ph.D., Director of Laboratories , [facility] [id number] 03/19/2021 7:44 AM CDT Joel Tanner MD LABORATORY Final Re sult [employer] [facility] [address] [place], [place] , * (ABNORMAL) COMPREHENSIVE METABOLIC PANEL (03/19/2021 7:44 AM CDT) GLUCOSE 119(H) 70 - 99 MG/DL 03/19/2021 8:34 AM CDT [facility] BUN 19(H) 7 - 18 MG/DL 03/19/2021 8:34 AM CDT [facility] CREATININE S/P/B 1.10 0.7 - 1.3 MG/DL 03/19/2021 8:34 AM CDT [facility] SODIUM S/P/B 140 136 - 145 MMOL/L 03/19/2021 8:34 AM CDT [facility] POTASSIUM S/P/B 4.3 3.5 - 5.1 MMOL/L 03/19/2021 8:34 AM CDT [facility] CHLORIDE S/P/B 104 100 - 108 MMOL/L 03/19/2021 8:34 AM CDT [facility] CO2 27.9 21 - 32 MMOL/L 03/19/2021 8:34 AM CDT [facility] CALCIUM S/P/B 8.6 8.5 - 10.1 MG/DL 03/19/2021 8:34 AM CDT [facility] BILIRUBIN TOTAL S/P/B 0.9 0.2 - 1.2 MG/DL 03/19/2021 8:34 AM [facility] Comment: THIS ASSAY IS NOT RECOMMENDED FOR PATIENTS UNDERGOING TREATMENT WITH ELTROMBOPAG DUE TO THE POTENTIAL FOR FALSELY ELEVATED RESULTS. TOTAL PROTEIN S/P/B 7.1 6.4 - 8.2 G/DL 03/19/2021 8:34 AM [facility] ALBUMIN S/P/B 3.9 3.4 - 5.0 G/DL 03/19/2021 8:34 AM [facility] AST 49(H) 15 - 37 U/L 03/19/2021 8:34 AM [facility] ALT 126(H) 16 - 60 U/L 03/19/2021 8:34 AM [facility] ALKALINE PHOSPHATASE S/P/B 69 50 - 136 U/L 03/19/2021 8:34 AM [facility] ANION GAP 8.1 5 - 15 MMOL/L 03/19/2021 8:34 AM [facility] BUN CREATININE RATIO 17.3 6 - 26 03/19/2021 8:34 AM [facility] A/G RATIO 1.2 1.0 - 2.0 RATIO 03/19/2021 8:34 AM [facility] EGFR NON-AFR. AMER. 81(L) >90 ML/MIN/1.7 3 M2 03/19/2021 8:34 AM [facility] EGFR AFR. AMER. >90 >90 ML/MIN/1.7 3 M2 03/19/2021 8:34 AM [facility] Comment: NOTE: eGFR is not calculated for patients <18 years of age. This is an estimated GFR (CKD EPI) and should not be used for calculating drug doses. 03/19/2021 7:44 AM CDT us Joel Tanner MD LABORATORY Final Re sult [facility] [address] [place] [address], * (ABNORMAL) LIPID PANEL (03/19/2021 7:44 AM CDT) CHOLESTEROL 276(H) <200 MG/DL 03/19/2021 8:34 AM CDT [facility] TRIGLYCERIDES 87 <150 MG/DL 03/19/2021 8:34 AM CDT [facility] HDL 44 >40.0 MG/DL 03/19/2021 8:34 AM CDT [facility] LDL (CALCULATED) 215(H) <100 MG/DL 03/19/2021 8:34 AM CDT [facility] NON HDL CHOLESTEROL 232(H) <130 MG/DL 03/19/2021 8:34 AM CDT [facility] Comment: NOTE: WHEN THE TRIGLYCERIDES ARE >200 mg/dL, NON HDL C IS A SECONDARY TARGET OF THERAPY, WITH A GOAL 30 mg/dL HIGHER THAN THE IDENTIFIED LDL C GOAL. CHOL/HDL RATIO 6.3(H) 0.0 - 4.5 03/19/2021 8:34 AM CDT [facility] VLDL CALCULATION 17 5 - 55 MG/DL 03/19/2021 8:34 AM T [facility] LIPID INTERPRETATION 03/19/2021 8:34 AM T [facility] Comment: NIH CONCENSUS REPORT RECOMMENDATIONS: ?ADULT ?CHILD ??LOW RISK: ?CHOLESTEROL ? <200 ? <170 ?TRIGLYCERIDE ?<150 ?--- ?HDL ? >=60 ?--- ?LDL ? <100 ? <110 ??BORDERLINE: ?CHOLESTEROL ? 200-239 ?? 170-199 ?TRIGLYCERIDE ?150-199 ? --- ?HDL ?40-59 ?--- ?LDL ? 100-159 ?? 110-129 ??HIGH RISK: ?CHOLESTEROL ? >=240 ?>=200 ?TRIGLYCERIDE ?>=200 ? --- ?HDL ?<40 ?--- ?LDL ? >=160 ?>=130 03/19/2021 7:44 AM CDT us Joel Tanner MD LABORATORY Final Re sult Performing Organization Address City/State/[facility] Co de Phone Number [facility] [address] [place] [address], documented in this encounter Visit Diagnoses Diagnosis Hypertension, unspecified type Decreased urine stream Slowing of urinary stream documented in this encounter Additional Health Concerns Assessment Noted Time PHQ-9 Depression Total Score: 0 02/16/20 21 5:23 PM CDT documented as of this encounter Care Teams Felt Checker Relationship Specialty Start Date End Date Joel Tanner MD 9401 [facility] 112 [place] [phone] PCP - General FAMILY PRACTICE 05/24/19 02/27/24 Senthil Fisher MD Three [facility]. [facility] [[email or web address] [address] [place] [address] Deanne Inspector Toys CARDIOVASCULAR DISEASE 05/29/19 documented as of this encounter
--- OUTSIDE RECORDS SUMMARY | 2024-05-20 12:11 | XMS_ITS | Encounter Summary ---
Author Organization [facility] Address [facility]. [place], [place] [address] [place] [address] Care Team Providers Care Mold Chipper Name Role Phone Joel Tanner MD Primary Care Provider + Senthil Fisher MD Unavailable [phone] Encounter Details Date Type Department Care Team (Latest Contact Info) Description 03/19/2021 Travel Social History Tobacco Use Types Packs/Day [...] documented as of this encounter Care Teams Mold Chipper Relationship Specialty Start Date End Date Joel Tanner MD 9401 [facility] 112 [place] [address] PCP - General FAMILY PRACTICE 05/24/19 02/27/24 Senthil Fisher MD Three [facility]. [facility] 1800 [facility] [place] [address] Deanne Reticle Printer CARDIOVASCULAR DISEASE 05/29/19 documented as of this encounter
--- OUTSIDE RECORDS SUMMARY | 2024-05-20 12:11 | XMS_ITS | Encounter Summary ---
Author Organization [facility] Address Critical access hospital6 [facility] [place] [address] [place] [address] Care Team Providers Care Plant And Machinery Valuer Name Role Phone Joel Tanner MD Primary Care Provider + Senthil Fisher MD Unavailable [phone] Encounter Details Date Type Department Care Team (Late st Contact Info) Description 06/25/2019 Orders Only [place] [address] [place], [place] [id number] Senthil Fisher MD [facility]. [address] [address] Social History Tobacco Use Types Packs/Day Years [...] on filedocumented in this encounter Care Teams Plant And Machinery Valuer Relationship Specialty Start Date End Date Joel Tanner MD 9401 [facility] 112 [place] [address] PCP - General FAMILY PRACTICE 05/24/19 02/27/24 Senthil Fisher MD [facility]. [facility] 1800 [place] [address] Deanne Plant Operations Engineer CARDIOVASCULAR DISEASE 05/29/19 documented as of this encounter
--- OUTSIDE RECORDS SUMMARY | 2024-05-20 12:11 | XMS_ITS | Encounter Summary ---
Author Organization [facility] Address [facility]. [place], [place] [address] [place] [address] Care Team Providers Care Motor Vehicle Light Assembler Name Role Phone Joel Tanner MD Primary Care Provider + Senthil Fisher MD Unavailable [phone] Encounter Details Date Type Department Care Team (Latest Contact Info) Description 03/29/2021 Travel Social History Tobacco Use Types Packs/Day [...] COVID-19? No / Unsure 03/29/2021 2:32 PM BUTCHER HELPER documented as of this encounter Plan of Treatment Not on file documented as of this encounter Visit Diagnoses Not on filedocumented in this encounter Additional Health Concerns Assessment Noted Time PHQ-9 Depression Total Score: 0 03/29/20 21 2:54 PM BUTCHER HELPER documented as of this encounter Care Teams Motor Vehicle Light Assembler Relationship Specialty Start Date End Date Joel Tanner MD [address] [facility] [address] [place] [address] PCP - General FAMILY PRACTICE 05/24/19 02/27/24 Senthil Fisher MD Three [facility]. [facility] [address] [place] [address] Deanne Services Coordinator CARDIOVASCULAR DISEASE 05/29/19 documented as of this encounter
--- OUTSIDE RECORDS SUMMARY | 2024-05-20 12:11 | XMS_ITS | Encounter Summary ---
Author Organization [facility] Address [facility]6 [facility]. [place], [place] [address] [place] [address] Care Team Providers Care Case Preparer And Liner Name Role Phone Joel Tanner MD Primary Care Provider + Senthil Fisher MD Unavailable [phone] Encounter Details Date Type Department Care Team (Latest Contact Info) Description 06/03/2021 Travel Social History Tobacco Use Types Packs/Day [...] COVID-19? No / Unsure 06/03/2021 7:30 AM PRESCHOOL TEACHER documented as of this encounter Plan of Treatment Not on file documented as of this encounter Visit Diagnoses Not on filedocumented in this encounter Additional Health Concerns Assessment Noted Time PHQ-9 Depression Total Score: 0 03/29/20 21 2:54 PM PRESCHOOL TEACHER documented as of this encounter Care Teams Case Preparer And Liner Relationship Specialty Start Date End Date Joel Tanner MD [address]01 [facility] 112 [place] [address] PCP - General FAMILY PRACTICE 05/24/19 02/27/24 Senthil Fisher MD Three [facility]. [facility] 1800 [facility] [place] [address] Deanne Cafeteria Clerk CARDIOVASCULAR DISEASE 05/29/19 documented as of this encounter
--- OUTSIDE RECORDS SUMMARY | 2024-05-20 12:11 | XMS_ITS | Encounter Summary ---
Author Organization [facility] Address [address] [facility]. [place], [place] [address] [place] [address] Care Team Providers Care Soft Work Cigar Machine Operator Name Role Phone Joel aTnner MD Primary Care Provider + Senthil Fisher MD Unavailable [phone] Reason for Visit * Reason Comments Low Testosterone 3mo f/u * Consultation/Treatment (Routine) - Closed Specialty Diagnoses / Procedures Referred By Contac t Referred To Contact UROLOGY Diagnoses Decreased urine stream Joel Tanner MD [address] [address] Phone: tel: fax: Franco Kahn MD Phone: tel: fax: Referral ID Status Reason Start Date Expiration Date Visits Re quested Visits Authorized [id number] Closed 02/16/2021 03/20/2022 100 100 Encounter Details Date Type Department Care Team (Latest Contact Info) Description 06/28/2021 3:40 PM PERSONAL CARE SERVICE PROVIDER Office Visit [facility] Multispecialty Care - [address], [address] [place] [address] Franco Kahn MD [address] [facility] [place] [place] [id number] Low Testosterone (3mo f/u) Social History Tobacco Use Types Packs/Day Years [...] Coronavirus/COVID-19? No / Unsure 06/28/2021 3:40 PM PERSONAL CARE SERVICE PROVIDER documented as of this encounter Last Filed Vital Signs Vital Sign Reading Time Taken Comments Blood Pressure 149/75 06/28/2021 4:00 PM PERSONAL CARE SERVICE PROVIDER Pulse 67 06/28/2021 4:00 PM PERSONAL CARE SERVICE PROVIDER Temperature 36.2 ??C (97.2 ??F) 06/28/2021 4:00 PM CS T Respiratory Rate - - Oxygen Saturation 97% 06/28/2021 4:00 PM PERSONAL CARE SERVICE PROVIDER Inhaled Oxygen Concentration - - Weight 99.3 kg (219 lb) 06/28/2021 4:00 PM PERSONAL CARE SERVICE PROVIDER Height 180.3 cm (5' 11 ) 06/28/2021 4:00 PM PERSONAL CARE SERVICE PROVIDER Body Mass Index 30.54 06/28/2021 4:00 PM PERSONAL CARE SERVICE PROVIDER documented in this encounter Progress Notes * Franco Kahn MD - 06/28/2021 3:40 PM CST HPI: 45-year-old male presenting for follow up for irritative and obstructive lower urinary tract symptoms as well as for low serum testosterone. He complains of a decreased force of stream, with incomplete emptying and intermittency. He also complains of urinary frequency and occasional urgency. Cystoscopy showed mild lateral lobe hyperplasia and a mildly trabeculated bladder. He appeared to have difficulty relaxing his sphincter. He was started on alfuzosin at his last visit, and has had someimprovement in his voiding symptoms, although they seem to wax and wane. He is able to sleep through the night. He has never taken any medications for his voiding symptoms. He denies dysuria or hematuria. He denies any history of UTI or STI. He does not have a history of instrumentation or trauma. At his last visit, he had complained of daytime fatigue, and serum testosterone was obtained which was in the low end of the normal range. He has normal sexual function. He was diagnosed with sleepapnea, and has begun using CPAP. He is feeling much better, and no longer complains of daytime fatigue. Past Medical History: Diagnosis Date ??? Chest pain ??? Hypertension, essential, benign ??? Kidney stones x 2 ??? Sleep apnea Prior to Admission medications Medication Sig Start Date End Date Taking? Authorizing Provider alfuzosin ER 10 MG 24 hr tablet Take 1 tablet (10 mg total) by mouth daily. 03/29/21 Yes Franco Kahn MD lisinopril 20 MG tablet Take 1 tablet (20 mg total) by mouth daily. 05/13/21 Yes Joel Tanner MD No Known Allergies Past Surgical History: Procedure Laterality Date ??? SHOULDER SURGERY Bilateral torn labrum ??? SINUS SURGERY Social History Tobacco Use ??? Smoking status: Former Smoker Types: Cigarettes Quit date: 1998 Years since quittin. ??? Smokeless tobacco: Never Used Vaping Use ??? Vaping Use: Never used Substance Use Topics ??? Alcohol use: Not Currently ??? Drug use: No Family History Problem Relation Name Age of Onset ??? Lung Cancer Mother ??? Heart Attack Father Review of Systems: As per HPI, otherwise negative on 14 points Objective: Physical Exam: Filed Vitals: 06/28/21 1600 BP: (!) 149/75 Pulse: 67 Temp: 97.2 ??F (36.2 ??C) SpO2: 97% Weight: 99.3 kg (219 lb) Height: 5' 11 (1.803 m) Physical Exam Constitutional: General: He is not in acute distress. Appearance: Normal appearance. He is not ill-appearing. HENT: Head: Normocephalic and atraumatic. Nose: Nose normal. Mouth/Throat: Mouth: Mucous membranes are moist. Pharynx: Oropharynx is clear. Eyes: Extraocular Movements: Extraocular movements intact. Conjunctiva/sclera: Conjunctivae normal. Cardiovascular: Rate and Rhythm: Normal rate. Pulmonary: Effort: Pulmonary effort is normal. No respiratory distress. Abdominal: General: There is no distension. Palpations: Abdomen is soft. Tenderness: There is no abdominal tenderness. Musculoskeletal: General: Normal range of motion. Cervical back: Normal range of motion. Skin: General: Skin is warm and dry. Coloration: Skin is not jaundiced or pale. Neurological: General: No focal deficit present. Mental Status: He is alert and oriented to person, place, and time. Cranial Nerves: No cranial nerve deficit. Sensory: No sensory deficit. Motor: No weakness. Coordination: Coordination normal. Psychiatric: Mood and Affect: Mood normal. Behavior: Behavior normal. Labs: COLOR (U) YELLOW TRANSPARENCY CLEAR GLUCOSE (U) NEGATIVE MG/DL NEGATIVE BILIRUBIN (U) NEGATIVE NEGATIVE U KETONES NEGATIVE MG/DL NEGATIVE Specific [place] (U) 1.001 - 1.035 1.025 BLOOD NEGATIVE NEGATIVE U PH 5.0 - 9.0 7.0 PROTEIN (U) NEGATIVE mg/dL NEGATIVE UROBILINOGEN 0.2 - 1.0 EU/dL = mg/dL 0.2 NITRITES NEGATIVE MG/DL NEGATIVE LEUKOCYTE ESTERASE NEGATIVE NEGATIVE Imaging: No results found. Assessment/Plan: 45-year-old male with primarily obstructive lower urinary tract symptoms. I would like him to continue uroxatral.. He was counseled about appropriate use the medication about potential side effects. He also likely has a component of dysfunctional voiding and would benefit from continuing to work on Kegel exercises. We did also discuss pelvic floor physical therapy. F/U 6 months FRANCO KAHN MD ONAL CARE SERVICE PROVIDER documented in this encounter Plan of Treatment Not on file documented as of this encounter Visit Diagnoses Diagnosis Dysfunctional voiding of urine- Primary Unspecified disorder of urethra and urinary tract documented in this encounter Additional Health Concerns Assessment Noted Time PHQ-9 Depression Total Score: 0 06/28/19 22 3:59 PM PERSONAL CARE SERVICE PROVIDER documented as of this encounter Care Teams Soft Work Cigar Machine Operator Relationship Specialty Start Date End Date Joel Tanner MD [address] [facility] 112 [place] [address] PCP - General FAMILY PRACTICE 05/24/19 02/27/24 Senthil Fisher MD Three [facility]. [facility] [address] [place] [address] Deanne Corporate Travel Agent CARDIOVASCULAR DISEASE 05/29/19 documented as of this encounter
--- OUTSIDE RECORDS SUMMARY | 2024-05-20 12:11 | XMS_ITS | Encounter Summary ---
Author Organization [facility] Address [address] [facility]. [place], [place] [address] [place] [address] Care Team Providers Care Big Data Hadoop Developer Name Role Phone Joel Tanner MD Primary Care Provider + Senthil Fisher MD Unavailable [phone] Reason for Visit * Reason Comments Follow Up Low testosterone * Consultation/Treatment (Routine) - Closed Specialty Diagnoses / Procedures Referred By Contac t Referred To Contact UROLOGY Diagnoses Decreased urine stream Joel Tanner MD [address] [address] Phone: tel: fax: Franco Kahn MD Phone: tel: fax: Referral ID Status Reason Start Date Expiration Date Visits Re quested Visits Authorized [id number] Closed 02/16/2021 03/20/2022 100 100 Encounter Details Date Type Department Care Team (Latest Contact Info) Description 12/29/2021 3:00 PM CDT Office Visit [facility] Multispecialty Care - [facility] [address] [facility], [address] [place] [address] Franco Kahn MD [address] [facility] [place] [address] Follow Up (Low testosterone) Social History Tobacco Use Types Packs/Day Years Used Date Smoking Tobacco: Former Cigarettes Q uit: 1999 Smokeless Tobacco: Never Alcohol Use Standard Drinks/Week [...] please move on to questions 3-9 0 12/29/2021 Sex and Gender Information Value Date Recorded [...] suspected to have Coronavirus/COVID-19? No / Unsure 12/29/2021 2:47 PM CDT documented as of this encounter Last Filed Vital Signs Vital Sign Reading Time Taken Comments Blood Pressure 118/64 12/29/2021 3:05 PM CDT Pulse 80 12/29/2021 3:05 PM CDT Temperature 36.5 ??C (97.7 ??F) 12/29/2021 3:05 PM CD T Respiratory Rate 18 12/29/2021 3:05 PM CDT Oxygen Saturation 97% 12/29/2021 3:05 PM CDT Inhaled Oxygen Concentration - - Weight 104.3 kg (230 lb) 12/29/2021 3:05 PM CDT Height 180.3 cm (5' 11 ) 12/29/2021 3:05 PM CDT Body Mass Index 32.08 12/29/2021 3:05 PM CDT documented in this encounter Progress Notes * Franco Kahn MD - 12/29/2021 3:00 PM CDT HPI: 46-year-old male presenting for follow up for irritative [...] has had someimprovement in his voiding symptoms, he ran out of the medication. He is able to sleep through the night. He denies dysuria or hematuria. He denies any history of UTI or STI. He does not have a history of instrumentation or trauma. Serum testosterone was obtained which was in the low end of the normal range. He has normal sexual function. He was diagnosed with sleep apnea, and has [...] mouth daily. 05/13/21 Yes Joel Tanner MD ALFUZOSIN ER 10 MG 24 hr tablet TAKE 1 TABLET(10 MG) BY MOUTH DAILY 07/19/21 Franco Kahn MD No Known Allergies Past Surgical History: Procedure Laterality Date ??? SHOULDER SURGERY Bilateral torn labrum ??? SINUS SURGERY Social History Tobacco Use ??? Smoking status: Former Smoker Types: Cigarettes Quit date: 1998 Years since quittin.6 ??? Smokeless tobacco: Never Used Vaping Use ??? Vaping Use: Never used Substance Use Topics ??? Alcohol use: Yes Comment: seldom ??? Drug use: Not Currently Types: Marijuana Family History Problem Relation Name Age of Onset ??? Lung Cancer Mother ??? Heart Attack Father Review of Systems: As per HPI, otherwise negative on 14 points Objective: Physical Exam: Filed Vitals: 12/29/21 1505 BP: 118/64 Pulse: 80 Resp: 18 Temp: 97.7 ??F (36.5 ??C) TempSrc: Temporal SpO2: 97% Weight: 104.3 kg (230 lb) Height: 5' 11 (1.803 m) Physical [...] NEGATIVE U KETONES NEGATIVE MG/DL NEGATIVE Specific [place] (U) 1.001 - 1.035 1.025 BLOOD NEGATIVE NEGATIVE U PH 5.0 - 9.0 7.0 PROTEIN (U) NEGATIVE mg/dL NEGATIVE UROBILINOGEN 0.2 - 1.0 EU/dL = mg/dL 0.2 NITRITES NEGATIVE MG/DL NEGATIVE LEUKOCYTE ESTERASE NEGATIVE NEGATIVE Imaging: No results found. Assessment/Plan: 46-year-old male with primarily obstructive lower urinary tract symptoms. I would like him to resume uroxatral. He was counseled about appropriate use the medication about potential side effects. He also likely has a component of dysfunctional voiding and would benefit from continuing to work on Kegel exercises. We did also discuss pelvic floor physical therapy. F/U one year FRANCO KAHN MD documented in this encounter Plan of Treatment Not on file documented as of this encounter Visit Diagnoses Diagnosis Dysfunctional voiding of urine- Primary Unspecified disorder of urethra and urinary tract Benign prostatic hyperplasia with urinary obstruction documented in this encounter Additional Health Concerns Assessment Noted Time PHQ-9 Depression Total Score: 0 06/28/19 22 3:59 PM NICU RN documented as of this encounter Care Teams Big Data Hadoop Developer Relationship Specialty Start Date End Date Joel Tanner MD [address] [facility] 112 [place] [address] PCP - General FAMILY PRACTICE 05/24/19 02/27/24 Senthil Fisher MD Three [facility]. [facility] [address] [place] [address] Deanne Stacker Operator CARDIOVASCULAR DISEASE 05/29/19 documented as of this encounter
--- OUTSIDE RECORDS SUMMARY | 2024-05-20 12:11 | XMS_ITS | Encounter Summary ---
Author Organization [facility] Address [facility]6 [facility]. [place], [place] [address] [place] [address] Care Team Providers Care Lab Analyst Name Role Phone Joel Tanner MD Primary Care Provider + Senthil Fisher MD Unavailable [phone] Encounter Details Date Type Department Care Team (Late st Contact Info) Description 06/17/2019 Abstract [facility] at [facility], [address] [address] Rosalina Ortiz, [facility] [address] Social History Tobacco Use Types Packs/Day Years [...] on filedocumented in this encounter Care Teams Lab Analyst Relationship Specialty Start Date End Date Ciro, Joel Harinder, MD [address] [facility] 112 [place] [address] PCP - General FAMILY PRACTICE 05/24/19 02/27/24 Senthil Fisher MD Three [facility] [address] [place] [address] Deanne Tufting Supervisor CARDIOVASCULAR DISEASE 05/29/19 documented as of this encounter
--- OUTSIDE RECORDS SUMMARY | 2024-05-20 12:11 | XMS_ITS | Encounter Summary ---
Author Organization [facility] Address [facility] [place] [address] [place] [address] Care Team Providers Care Pick Up Attendant Name Role Phone Joel Stinson MD Primary Care Provider + Senthil Fisher MD Unavailable [phone] Reason for Visit * Reason Comments Follow Up chest pain Lipids Hypertension Encounter Details Date Type Department Care Team (Late st Contact Info) Description 01/08/2020 8:45 AM CDT Office Visit [facility] AT [address] [address] Senthil Fisher MD [address] [address] Follow Up (chest pain); Lipids; Hypertension Social History Tobacco Use Types Packs/Day Years [...] on file documented as of this encounter Last Filed Vital Signs Vital Sign Reading Time Taken Comments Blood Pressure 130/84 01/08/2020 8:44 AM CDT Pulse 65 01/08/2020 8:44 AM CDT Temperature - - Respiratory Rate - - Oxygen Saturation - - Inhaled Oxygen Concentration - - Weight 95.7 kg (211 lb) 01/08/2020 8:44 AM CDT Height 180.3 cm (5' 11 ) 01/08/2020 8:44 AM CDT Body Mass Index 29.43 01/08/2020 8:44 AM CDT documented in this encounter Patient Instructions * Patient Instructions* Cat Sahu - 01/08/2020 8:45 AM CDT Images from the original note were not included. Patient Education Patient Education Controlling Your Blood Pressure Through Lifestyle The Basics Written by the doctors and editors at [facility] What does my lifestyle have to do with my blood pressure???--??The things you do and the foods you eat have a big effect on your blood pressure and your overall health. Following the right lifestyle can: ?? Lower your blood pressure or keep you from getting high blood pressure in the first place ?? Reduce your need for blood pressure medicines ?? Make medicines for high blood pressure work better, if you do take them ?? Lower the chances that you'll have a heart attack or stroke, or develop kidney disease Which lifestyle choices will help lower my blood pressure???--??Here's what you can do: ?? Lose weight (if you are overweight) ?? Choose a diet rich in fruits, vegetables, and low-fat dairy products, and low in meats, sweets, and refined grains ?? Eat less salt (sodium) ?? Do something active for at least 30 minutes a day on most days of the week ?? Limit the amount of alcohol you drink If you have high blood pressure, it's also very important to quit smoking (if you smoke). Quitting smoking might not bring your blood pressure down. But it will lower the chances that you'll have a heart attack or stroke, and it will help you feel better and live longer. Start low and go slow??--??The changes listed above might sound like a lot, but don't worry. You don't have to change everything all at once. The colunga to improving your lifestyle is to start low and go slow. Choose 1 small, specific thing to change and try doing it for a while. If it works for you, keep doing it until it becomes a habit. If it doesn't, don't give up. Choose something else to change and see how that goes. Let's say, for example, that you would like to improve your diet. If you're the type of person who eats cheeseburgers and [place] fries all the time, you can't switch to eating just salads from one day to the next. When people try to make changes like that, they often fail. Then they feel frustratedand tend to give up. So instead of trying to change everything about your diet in 1 day, change 1 or 2 small things about your diet and give yourself time to get used to those changes. For instance, keep the cheeseburger but give up the [place] fries. Or eat the same things but cut your portions in half. As you find things that you are able to change and stick with, keep adding new changes. In time, you will see that you can actually change a lot. You just have to get used to the changes slowly. Lose weight??--??When people think about losing weight, they sometimes make it more complicated than it really is. To lose weight, you have to either eat less or move more. If you do both of those things, it's even better. But there is no single weight-loss diet or activity that's better than any other. When it comes to weight loss, the most effective plan is the one that you'll stick with. Improve your diet??--??There is no single diet that is right for everyone. But in general, a healthy diet can include: ?? Lots of fruits, vegetables, and whole grains ?? Some beans, peas, lentils, chickpeas, and similar foods ?? Some nuts, such as walnuts, almonds, and peanuts ?? Fat-free or low-fat milk and milk products ?? Some fish To have a healthy diet, it's also important to limit or avoid sugar, sweets, meats, and refined grains. (Refined grains are found in white bread, white rice, most forms of pasta, and most packaged snack foods.) Reduce salt??--??Many people think that eating a low-sodium diet means avoiding the salt shaker andnot adding salt when cooking. The truth is, not adding salt at the table or when you cook will onlyhelp a little. Almost all of the sodium you eat is already in the food you buy at the grocery storeor at restaurants (figure 1). The most important thing you can do to cut down on sodium is to eat less processed food. That meansthat you should avoid most foods that are sold in cans, boxes, jars, and bags. You should also eat in restaurants less often. To reduce the amount of sodium you get, buy fresh or fresh-frozen fruits, vegetables, and meats. (Fresh-frozen foods have had nothing added to them before freezing.) Then you can make meals at home, from scratch, with these ingredients. As with the other changes, don't try to cut out salt all at once. Instead, choose 1 or 2 foods thathave a lot of sodium and try to replace them with low- sodium choices. When you get used to those low-sodium options, find another food or 2 to change. Then keep going, until all the foods you eat aresodium-free or low in sodium. Become more active??--??If you want to be more active, you don't have to go to the gym or get all sweaty. It is possible to increase your activity level while doing everyday things you enjoy. Walking, gardening, and dancing are just a few of the things that you might try. As with all the other changes, the colunga is not to do too much too fast. If you don't do any activity now, start by walking for just a few minutes every other day. Do that for a few weeks. If you stick with it, try doing it for longer. But if you find that you don't like walking, try a different activity. Drink less alcohol??--??If you are a woman, do not have more than 1 standard drink of alcohol a day. If you are a man, do not have more than 2. A standard drink is: ?? A can or bottle that has 12 ounces of beer ?? A glass that has 5 ounces of wine ?? A shot that has 1.5 ounces of whiskey Where should I start???--??If you want to improve your lifestyle, start by making the changes that you think would be easiest for you. If you used to exercise and just got out of the habit, maybe it would be easy for you to start exercising again. Or if you actually like cooking meals from scratch,maybe the first thing you should focus on is eating home-cooked meals that are low in sodium. Whatever you tackle first, choose specific, realistic goals, and give yourself a deadline. For example, do not decide that you are going to exercise more. Instead, decide that you are going to walkfor 10 minutes on Monday, Monday, and Monday, and that you are going to do this for the next 2 weeks. When lifestyle changes are too general, people have a hard time following through. Now go. You can do it! All topics are updated as new evidence becomes available and our peer review process is complete. This topic retrieved from [employer] on: Nov 14, 2019. Topic 32102 Version 7.0 Release: 28.3.2 - C28.250 ?2020??[employer] and/or its affiliates.??All rights reserved. figure 1: Sources of sodium in your diet Graphic 20180 Version 2.0 Consumer Information Use and Disclaimer This information is not specific medical advice and does not replace information you receive from your health care provider. This is only a brief summary of general information. It does NOT include all information about conditions, illnesses, injuries, tests, procedures, treatments, therapies, discharge instructions or life-style choices that may apply to you. You must talk with your health care provider for complete information about your health and treatment options. This information should not be used to decide whether or not to accept your health care provider's advice, instructions or recommendations. Only your health care provider has the knowledge and training to provide advice that is right for you.The use of [employer] content is governed by the [employer] Terms of Use. ??2020 [employer]. All rights reserved. Copyright ?2020??[employer] and/or its affiliates.??All rights reserved. documented in this encounter Progress Notes * Senthil Fisher MD - 01/08/2020 8:45 AM CDT * Senthil Fisher MD - 01/08/2020 8:45 AM CDT REASON FOR FOLLOWUP: Chest pain. HISTORY OF PRESENT ILLNESS: A 44-year-old gentleman who has a history of chest discomfort, was seenearlier this year. Patient had a reassuring stress test in June 2019. He presents for followup.Clinically, he has been doing well. He denies any chest pains or shortness of breath. Patient has hyperlipidemia. He has not had a recent lipid panel. The patient did stop his Lisinopril because of lightheadedness, dizziness. He otherwise has no other new complaints. He notes one other episode of chest discomfort, but no recurrence. Imp/Rec 1. Chest pain. Patient is doing well. He has had no recurrent chest discomfort. 2. Hyperlipidemia. Patient should have a repeat lipid panel. 3. Hypertension. Blood pressures are well controlled. I recommend he follow up with his primary care physician. Otherwise, we are going to see him back on an as needed basis. Patient exercised to 10.8 METS. The baseline electrocardiogram demonstrates normal sinus rhythm with some minimal nonspecific ST-T wave abnormalities. ?? During exercise, patient had no significant ST elevation or depression. There were no significant arrhythmias during exercise or in recovery. ?? Patient complained of some mild shortness of breath with exertion with no chest pain during exercise in recovery. The patient had no symptoms in recovery. ?? The ECG in recovery demonstrated no significant ST elevation or depression. ?? CONCLUSIONS: 1. Clinically and electrocardiographically negative portion of treadmill exercise test. Excellent exercise capacity. 2. Overall study is low risk for myocardial event. Medications: Current Outpatient Medications: ??? lisinopril 20 MG tablet, Take 1 tablet (20 mg total) by mouth daily., Disp: 30 tablet, Rfl: 0 No Known Allergies Past Medical History: Diagnosis Date ??? Chest pain ??? Hypertension, essential, benign ??? Kidney stones x 2 ??? Sleep apnea Past Surgical History: Procedure Laterality Date ??? SHOULDER SURGERY Bilateral torn labrum ??? SINUS SURGERY Social History Tobacco Use ??? Smoking status: Former Smoker Types: Cigarettes Last attempt to quit: 1998 Years since quittin.6 ??? Smokeless tobacco: Never Used Substance Use Topics ??? Alcohol use: No Frequency: 2-4 times a month ??? Drug use: No Family History Problem Relation Name Age of Onset ??? Lung Cancer Mother ??? Heart Attack Father Family Status Relation Name Status ??? Mother at age 62 ??? Father at age 62 Review of Systems Constitutional: Negative for recent unintentional weight gain, recent unintentional weight loss andnew or significant fatigue. HENT: Negative for new or significant hearing loss. Eyes: Negative for blurred vision and double vision. Respiratory: Negative for cough, new or significant shortness of breath and snoring. Cardiovascular: See HPI. Gastrointestinal: Negative for blood in stool and melena. Genitourinary: Negative for dysuria. Musculoskeletal: Negative for myalgias and new or worsening joint stiffness/pain. Skin: Negative for rash. Neurological: Negative for tingling/numbness and focal weakness. Endo/Heme/Allergies: Negative for new or significant bruising/bleeding and polydipsia. Psychiatric/Behavioral: Negative for depression and new or significant memory loss. All other systems reviewed and are negative. Vitals: 01/08/20 0844 BP: 130/84 Pulse: 65 Body mass index is 29.43 kg/m??. Physical Exam Constitutional: No distress. HENT: Teeth/gums normal. Eyes: Pupils equal, round, and reactive to light. Conjunctivae normal. Neck: Normal range of motion. Neck supple. Thyroid normal. No JVD. Pulmonary: Effort normal. Breath sounds normal. Abdomen: Abdomen soft. Bowel sounds normal. No tenderness. No mass. Neurological: Alert. Oriented x 3. Appropriate for situation. Intact cranial nerves. Normal motor skills. Normal gait. Skin: Dry. Warm. No cyanosis. No clubbing. Musculoskeletal: No kyphosis. Normal ROM. Cardiovascular: Rate: Regular rhythm and Normal rate. PMI: PMI not displaced Pulses: Negative for edema. Normal pulses. Heart Sounds: Normal heart sounds. Normal S1 and Normal S2 No gallop. No S3 sound. No S4 sound and No murmur. Cardiovascular Comments: Diagnoses/Impression: No diagnosis found. Referring Provider: No ref. provider found PCP: JOEL STINSON MD * Senthil Fisher MD - 01/08/2020 12:00 AM CDT documented in this encounter Plan of Treatment Not on file documented as of this encounter Visit Diagnoses Diagnosis Chest pain, unspecified type- Primary documented in this encounter Care Teams Pick Up Attendant Relationship Specialty Start Date End Date Joel Stinson MD [address] [facility] [address] [place] [address] PCP - General FAMILY PRACTICE 05/24/19 02/27/[address] [facility]. [address] [place] [address] [place] [employer] Technologist CARDIOVASCULAR DISEASE 05/29/19 documented as of this encounter
--- OUTSIDE RECORDS SUMMARY | 2024-05-20 12:11 | XMS_ITS | Encounter Summary ---
Author Organization [facility] Address [facility]. [place], [place] [id number] [place] [address] Care Team Providers Care Coach Driver Name Role Phone Joel Stinson MD Primary Care Provider + Senthil Fisher MD Unavailable Reason for Referral * Consultation/Treatment (Routine) - Closed Specialty Diagnoses / Procedures Referred By Contac t Referred To Contact UROLOGY Diagnoses Decreased urine stream Joel Stinson MD [address] [address] Phone: tel: fax: Aaron Kahn MD Phone: tel: fax: Referral ID Status Reason Start Date Expiration Date Visits Re quested Visits Authorized [id number] Closed 02/16/2021 03/20/2022 100 100 Reason for Visit * Reason Comments Physical check up and refill on lisinopril Encounter Details Date Type Department Care Team (Late st Contact Info) Description 02/15/2021 5:20 PM CDT Office Visit [facility] [address] [place] [address] Joel Stinson MD [address] [place] [id number] Physical (check up and refill on lisinopril) Social History Tobacco Use Types Packs/Day Years [...] Sign Reading Time Taken Comments Blood Pressure 158/94 02/15/2021 5:23 PM CDT Pulse 63 02/15/2021 5:23 PM CDT Temperature 36.5 ??C (97.7 ??F) 02/15/2021 5:23 PM CD T Respiratory Rate 16 02/15/2021 5:23 PM CDT Oxygen Saturation 96% 02/15/2021 5:23 PM CDT Inhaled Oxygen Concentration - - Weight 102.1 kg (225 lb) 02/15/2021 5:23 PM CDT Height 180.3 cm (5' 11 ) 02/15/2021 5:23 PM CDT Body Mass Index 31.38 02/15/2021 5:23 PM CDT documented in this encounter Patient Instructions * Patient Instructions* Joel Stinson MD - 02/15/2021 5:20 PM CDT Resume blood pressure medication, recheck labs in two weeks, and recheck blood pressure here in a month. Will refer to urology for urine symptoms. documented in this encounter Progress Notes * Joel Stinson MD - 02/15/2021 5:20 PM CDT Chief Complaint: Physical (check up and refill on lisinopril) HPI: Guzman Villagran is a 45-year-old male here for follow-up on blood pressure. He has been out of medication for several days. No side effects with medicine or acute illness. He is fully covid vaccinated. He does continue to have problems with urine stream--very weak stream. Had seen urology 10/2019and was supposed to have cystoscopy but this never got done. ROS: Review of Systems Constitutional: Negative for fever. Respiratory: Negative for shortness of breath. Cardiovascular: Negative for chest pain and palpitations. Gastrointestinal: Negative for abdominal pain. Genitourinary: Positive for frequency. Negative for dysuria and hematuria. Neurological: Negative for headaches. Physical Exam Constitutional: He is oriented to person, place, and time and well-developed, well-nourished, and in no distress. Cardiovascular: Normal rate and regular rhythm. Pulmonary/Chest: Breath sounds normal. Abdominal: Soft. Musculoskeletal: General: No edema. Cervical back: Neck supple. Neurological: He is alert and oriented to person, place, and time. Psychiatric: Mood and affect normal. Current Outpatient Medications Medication Sig ??? lisinopril 20 MG tablet Take 1 tablet (20 mg total) by mouth daily. No current facility-administered medications for this visit. [...] Substance Use Topics ??? Alcohol use: No Family History Problem Relation Name Age of Onset ??? Lung Cancer Mother ??? Heart Attack Father Vitals: 02/15/21 1723 BP: (!) 158/94 Pulse: 63 Temp: 97.7 ??F (36.5 ??C) TempSrc: Temporal Weight: 102.1 kg (225 lb) Height: 5' 11 (1.803 m) Diagnoses/Impression: Hypertension, unspecified type (primary encounter diagnosis) Decreased urine stream Recommendations and Plan: Orders Placed This Encounter ??? LIPID PANEL Standing Status: Future Standing Expiration Date: 02/15/2022 Order Specific Question: Release to patient Answer: System release ??? COMPREHENSIVE METABOLIC PANEL Standing Status: Future Standing Expiration Date: 02/15/2022 Order Specific Question: Release to patient Answer: System release ??? TESTOSTERONE, TOTAL Standing Status: Future Standing Expiration Date: 02/15/2022 Order Specific Question: Release to patient Answer: System release ??? Ambulatory referral to Urology ( [place]) Referral Priority: Routine Referral Type: Consultation Referral Reason: Specialty Services Referred to Provider: Aaron Kahn MD Requested Specialty: UROLOGY Number of Visits Requested: 1 Expiration Date: 03/20/2022 ??? lisinopril 20 MG tablet Sig: Take 1 tablet (20 mg total) by mouth daily. Dispense: 90 tablet Refill: 0 Patient Instructions Resume blood pressure medication, recheck labs in two weeks, and recheck blood pressure here in a month. Will refer to urology for urine symptoms. JOEL STINSON MD Referring Provider: Self Referral PCP: JOEL STINSON MD documented in this encounter Plan of Treatment Scheduled Referrals Name Type Priority Associated Diagnoses Orde r Schedule Ambulatory referral to Urology ( [place]) Referral Routine Decreased urine stream Ordered: 02/16/2021 documented as of this encounter Results * TESTOSTERONE, TOTAL (03/19/2021 7:44 AM CDT) TESTOSTERONE TOTAL 288 250 - 1,100 ng/dL 03/24/2021 2:36 PM CDT [employer] [facility] Comment: For additional information, please refer to http://[email or web address].TouchTen/faq/ [email or web address] (This link is being provided for informational/ educational purposes only.) This test was developed and its analytical performance characteristics have been determined by [employer] [place], [place]. It has not been cleared or approved by the U.S. Food and Drug Administration. This assay has been validated pursuant to the CLIA regulations and is used for clinical purposes. Test Performed by [employer] [place], [employer] [facility], [address] [place], [place] Darnell Bello M.D., Ph.D., Director of Laboratories , CLIA [id number] 03/19/2021 7:44 AM CDT Joel Stinson MD LABORATORY Final Re sult [employer] [facility] [address] [place], [place] , * (ABNORMAL) COMPREHENSIVE METABOLIC PANEL (03/19/2021 7:44 AM CDT) GLUCOSE 119(H) 70 - 99 MG/DL 03/19/2021 8:34 AM CDT [facility] BUN 19(H) 7 - 18 MG/DL 03/19/2021 8:34 AM CDT [facility] CREATININE S/P/B 1.10 0.7 - 1.3 MG/DL 03/19/2021 8:34 AM CDT [facility] SODIUM S/P/B 140 136 - 145 MMOL/L 03/19/2021 8:34 AM CDT [facility] POTASSIUM S/P/B 4.3 3.5 - 5.1 MMOL/L 03/19/2021 8:34 AM CDT [facility] CHLORIDE S/P/B 104 100 - 108 MMOL/L 03/19/2021 8:34 AM T [facility] CO2 27.9 21 - 32 MMOL/L 03/19/2021 8:34 AM T [facility] CALCIUM S/P/B 8.6 8.5 - 10.1 MG/DL 03/19/2021 8:34 AM T [facility] BILIRUBIN TOTAL S/P/B 0.9 0.2 - 1.2 MG/DL 03/19/2021 8:34 AM T [facility] Comment: THIS ASSAY IS NOT RECOMMENDED FOR PATIENTS UNDERGOING TREATMENT WITH ELTROMBOPAG DUE TO THE POTENTIAL FOR FALSELY ELEVATED RESULTS. TOTAL PROTEIN S/P/B 7.1 6.4 - 8.2 G/DL 03/19/2021 8:34 AM T [facility] ALBUMIN S/P/B 3.9 3.4 - 5.0 G/DL 03/19/2021 8:34 AM [facility] AST 49(H) 15 - 37 U/L 03/19/2021 8:34 AM [facility] ALT 126(H) 16 - 60 U/L 03/19/2021 8:34 AM [facility] ALKALINE PHOSPHATASE S/P/B 69 50 - 136 U/L 03/19/2021 8:34 AM T [facility] ANION GAP 8.1 5 - 15 MMOL/L 03/19/2021 8:34 AM T [facility] BUN CREATININE RATIO 17.3 6 - 26 03/19/2021 8:34 AM [facility] A/G RATIO 1.2 1.0 - 2.0 RATIO 03/19/2021 8:34 AM [facility] EGFR NON-AFR. AMER. 81(L) >90 ML/MIN/1.7 3 M2 03/19/2021 8:34 AM CDT [facility] EGFR AFR. AMER. >90 >90 ML/MIN/1.7 3 M2 03/19/2021 8:34 AM T [facility] Comment: NOTE: eGFR is not calculated for patients <18 years of age. This is an estimated GFR (CKD EPI) and should not be used for calculating drug doses. 03/19/2021 7:44 AM CDT us Joel Stinson MD LABORATORY Final Re sult [facility] [address] [place] [id number], * (ABNORMAL) LIPID PANEL (03/19/2021 7:44 AM CDT) Pathologist [facility] CHOLESTEROL 276(H) <200 MG/DL 03/19/2021 8:34 AM T [facility] TRIGLYCERIDES 87 <150 MG/DL 03/19/2021 8:34 AM [facility] HDL 44 >40.0 MG/DL 03/19/2021 8:34 AM T [facility] LDL (CALCULATED) 215(H) <100 MG/DL 03/19/2021 8:34 AM T [facility] NON HDL CHOLESTEROL 232(H) <130 MG/DL 03/19/2021 8:34 AM T [facility] Comment: NOTE: WHEN THE TRIGLYCERIDES ARE >200 mg/dL, NON HDL C IS A SECONDARY TARGET OF THERAPY, WITH A GOAL 30 mg/dL HIGHER THAN THE IDENTIFIED LDL C GOAL. CHOL/HDL RATIO 6.3(H) 0.0 - 4.5 03/19/2021 8:34 AM T [facility] VLDL CALCULATION 17 5 - 55 MG/DL 03/19/2021 8:34 AM CDT [facility] LIPID INTERPRETATION 03/19/2021 8:34 AM CDT [facility] Comment: [facility] CONCENSUS REPORT RECOMMENDATIONS: [...] ? >=160 ?>=130 03/19/2021 7:44 AM CDT Joel Stinson MD LABORATORY Final Re sult [facility] [address] [place] [address], documented in this encounter Visit Diagnoses Diagnosis Hypertension, unspecified type- Primary Decreased urine stream Slowing of urinary stream documented in this encounter Additional Health Concerns Assessment Noted Time PHQ-9 Depression Total Score: 0 02/16/20 21 5:23 PM CDT documented as of this encounter Care Teams Coach Driver Relationship Specialty Start Date End Date Joel Stinson MD [address] [facility] [address] [place] [id number] PCP - General FAMILY PRACTICE 05/24/19 02/27/24 Senthil Fisher MD [facility] [address] [place] [address] Adrian Weld Inspector CARDIOVASCULAR DISEASE 05/29/19 documented as of this encounter
--- OUTSIDE RECORDS SUMMARY | 2024-05-20 12:11 | XMS_ITS | Encounter Summary ---
Author Organization [facility] Address [facility] [place] [address] [place] [address] Care Team Providers Care Fine Patcher Name Role Phone Joel Tanner MD Primary Care Provider + Senthil Fisher MD Unavailable [phone] Encounter Details Date Type Department Care Team (Latest Contact Info) Description 03/29/2021 4:43 PM OIL RIG ROUGHNECK - 03/29/2021 11:59 PM [facility] Hospital Encounter [facility] [address] [place] [address] Joel Tanner MD [address] [facility] [address] [place] [address] Discharge Disposition: Home or Self [...] COVID-19? No / Unsure 03/29/2021 2:32 PM OIL RIG ROUGHNECK documented as of this encounter Medications at [...] Date/Time Associated Diagnosis Comments HEPATITIS PANEL,ACUTE Routine 03/29/2021 4:51 PM OIL RIG ROUGHNECK LFT elevation documented in this encounter Results * HEPATITIS PANEL,ACUTE (03/29/2021 4:51 PM OIL RIG ROUGHNECK) HEPATITIS B SURFACE AG NON-REACTI VE NON-REACTI VE 03/30/2021 1:19 PM OIL RIG ROUGHNECK [facility] HEP B CORE IGM NON-REACTI VE NON-REACTI VE 03/30/2021 1:20 PM OIL RIG ROUGHNECK [facility] HAV IGM NON-REACTI VE NON-REACTI VE 03/30/2021 1:20 PM OIL RIG ROUGHNECK [facility] HEPATITIS C AB NON-REACTI VE NON-REACTI VE 03/30/2021 1:20 PM OIL RIG ROUGHNECK [facility] 03/29/2021 4:51 PM OIL RIG ROUGHNECK Joel Tanner MD LABORATORY Final Re sult [facility] [address] [facility] [place] [address], documented in this encounter Visit Diagnoses Diagnosis LFT elevation Other abnormal blood chemistry documented in this encounter Additional Health Concerns Assessment Noted Time PHQ-9 Depression Total Score: 0 03/29/20 21 2:54 PM OIL RIG ROUGHNECK documented as of this encounter Care Teams Fine Patcher Relationship Specialty Start Date End Date Joel Tanner MD [address] [facility] [address] [place] [address] PCP - General FAMILY PRACTICE 05/24/19 02/27/24 Senthil Fisher MD [address] [place] [address] Deanne Stippler CARDIOVASCULAR DISEASE 05/29/19 documented as of this encounter
--- OUTSIDE RECORDS SUMMARY | 2024-05-20 12:11 | XMS_ITS | Encounter Summary ---
Author Organization [facility] Address formerly [facility]6 [facility]. [place], [place] [address] [place] [address] Care Team Providers Care Credit Department Manager Name Role Phone Joel Tanner MD Primary Care Provider + Senthil Fisher MD Unavailable [phone] Reason for Referral * Procedure (Routine) - Closed Specialty Diagnoses / Procedures Referred By Contac t Referred To Contact CARDIOLOGY Diagnoses Precordial pain Procedures STRESS TEST ONLY, EXERCISE ([id number]) Senthil Fisher MD [address] [address] Phone: tel: fax: [address] [address] Phone: tel: Referral ID Status Reason Start Date Expiration Date Visits Re quested Visits Authorized [id number] Closed 06/05/2019 07/25/2019 1 1 ICAL RN LIAISON Reason for Visit * Procedure (Routine) - Closed Specialty Diagnoses / Procedures Referred By Contac t Referred To Contact CARDIOLOGY Diagnoses Precordial pain Procedures STRESS TEST ONLY, EXERCISE ([id number]) Senthil Fisher MD [address] [address] Phone: tel: fax: [facility] [address] [place] [address] Phone: tel: Referral ID Status Reason Start Date Expiration Date Visits Re quested Visits Authorized [id number] Closed 06/05/2019 07/25/2019 1 1 Encounter Details Date Type Department Care Team (Latest Contact Info) Description 06/26/2019 9:30 AM CLINICAL RN LIAISON - 06/26/2019 11:59 PM CLINICAL RN LIAISON Hospital Encounter [facility] Cardiopulmonary Services [address] [place] [address] Senthil Fisher MD [address] [address] Discharge Disposition: Home or Self Care (Routine [...] mg total) by mouth daily. 90 tablet 06/13/2019 07/05/2019 documented as of this encounter Plan of Treatment Not on file documented as of this encounter Procedures Procedure Name Priority Date/Time Associated Diagnosis Comments STRESS TEST ONLY, EXERCISE Routine 06/26/2019 6:55 PM CLINICAL RN LIAISON Precordial pain documented in this encounter Results * STRESS TEST ONLY, EXERCISE ([id number]) (06/26/2019 6:55 PM CLINICAL RN LIAISON) 06/26/2019 6:55 PM CLINICAL RN LIAISON Narrative ESCRIPTION - 06/28/2019 12:19 PM CLINICAL RN LIAISON INDICATION: ??Chest pain. PROCEDURE: ??Patient exercised on the treadmill using a standard Neo protocol. ??He exercised on an accelerated protocol. ??Stage I was skipped. During exercise, patient was monitored for heart rate response, blood pressure response, ECG changes and arrhythmias. ??In addition, he was assessed for any symptoms during exercise. FINDINGS: ??The resting heart rate was 71 beats per minute with a blood pressure of 104/80 mmHg. The patient exercised stage IV Neo protocol for 7 minutes 55 seconds. ?? He achieved a maximum heart rate of 163 beats per minute, which is 91% of his maximum age-predicted heart rate. ??Blood pressure christina to 132/90 mmHg. Patient exercised to 10.8 METS. ??The baseline electrocardiogram demonstrates normal sinus rhythm with some minimal nonspecific ST-T wave abnormalities. During exercise, patient had no significant ST elevation or depression. ?? There were no significant arrhythmias during exercise or in recovery. Patient complained of some mild shortness of breath with exertion with no chest pain during exercise in recovery. ??The patient had no symptoms in recovery. The ECG in recovery demonstrated no significant ST elevation or depression. CONCLUSIONS: 1. ??Clinically and electrocardiographically negative portion of treadmill exercise test. ??Excellent exercise capacity. 2. ??Overall study is low risk for myocardial event. D: ??06/26/2019 06:55 PM #[id number] T: ??06/26/2019 08:03 PM /NTS Procedure Note Senthil Fisher MD - 06/28/2019 INDICATION: Chest pain. PROCEDURE: Patient exercised on the treadmill using a standard Bruceprotocol. He exercised on an accelerated protocol. Stage I wasskipped. During exercise, patient was monitored for heart rate response, bloodpressure response, ECG changes and arrhythmias. In addition, he wasassessed for any symptoms during exercise. FINDINGS: The resting heart rate was 71 beats per minute with a bloodpressure of 104/80 mmHg. The patient exercised stage IV Neo protocol for 7 minutes 55 seconds.He achieved a maximum heart rate of 163 beats per minute, which is 91% ofhis maximum age- predicted heart rate. Blood pressure christina to 132/90mmHg. Patient exercised to 10.8 METS. The baseline electrocardiogramdemonstrates normal sinus rhythm with some minimal nonspecific ST-T waveabnormalities. During exercise, patient had no significant ST elevation or depression.There were no significant arrhythmias during exercise or in recovery. Patient complained of some mild shortness of breath with exertion with nochest pain during exercise in recovery. The patient had no symptoms inrecovery. The ECG in recovery demonstrated no significant ST elevation ordepression. CONCLUSIONS: 1. Clinically and electrocardiographically negative portion of treadmillexercise test. Excellent exercise capacity. 2. Overall study is low risk for myocardial event. #[id number] /NTS Senthil Fisher MD CV CARDIAC SERVICES ORDERABLES Final Result ESCRIPTION documented in this encounter Visit Diagnoses Diagnosis Precordial pain documented in this encounter Care Teams Credit Department Manager Relationship Specialty Start Date End Date Joel Tanner MD [address] [facility] [address] [place] [address] PCP - General FAMILY PRACTICE 05/24/19 02/27/24 Senthil Fisher MD [facility] [address] [place] [address] Deanne Construction Crew Member CARDIOVASCULAR DISEASE 05/29/19 documented as of this encounter
--- OUTSIDE RECORDS SUMMARY | 2024-05-20 12:11 | XMS_ITS | Encounter Summary ---
Author Organization [facility] Address [facility]6 [facility]. [place], [place] [address] [place] [address] Care Team Providers Care Android Ui Developer Name Role Phone Joel Tanner MD Primary Care Provider + Senthil Fisher MD Unavailable [phone] Reason for Visit * Reason Onset Date Comments Reschedule 12/20/2021 Encounter Details Date Type Department Care Team (Late st Contact Info) Description 12/20/2021 Telephone [facility] Medical Group Multispecialty Care - [address], [address] [place] [address] Aaron Kahn MD [address] [place] [address] ANIL KRUGER [address] Reschedule Social History Tobacco Use Types Packs/Day Years [...] as of this encounter Progress Notes * Adriane Cerrato MA - 12/20/2021 8:41 AM CDT Call placed to pt, pt rescheduled for December 27 documented in this encounter Plan of Treatment Not on file documented as of this encounter Visit Diagnoses Not on filedocumented in this encounter Additional Health Concerns Assessment Noted Time PHQ-9 Depression Total Score: 0 06/28/19 22 3:59 PM ORACLE DATABASE ADMINISTRATOR documented as of this encounter Care Teams Android Ui Developer Relationship Specialty Start Date End Date Joel Tanner MD [address] [facility] 112 [place] [address] PCP - General FAMILY PRACTICE 05/24/19 02/27/24 Senthil Fisher MD Three [facility]. [address] [place] [address] Deanne Disaster Recovery Consultant CARDIOVASCULAR DISEASE 05/29/19 documented as of this encounter
--- OUTSIDE RECORDS SUMMARY | 2024-05-20 12:11 | XMS_ITS | Encounter Summary ---
Author Organization [facility] Address [facility]6 [place] [address] [place] [address] Care Team Providers Care Media Sales Consultant Name Role Phone Joel Stinson MD Primary Care Provider + Senthil Fisher MD Unavailable [phone] Reason for Visit * Reason Comments Chest Pain 1 mo f/u Encounter Details Date Type Department Care Team (Late st Contact Info) Description 07/03/2019 11:30 AM SHAKER WASHER Office Visit [facility] AT [address] [address] Senthil Fisher MD [address] [address] Chest Pain (1 mo f/u) Social History Tobacco Use Types Packs/Day [...] Sign Reading Time Taken Comments Blood Pressure 120/80 07/03/2019 11:37 AM SHAKER WASHER Pulse 77 07/03/2019 11:37 AM SHAKER WASHER Temperature - - Respiratory Rate - - Oxygen Saturation - - Inhaled Oxygen Concentration - - Weight 94.3 kg (208 lb) 07/03/2019 11:37 AM SHAKER WASHER Height 180.3 cm (5' 11 ) 07/03/2019 11:37 AM SHAKER WASHER Body Mass Index 29.01 07/03/2019 11:37 AM SHAKER WASHER documented in this encounter Patient Instructions * Patient Instructions* Davin Levi Akira - 07/03/2019 11:30 AM SHAKER WASHER Patient Education Patient Education High Blood Pressure in Adults The Basics Written by the doctors and editors at [facility] What is high blood pressure???--??High blood pressure is a condition that puts you at risk for heart attack, stroke, and kidney disease. It does not usually cause symptoms. But it can be serious. When your doctor or nurse tells you your blood pressure, he or she will say 2 numbers. For instance, your doctor or nurse might say that your blood pressure is 130 over 80. The top number is the pressure inside your arteries when your heart is lindy. The bottom number is the pressure insideyour arteries when your heart is relaxed. The table shows how doctors and nurses define high and normal blood pressure (table 1). Elevated blood pressure is a term doctors or nurses use as a warning. People with elevated blood pressure do not yet have high blood pressure. But their blood pressure is not as low as it should be for good hea lth. How can I lower my blood pressure???--??If your doctor or nurse has prescribed blood pressure medicine, the most important thing you can do is to take it. If it causes side effects, do not just stop taking it. Instead, talk to your doctor or nurse about the problems it causes. He or she might be able to lower your dose or switch you to another medicine. If cost is a problem, mention that too. He or she might be able to put you on a less expensive medicine. Taking your blood pressure medicine can keep you from having a heart attack or stroke, and it can save your life! Can I do anything on my own???--??You have a lot of control over your blood pressure. To lower it: ?? Lose weight (if you are overweight) ?? Choose a diet low in fat and rich in fruits, vegetables, and low-fat dairy products ?? Reduce the amount of salt you eat ?? Do something active for at least 30 minutes a day on most days of the week ?? Cut down on alcohol (if you drink more than 2 alcoholic drinks per day) It's also a good idea to get a home blood pressure meter. People who check their own blood pressureat home do better at keeping it low and can sometimes even reduce the amount of medicine they take. All topics are updated as new evidence becomes available and our peer review process is complete. This topic retrieved from path intelligence on: Jan 02, 2019. Topic 33156 Version 13.0 Release: 27.3.2 - C27.227 ?2019??[employer] and/or its affiliates.??All rights reserved. table 1: Definition of normal and high blood pressure Level Top number Bottom number High 130 or above 80 or above Elevated 120 to 129 79 or below Normal 119 or below 79 or below ?? These definitions are from the [place] [employer]/[place] [employer]. Other expert groups might use slightly different definitions. ?? Elevated blood pressure is a term doctor or nurses use as a warning. It means you do not yet have high blood pressure, but your blood pressure is not as low as it should be for good health. Graphic 16251 Version 6.0 Consumer Information Use and Disclaimer This information [...] that is right for you.The use of [employer] content is governed by the UpToDate Terms of Use. ??2019 [employer]. All rights reserved. Copyright ?2019??[employer]. and/or its affiliates.??All rights reserved. ER WASHER documented in this encounter Progress Notes * Senthil Fisher MD - 07/03/2019 11:30 AM CST Reason for Visit: No chief complaint on file. Medications: Current Outpatient Medications: ??? lisinopril 20 MG tablet, Take 1 tablet (20 mg total) by mouth daily., Disp: 90 tablet, Rfl: 0 No Known Allergies Past Medical History: Diagnosis Date ??? Chest pain ??? Hypertension, essential, benign ??? Kidney stones x 2 ??? Sleep apnea Past Surgical History: Procedure Laterality Date ??? SHOULDER SURGERY Bilateral torn labrum ??? SINUS SURGERY Social History Tobacco Use ??? Smoking status: Former Smoker Types: Cigarettes Last attempt to quit: 1998 Years since quittin.1 ??? Smokeless tobacco: Never Used Substance Use [...] shortness of breath and snoring. Cardiovascular: See HPI Gastrointestinal: Negative for blood in stool and melena. Genitourinary: Negative for dysuria. Musculoskeletal: Negative for myalgias and new or worsening joint stiffness/pain. Skin: Negative for rash. Neurological: Negative for tingling/numbness and focal weakness. Endo/Heme/Allergies: Negative for new or significant bruising/bleeding and polydipsia. Psychiatric/Behavioral: Negative for depression and new or significant memory loss. There were no vitals filed for this visit. There is no height or weight on file to calculate BMI. Physical Exam Rate/Rhythm: regular rhythm and normal rate . Heart Sounds: normal heart sounds, normal S1 and normal S2 no gallop, no S3 sound, no S4 sound and no murmur. . PMI: PMI not displaced. Pulses: normal pulses negative for edema Constitutional: healthy appearance not distressed. . Neck: normal range of motion, neck supple and thyroid normal no JVD. . Pulmonary/Chest Wall: effort normal and breath sounds normal . HEENT: teeth/gums normal and oropharynx clear and moist. . Abdomen: abdomen soft and bowel sounds normal No tenderness. no mass. . Eyes: pupils equal, round, and reactive to light and conjunctivae normal. Neurological: alert, oriented x 3, appropriate for situation, intact cranial nerves and normal motor skillsnormal gait, . Skin: dry and warm no cyanosis and no clubbing. Musculoskeletal: no kyphosis normal ROM Cardiovascular Comments: Diagnoses/Impression: No diagnosis found. Referring Provider: No ref. provider found PCP: JOEL STINSON MD * Senthil Fisher MD - 07/03/2019 12:00 AM CST REASON FOR FOLLOWUP: Chest pain. HISTORY OF PRESENT ILLNESS: This is a 43-year-old gentleman who has no known history of coronary artery disease and was initially seen by me for complaints of chest discomfort. Patient had a stress test which was negative for ischemia. He had excellent exercise capacity. We had him come back for followup today. Overall, the past month, he has done well. He has had no recurrent chest pain. He denies any other new complaints. He has had no fevers, chills, or cough. He is otherwise doing well. IMPRESSION AND RECOMMENDATION: 1. Chest pain. His symptoms are resolved at this point. For now, monitor him clinically. 2. Hyperlipidemia. Patient's lipids are moderately elevated today. We discussed a trial of lifestyle changes prior to starting any statins, which I think is quite reasonable. We discussed having moreof a whole food plant-based diet, which the patient is going to attempt. He will see me back in 6 months or sooner as needed. documented in this encounter Plan of Treatment Not on file documented as of this encounter Visit Diagnoses Diagnosis Hypertension, essential, benign- Primary Essential hypertension, benign Chest pain, unspecified type documented in this encounter Care Teams Media Sales Consultant Relationship Specialty Start Date End Date Joel Stinson MD [address] [facility] 112 [place] [address] PCP - General FAMILY PRACTICE 05/24/19 02/27/24 Senthil Fisher MD [facility]. [facility] [address] [place] [address] Deanne Absorption Operator CARDIOVASCULAR DISEASE 05/29/19 documented as of this encounter
--- OUTSIDE RECORDS SUMMARY | 2024-05-20 12:11 | XMS_ITS | Encounter Summary ---
Author Organization [facility] Address [facility]6 [facility]. [place], [place] [address] [place] [address] Care Team Providers Care It Support Specialist Name Role Phone Joel Tanner MD Primary Care Provider + Senthil Fisher MD Unavailable [phone] Reason for Referral * Consultation (Routine) - Closed Specialty Diagnoses / Procedures Referred By Buck camacho Referred To Contact UROLOGY Diagnoses Low testosterone Joel Tanner MD [address] [address] Phone: tel: fax: [facility] Medical Group Multispecialty Care - [facility] 3 [facility], [address] [place] [address] Phone: tel: fax: Referral ID Status Reason Start Date Expiration Date Visits Re quested Visits Authorized [id number] Closed 06/20/2019 07/20/2020 100 100 DREN'S LITERATURE PROFESSOR Reason for Visit * Reason Onset Date Comments Results 06/17/2019 Encounter Details Date Type Department Care Team ([facility] Contact Info) Description 06/17/2019 Telephone [facility] [address] [place] [address] Joel Tanner MD [address] [place] [address] Results Social History Tobacco Use Types Packs/Day Years [...] Progress Notes * Silvia Robledo RN - 06/20/2019 4:35 PM CST Pt voices understanding. Agreeable to referral. DREN'S LITERATURE PROFESSOR * Silvia Robledo RN - 06/20/2019 11:10 AM CST ----- Message from Joel Tanner MD sent at 06/20/2019 7:15 AM CHILDREN'S LITERATURE PROFESSOR ----- Testosterone a little low with other labs ok. Urology referral. DREN'S LITERATURE PROFESSOR * Silvia Robledo RN - 06/17/2019 1:54 PM CST waiting for lab results DREN'S LITERATURE PROFESSOR * Joel Tanner MD - 06/17/2019 12:59 PM CST Yes. Will just take time to heal. DREN'S LITERATURE PROFESSOR * Silvia Robledo RN - 06/17/2019 11:26 AM CST Ibuprofen? Any other suggestions? DREN'S LITERATURE PROFESSOR * Silvia Robledo RN - 06/17/2019 11:26 AM CST ----- Message from Joel Tanner MD sent at 06/17/2019 11:08 AM CHILDREN'S LITERATURE PROFESSOR ----- He does have two rib fractures on right side. DREN'S LITERATURE PROFESSOR documented in this encounter Plan of Treatment Scheduled Referrals Name Type Priority Associated Diagnoses Orde r Schedule Ambulatory referral to Urology (OTHER) Referral Routine Low testosterone Ordered: 06/20/2019 documented as of this encounter Visit Diagnoses Diagnosis Low testosterone- Primary Other testicular hypofunction documented in this encounter Care Teams It Support Specialist Relationship Specialty Start Date End Date Joel Tanner MD [address] [facility] 112 [place] [address] PCP - General FAMILY PRACTICE 05/24/19 02/27/24 Senthil Fisher MD Three [facility]. [address] [place] [address] Deanne Wrecking Car Driver CARDIOVASCULAR DISEASE 05/29/19 documented as of this encounter
--- OUTSIDE RECORDS SUMMARY | 2024-05-20 12:11 | XMS_ITS | Encounter Summary ---
Author Organization [facility] Address [address] [facility]. [place], [place] [address] [place] [address] Care Team Providers Care Senior Buyer Planner Name Role Phone Joel Tanner MD Primary Care Provider + Senthil Fisher MD Unavailable [phone] Reason for Visit * Reason Comments Low Testosterone * Consultation/Treatment (Routine) - Closed Specialty Diagnoses / Procedures Referred By Contac t Referred To Contact UROLOGY Diagnoses Decreased urine stream Joel Tanner MD [address] [address] Phone: tel: fax: Franco Kahn MD Phone: tel: fax: Referral ID Status Reason Start Date Expiration Date Visits Re quested Visits Authorized [id number] Closed 02/16/2021 03/20/2022 100 100 Encounter Details Date Type Department Care Team (Late st Contact Info) Description 03/01/2021 10:20 AM CDT Office Visit [facility] - [facility] [address] [facility], [address] [place] [id number] Franco Kahn MD [address] [place] [address] ANIL KRUGER [id number] Low Testosterone Social History Tobacco Use Types Packs/Day Years Used Date Smoking Tobacco: Former Cigarettes Q uit: 1998 Smokeless Tobacco: Never Tobacco Cessation:Counseling Given: No Alcohol Use Standard Drinks/Week Comments No 0 [...] have Coronavirus / COVID-19? No / Unsure 03/01/2021 9:46 AM CDT documented as of this encounter Last Filed Vital Signs Vital Sign Reading Time Taken Comments Blood Pressure 136/88 03/01/2021 9:53 AM CDT Pulse - - Temperature - - Respiratory Rate - - Oxygen Saturation - - Inhaled Oxygen Concentration - - Weight 103.4 kg (228 lb) 03/01/2021 9:53 AM CDT Height 180.3 cm (5' 11 ) 03/01/2021 9:53 AM CDT Body Mass Index 31.8 03/01/2021 9:53 AM CDT documented in this encounter Progress Notes * Franco Kahn MD - 03/01/2021 10:20 AM CDT 45-year-old male presenting for follow up for irritative and obstructive lower urinary tract symptoms as well as for low serum testosterone. He complains of a decreased force of stream, with incomplete emptying and intermittency. He also complains of urinary frequency and occasional urgency. He is able to sleep through [...] and no longer complains of daytime fatigue. He has gained some weight, and has had to start lisinopril for HTN. He cornejo had some lightheadedness with the medication. Past Medical History: Diagnosis Date ??? Chest pain ??? Hypertension, essential, benign ??? Kidney stones x 2 ??? Sleep apnea Prior to Admission medications Medication Sig Start Date End Date Taking? Authorizing Provider lisinopril 20 MG tablet Take 1 tablet (20 mg total) by mouth daily. 02/15/21 Yes Joel Tanner MD No Known Allergies Past Surgical History: Procedure Laterality Date ??? SHOULDER SURGERY Bilateral torn labrum ??? SINUS SURGERY Social History Tobacco Use ??? Smoking status: Former Smoker Types: Cigarettes Quit date: 1998 Years since quittin.7 ??? Smokeless tobacco: Never Used Substance Use Topics ??? Alcohol use: No ??? Drug use: No Family History Problem Relation Name Age of Onset ??? Lung Cancer Mother ??? Heart Attack Father Review of Systems: As per HPI, otherwise negative on 14 points Objective: Physical Exam: Filed Vitals: 03/01/21 0953 BP: 136/88 Weight: 103.4 kg (228 lb) Height: 5' 11 (1.803 m) Physical Exam Constitutional: Appearance: He is well-developed. HENT: Head: Normocephalic and atraumatic. Eyes: Conjunctiva/sclera: Conjunctivae normal. Cardiovascular: Rate and Rhythm: Normal rate. Pulmonary: Effort: Pulmonary effort is normal. No respiratory distress. Musculoskeletal: General: Normal range of motion. Cervical back: Normal range of motion. Skin: General: Skin is warm. Neurological: General: No focal deficit present. Mental Status: He is alert and oriented to person, place, and time. Psychiatric: Mood and Affect: Mood normal. Behavior: Behavior normal. Labs: TESTOSTERONE, TOTAL: 383 COLOR (U) YELLOW TRANSPARENCY CLEAR GLUCOSE (U) NEGATIVE MG/DL NEGATIVE BILIRUBIN (U) NEGATIVE NEGATIVE U KETONES NEGATIVE MG/DL NEGATIVE Specific [place] (U) 1.001 - 1.035 1.025 BLOOD NEGATIVE NEGATIVE U PH 5.0 - 9.0 7.5 PROTEIN (U) NEGATIVE mg/dL NEGATIVE UROBILINOGEN 0.2 - 1.0 EU/dL = mg/dL 0.2 NITRITES NEGATIVE MG/DL NEGATIVE LEUKOCYTE ESTERASE NEGATIVE NEGATIVE Imaging: No results found. Assessment/Plan: 1. Obstructive [...] range. He is having normal sexual function. His symptoms have improved since starting CPAP. FRANCO KAHN MD documented in this encounter Plan of Treatment Not on file documented as of this encounter Procedures Procedure Name Priority Date/Time Associated Diagnosis Comments URINALYSIS AUTO DIP Routine 03/01/2021 Low testosterone documented in this encounter Results * URINALYSIS AUTO DIP (03/01/2021) COLOR (U) YELLOW [facility] ([address]), [...] [facility] ([address]), [place] U PH 7.5 5.0 - 9.[address] (3), [place] PROTEIN (U) NEGATIVE NEGATIVE mg/dL [facility] (3), [place] UROBILINOGEN 0.2 0.2 - 1.0 EU/dL = mg/dL [facility] (3), [place] NITRITES NEGATIVE NEGATIVE MG/DL [facility] (3), [place] LEUKOCYTES (U) NEGATIVE NEGATIVE [facility] ([address]), [place] URINE SPECIMEN OBTAINED BY CLEAN CATCH PROCEDURE / Unknown 03/01/2021 us Franco Kahn MD URINE ORDERABLES Final Result [facility] (3), [place] [address] [place] [address], documented in this encounter Visit Diagnoses Diagnosis Low testosterone- Primary Other testicular hypofunction Benign prostatic hyperplasia with urinary obstruction documented in this encounter Additional Health Concerns Assessment Noted Time PHQ-9 Depression Total Score: 0 02/16/20 21 5:23 PM CDT documented as of this encounter Care Teams Senior Buyer Planner Relationship Specialty Start Date End Date Joel Tanner MD [address] [facility] 112 [place] [phone] PCP - General FAMILY PRACTICE 05/24/19 02/27/24 Senthil Fisher MD [address] [place] [address] [place] Financial Intern CARDIOVASCULAR DISEASE 05/29/19 documented as of this encounter
--- OUTSIDE RECORDS SUMMARY | 2024-05-20 12:11 | XMS_ITS | Encounter Summary ---
Author Organization [facility] Address [facility]. [address] [place] [address] Care Team Providers Care Judge Name Role Phone Joel Tanner MD Primary Care Provider + Senthil Fisher MD Unavailable [phone] Encounter Details Date Type Department Care Team (Latest Contact Info) Description 12/29/2021 Travel Social History Tobacco Use Types Packs/Day [...] Total Score: 0 06/28/19 22 3:59 PM SEE WHEELER documented as of this encounter Care Teams Judge Relationship Specialty Start Date End Date Joel Tanner MD [address] [facility] 112 [place] [address] PCP - General FAMILY PRACTICE 05/24/19 02/27/24 Senthil Fisher MD Three [facility]. [facility] 1800 [place] [address] Deanne Poker Machine Attendant CARDIOVASCULAR DISEASE 05/29/19 documented as of this encounter
--- OUTSIDE RECORDS SUMMARY | 2024-05-20 12:11 | XMS_ITS | Encounter Summary ---
Author Organization [facility] Address [facility] [place], [place] [address] [place] [address] Care Team Providers Care Marshmallow Machine Worker Name Role Phone Joel Tanner MD Primary Care Provider + Senthil Fisher MD Unavailable [phone] Encounter Details Date Type Department Care Team (Latest Contact Info) Description 03/01/2021 Travel Social History Tobacco Use Types Packs/Day [...] documented as of this encounter Care Teams Marshmallow Machine Worker Relationship Specialty Start Date End Date Joel Tanner MD [address] [facility] 112 [place] [address] PCP - General FAMILY PRACTICE 05/24/19 02/27/24 Senthil Fisher MD [address] [facility]. [facility] [address] [facility] [place] [address] Deanne Rehab Technician CARDIOVASCULAR DISEASE 05/29/19 documented as of this encounter
--- OUTSIDE RECORDS SUMMARY | 2024-05-20 12:11 | XMS_ITS | Encounter Summary ---
Author Organization [facility] Address [facility]6 [facility]. [place], [place] [address] [place] [address] Care Team Providers Care Logistics Account Manager Name Role Phone Joel Tanner MD Primary Care Provider + Senthil Fisher MD Unavailable [phone] Encounter Details Date Type Department Care Team (Late st Contact Info) Description 03/30/2021 [employer] Message [address] [address] [facility] results Social History Tobacco Use Types [...] COVID-19? No / Unsure 03/29/2021 2:32 PM PROGRAMS ASSISTANT documented as of this encounter Plan of Treatment Not on file documented as of this encounter Results * HEPATITIS PANEL,ACUTE (06/03/2021 7:42 AM PROGRAMS ASSISTANT) HEPATITIS B SURFACE AG NON-REACTI VE NON-REACTI VE 06/03/2021 3:42 PM PROGRAMS ASSISTANT [facility] HEP B CORE IGM NON-REACTI VE NON-REACTI VE 06/03/2021 4:08 PM PROGRAMS ASSISTANT [facility] HAV IGM NON-REACTI VE NON-REACTI VE 06/03/2021 4:07 PM PROGRAMS ASSISTANT [facility] HEPATITIS C AB NON-REACTI VE NON-REACTI VE 06/03/2021 4:07 PM PROGRAMS ASSISTANT [facility] 06/03/2021 7:42 AM PROGRAMS ASSISTANT Joel Tanner MD LABORATORY Final Re sult [facility] 3 [place] [address], documented in this encounter Visit Diagnoses Diagnosis LFT elevation- Primary Other abnormal blood chemistry documented in this encounter Additional Health Concerns Assessment Noted Time PHQ-9 Depression Total Score: 0 03/29/20 21 2:54 PM PROGRAMS ASSISTANT documented as of this encounter Care Teams Logistics Account Manager Relationship Specialty Start Date End Date Joel Tanner MD [address] [facility] 112 [place] [address] PCP - General FAMILY PRACTICE 05/24/19 02/27/24 Senthil Fisher MD Three [facility]. [address] [address] Deanne Fund Manager CARDIOVASCULAR DISEASE 05/29/19 documented as of this encounter
--- OUTSIDE RECORDS SUMMARY | 2024-05-20 12:12 | XMS_ITS | Encounter Summary ---
Author Organization [facility] Address [facility] [facility]. [place], [place] [address] [place] [address] Care Team Providers Care Sueding Machine Operator Name Role Phone Unavailable Primary Care Provider Unavailabl e Encounter Details Date Type Department Care Team (Late st Contact Info) Description 06/13/2015 Abstract [facility] Conversion Mao Ribeiro MD [id number] [place] [address] Social History Tobacco Use Types Packs/Day Years Used Date Smoking Tobacco: Never Assessed Sex and Gender Information Value Date Recorded Sex Assigned at Not on file Legal Sex Male 8:30 PM CDT Gender Identity Not on file Sexual Orientation Not on file documented as of this encounter Plan of Treatment Not on file documented as of this encounter Procedures Procedure Name Priority Date/Time Associated Diagnosis Comments LIPID PANEL Routine 06/13/2015 11:49 AM TORCH STRAIGHTENER AND HEATER GLUCOSE BLOOD, QNT Routine 06/13/2015 11 :49 AM TORCH STRAIGHTENER AND HEATER documented in this encounter Results * GLUCOSE BLOOD, QNT (06/13/2015 11:49 AM TORCH STRAIGHTENER AND HEATER) GLUCOSE 97 70 - 99 MG/DL [facility] TO EPIC CONVERSION Comment: DIAGNOSTIC CRITERIA: FASTING SPECIMEN PRE DIABETES: 100-125 MG/DL DIABETES MELLITUS: >125 MG/DL PER ADA GUIDELINES 06/13/2015 11:4 9 AM TORCH STRAIGHTENER AND HEATER 06/13/2015 11:49 AM TORCH STRAIGHTENER AND HEATER Narrative [facility] TO EPIC CONVERSION - 06/13/2015 11:49 AM TORCH STRAIGHTENER AND HEATER [AUTO]: This test was reviewed. us Mao Ribeiro MD LABORATORY Final Result Performing Organization Address City/[facility]/ZIP Co de Phone Number [facility] TO EPIC CONVERSION * (ABNORMAL) LIPID PANEL (06/13/2015 11:49 AM TORCH STRAIGHTENER AND HEATER) CHOLESTEROL 245(H) <200 MG/DL [facility] TO EPIC CONVERSION TRIGLYCERIDES 124 <150 MG/DL [facility] TO EPIC CONVERSION HDL 40(L) >60 MG/DL [facility] T O EPIC CONVERSION Comment:AN HDL OF >60 IS NO RISK, RISK IS DEFINED <40 LDL (CALCULATED) 180(H) <100 MG/DL [facility] TO EPIC CONVERSION Comment: AN LDL OF <100 IS OPTIMAL, ELEVATED IS DEFINED >130 BY CURRENT GUIDELINES, LDL GOALS ARE DEPENDENT UPON OTHER RISK FACTORS 06/13/2015 11:4 9 AM TORCH STRAIGHTENER AND HEATER 06/13/2015 11:49 AM TORCH STRAIGHTENER AND HEATER Narrative [facility] TO EPIC CONVERSION - 06/13/2015 11:49 AM TORCH STRAIGHTENER AND HEATER [Task Forwarded to 1 soni] ldl is pretty high, recommend atorvastatin 20 mg daily and cmp/lipids in 3 mos us Mao Ribeiro MD LABORATORY Final Result Performing Organization Address [facility]/ZIP Co de Phone Number [facility] TO EPIC CONVERSION documented in this encounter Visit Diagnoses Not on filedocumented in this encounter
--- OUTSIDE RECORDS SUMMARY | 2024-05-20 12:12 | XMS_ITS | Encounter Summary ---
Author Organization [facility] Address [facility] [facility]. [place], [place] [address] [place] [address] Care Team Providers Care Fabric Worker Fitter Name Role Phone Unavailable Primary Care Provider Unavailabl e Encounter Details Date Type Department Care Team (Late st Contact Info) Description 06/03/2015 Abstract [facility] Conversion Md, Generic Conversion, Social History Tobacco Use Types Packs/Day Years Used Date Smoking Tobacco: Never Assessed Sex and Gender Information Value Date Recorded Sex Assigned at Not on file Legal Sex Male 8:30 PM CDT Gender Identity Not on file Sexual Orientation Not on file documented as of this encounter Last Filed Vital Signs Vital Sign Reading Time Taken Comments Blood Pressure 128/74 06/03/2015 3:58 PM OSTEOPATHIC NEUROLOGIST Pulse 70 06/03/2015 3:58 PM OSTEOPATHIC NEUROLOGIST Temperature - - Respiratory Rate - - Oxygen Saturation - - Inhaled Oxygen Concentration - - Weight 96.6 kg (213 lb) 06/03/2015 3:58 PM OSTEOPATHIC NEUROLOGIST Height 182.9 cm (6') 06/03/2015 3:58 PM OSTEOPATHIC NEUROLOGIST Body Mass Index 28.89 06/03/2015 3:58 PM OSTEOPATHIC NEUROLOGIST documented in this encounter Progress Notes * Mao Ribeiro MD - 06/03/2015 12:00 AM CST ACTIVE PROBLEMS ? No Active Problems CHIEF COMPLAINT The Chief Complaint is: Check-up Dry skin on right hand. HISTORY OF PRESENT ILLNESS Guzman Villagran is a 39 year old male. New pt main co is itchy dry rash on left hand mainly dorsal sfc, otc really not helping, no specific exposures and no annular appearance co knee pain on lt, has an orthopedist he follows w and known partial tear but holding off on any surgery etc at this time. PAST MEDICAL/SURGICAL HISTORY Bilat shoulder surgeries, (tears, labrum etc) rad and sp meningiits as a child hx kidney stones x2 partial acl tear lt knee following w ortho nonsurgical for now. SOCIAL HISTORY Behavioral: Current smoker. Smoking status: Former smoker. Alcohol: Not using alcohol. ALLERGIES ? No Known Allergies FAMILY HISTORY No family history of cancer No family history of heart disease No diabetes mellitus No stroke syndrome REVIEW OF SYSTEMS Systemic: No systemic symptoms. Head: No head symptoms. Neck: No neck symptoms. Otolaryngeal: No otolaryngeal symptoms. Pulmonary: No pulmonary symptoms. Gastrointestinal: No gastrointestinal symptoms. PHYSICAL FINDINGS ? Vitals taken 06/03/2015 03:58 pm BP-Sitting R 128/74 mmHg BP Cuff Size Large Pulse Rate-Sitting 70 bpm Pulse Rhythm Regular Respiration Rate 20 per min Temp-Oral 98.1 F Height 72 in Weight 213 lbs Body Mass Index 28.9 kg/m2 Body Surface Area 2.19 m2 Oxygen Saturation 98 % General Appearance: ?? Well developed. ?? Well nourished. ?? In no acute distress. Neck: Suppleness: ?? Neck demonstrated no decrease in suppleness. Trachea: ?? Midline. Thyroid: ?? Showed no abnormalities. Eyes: General/bilateral: Extraocular Movements: ?? Normal EOM. ?? Normal EOM. Sclera: ?? Showed no icterus. Ears: General/bilateral: External Auditory Canal: ?? External auditory meatus normal. Nose: General/bilateral: Discharge: ?? No nasal discharge seen. Cavity: ?? Nasal turbinate not swollen. Sinus Tenderness: ?? No sinus tenderness. Pharynx: Oropharynx: ?? Normal. Lymph Nodes: ?? Normal. Lungs: ?? No wheezing was heard. ?? No rhonchi were heard. ?? No rales/crackles were heard. Cardiovascular: Jugular Venous Distention: ?? JVD not increased. Heart Rate And Rhythm: ?? Normal. Heart Sounds: ?? Normal. Murmurs: ?? No murmurs were heard. Apical Impulse: ?? Normal. Thrill: ?? No thrill. Arterial Pulses: ?? Equal bilaterally and normal. Back: ?? Normal. Abdomen: Auscultation: ?? Bowel sounds were normal. Palpation: ?? No abdominal guarding. ?? Abdominal non-tender. Liver: ?? Not enlarged. Spleen: ?? Not enlarged. Neurological: Balance: ?? Normal. Gait And Stance: ?? Normal. Eczematous changes dorsal left hand. ASSESSMENT ? Atopic dermatitis [L20.9 - Atopic dermatitis, unspecified] --mainly hand, probable dry skin component THERAPY ? Continue current medication. ? Clinical summary provided to patient. PLAN ? OTHER Clobetasol Propionate 0.05 % OINT, Apply to affected area twice a day as needed, 30 days, 5 refills ? Encntr for general adult medical exam w/o abnormal findings Lab: GLUCOSE Lab: Lipid profile ? Return to the clinic if condition worsens or new symptoms arise Update his rout labs trial of clob oint for up to 2 weeks at a time--if no better after that then consider tinea manuum but not classic appearance at this time hydrate well given hx kidney stones see also new pt intake form in images. HEALTH REMINDERS ? Assess Alcohol Use satisfied 06/03/2015. ? Assess Tobacco Use satisfied 06/03/2015. ? Blood Pressure Measurement satisfied 06/03/2015. ? Cholesterol Screening satisfied 06/03/2015. ? Obesity Screening and Counseling satisfied 06/03/2015. ? Risk Assessment Diabetes/Pre-diabetes satisfied 06/03/2015. Mao Ribeiro MD Electronically signed by: Colin Ribeiro MD Date: 06/03/2015 16:42 OPATHIC NEUROLOGIST documented in this encounter Plan of Treatment Not on file documented as of this encounter Visit Diagnoses Not on filedocumented in this encounter
--- OUTSIDE RECORDS SUMMARY | 2024-05-20 12:12 | XMS_ITS | Encounter Summary ---
Author Organization [facility] Address [facility]6 [facility]. [place], [place] [address] [place] [address] Care Team Providers Care Switch Adjuster Name Role Phone Joel Tanner MD Primary Care Provider + Senthil Fisher MD Unavailable [phone] Encounter Details Date Type Department Care Team (Late st Contact Info) Description 06/07/2019 Scan [facility] at [address] [address] Scanned, Documents Social History Tobacco Use Types Packs/Day Years Used Date Smoking Tobacco: Former Cigarettes Q uit: 1998 Smokeless Tobacco: Never Comments:pt quit 20 years ag o Alcohol Use Standard Drinks/Week Comments Yes 0 (1 standard drink = 0.6 oz pur e alcohol) rare, social, 2 beers a week. Sex and Gender Information Value Date Recorded [...] Procedure Name Priority Date/Time Associated Diagnosis Comments ECG GENERIC (SCAN ORDER) Routine 04/15/2019 documented in this encounter Results * ECG (04/15/2019) us Documents Scanned SCANNING Final Result documented in this encounter Visit Diagnoses Not on filedocumented in this encounter Care Teams Switch Adjuster Relationship Specialty Start Date End Date Joel Tanner MD [address] [facility] 112 [place] [address] PCP - General FAMILY PRACTICE 05/24/19 02/27/24 Senthil Fisher MD Three [facility]. [address] [place] [address] Deanne Analysis Engineer CARDIOVASCULAR DISEASE 05/29/19 documented as of this encounter
--- OUTSIDE RECORDS SUMMARY | 2024-05-20 12:12 | XMS_ITS | Encounter Summary ---
Author Organization [facility] Address [facility]6 [facility]. [place], [place] [address] [place] [address] Care Team Providers Care Data Capture Specialist Name Role Phone Unavailable Primary Care Provider Unavailabl e Encounter Details Date Type Department Care Team (Late st Contact Info) Description 12/05/2016 Abstract [facility] Conversion Md, Generic Conversion, [...]
--- OUTSIDE RECORDS SUMMARY | 2024-05-20 12:12 | XMS_ITS | Encounter Summary ---
Author Organization [facility] Address [facility]6 [facility]. [place], [place] [address] [place] [address] Care Team Providers Care Business Teacher Name Role Phone Unavailable Primary Care Provider Unavailabl e Encounter Details Date Type Department Care Team (Late st Contact Info) Description 03/25/2017 Scan [place] [address] , Generic Conversion, Social History Tobacco Use Types [...]
--- OUTSIDE RECORDS SUMMARY | 2024-05-20 12:12 | XMS_ITS | Encounter Summary ---
Author Organization [facility] Address [facility]. [place], [place] [id number] [place] [id number] Care Team Providers Care Crm System Administrator Name Role Phone Joel Stinson MD Primary Care Provider + Senthil Fisher MD Unavailable [phone] Reason for Visit * Reason Comments Follow Up bp meds Rib Pain after a fall Encounter Details Date Type Department Care Team (Late st Contact Info) Description 06/13/2019 4:20 PM PROOF INSPECTOR Office Visit [facility] [address] [address] Joel Stinson MD [address] [facility] [address] [place] [address] Follow Up (bp meds); Rib Pain (after a fall) Social History Tobacco Use Types Packs/Day Years [...] Sign Reading Time Taken Comments Blood Pressure 136/74 06/13/2019 4:29 PM PROOF INSPECTOR Pulse 71 06/13/2019 4:29 PM PROOF INSPECTOR Temperature 36.6 ??C (97.9 ??F) 06/13/2019 4:29 PM CS T Respiratory Rate 20 06/13/2019 4:29 PM PROOF INSPECTOR Oxygen Saturation 93% 06/13/2019 4:29 PM PROOF INSPECTOR Inhaled Oxygen Concentration - - Weight 99.8 kg (220 lb) 06/13/2019 4:29 PM PROOF INSPECTOR Height 180.3 cm (5' 11 ) 06/13/2019 4:29 PM PROOF INSPECTOR Body Mass Index 30.68 06/13/2019 4:29 PM PROOF INSPECTOR documented in this encounter Patient Instructions * Patient Instructions* Joel Stinson MD - 06/13/2019 4:20 PM PROOF INSPECTOR Continue current medication and recheck in three months. Recheck testosterone. Will also check urine. Symptomatic treatment for ribs. F INSPECTOR documented in this encounter Progress Notes * Joel Stinson MD - 06/13/2019 4:20 PM CST Chief Complaint: Follow Up (bp meds) and Rib Pain (after a fall) HPI: Guzman Villagran is a 43-year-old male here for follow-up on hypertension with no problems with current medication. He does complains of some fatigue and states testosterone has been borderline lowin the past. He also states he fell a few weeks ago and still having pain to right side of chest. ROS: Review of Systems Constitutional: Positive for malaise/fatigue. Negative for fever. HENT: Negative for sore throat. Respiratory: Negative for cough and shortness of breath. Cardiovascular: Negative for palpitations. Gastrointestinal: Negative for abdominal pain. Neurological: Negative for dizziness and headaches. Physical Exam Constitutional: He is well-developed, well-nourished, and in no distress. HENT: Mouth/Throat: Oropharynx is clear and moist. Eyes: Conjunctivae are normal. Neck: Neck supple. No thyromegaly present. Cardiovascular: Normal rate and regular rhythm. Pulmonary/Chest: Effort normal. He exhibits tenderness (to right lateral chest wall without skin changes.). Abdominal: Soft. There is no tenderness. Musculoskeletal: He exhibits no edema. Lymphadenopathy: He has no cervical adenopathy. Current Outpatient Medications Medication Sig ??? lisinopril [...] Last attempt to quit: 1998 Years since quittin.0 ??? Smokeless tobacco: Never Used Substance Use Topics ??? Alcohol use: No Frequency: 2-4 times a month Family History Problem Relation Name Age of Onset ??? Lung Cancer Mother ??? Heart Attack Father Vitals: 06/13/19 1629 BP: 136/74 BP Location: Right arm Patient Position: Sitting Cuff size: Adult Long Pulse: 71 Temp: 97.9 ??F (36.6 ??C) TempSrc: Oral Weight: 99.8 kg (220 lb) Height: 5' 11 (1.803 m) Diagnoses/Impression: Hypertension, unspecified type (primary encounter diagnosis) Fatigue, unspecified type Rib pain on right side Urinary urgency Recommendations and Plan: Orders Placed This Encounter ??? TESTOSTERONE, TOTAL Standing Status: Future Standing Expiration Date: 06/12/2020 ??? URINALYSIS WI REFLEX TO CULTURE Standing Status: Future Standing Expiration Date: 06/13/2020 ??? DISCONTD: lisinopril 20 MG tablet Sig: Take 1 tablet (20 mg total) by mouth daily. Dispense: 30 tablet Refill: 0 ??? lisinopril 20 MG tablet Sig: Take 1 tablet (20 mg total) by mouth daily. Dispense: 90 tablet Refill: 0 Patient Instructions Continue current medication and recheck in three months. Recheck testosterone. Will also check urine. Symptomatic treatment for ribs. JOEL STINSON MD Referring Provider: Self Referral PCP: JOEL STINSON MD F INSPECTOR documented in this encounter Plan of Treatment Not on file documented as of this encounter Results * (ABNORMAL) URINALYSIS WI REFLEX TO CULTURE (06/17/2019 7:50 AM PROOF INSPECTOR) COLOR (U) YELLOW 06/17/2019 12:04 PM [facility] TRANSPARENCY CLEAR 06/17/2019 12:04 PM [facility] SPECIFIC GRAVITY (U) 1.025 1.002 - 1.030 06/17/2019 12:04 PM [facility] U PH 5.0 4.5 - 8 06/17/2019 12:04 PM [facility] LEUKOCYTES (U) NEGATIVE NEGATIVE 06/17/2019 12:04 PM [facility] NITRITES NEGATIVE NEGATIVE 06/17/2019 12:04 PM [facility] PROTEIN (U) NEGATIVE NEGATIVE 06/17/2019 12:04 PM [facility] URINE GLUCOSE NEGATIVE NEGATIVE 06/17/2019 12:04 PM [facility] KETONES MG/DL (U) 4+(A) NEGATIVE 06/17/2019 12:[address] [facility] UROBILINOGEN NORMAL NORMAL EU/DL 06/17/2019 12:04 PM [facility] BILIRUBIN (U) NEGATIVE NEGATIVE 06/17/2019 12:04 PM [facility] BLOOD (U) NEGATIVE NEGATIVE 06/17/2019 12:04 PM [facility] CULTURE & SENSITIVITY INDICATED? CULTURE IS NOT INDICATED 06/17/2019 12:04 PM [facility] EPI/HPF 0-5 /HPF 06/17/2019 12:04 PM [facility] BACTERIA (U) TRACE /HPF 06/17/2019 12:04 PM PROOF INSPECTOR [facility] MUCUS 1+ 06/17/2019 12:04 PM PROOF INSPECTOR [facility] AMORPHOUS SEDIMENT 1+ 06/17/2019 12:04 PM PROOF INSPECTOR [facility] URINE SPECIMEN OBTAINED BY CLEAN CATCH PROCEDURE / Unknown 06/17/2019 7:50 AM PROOF INSPECTOR Joel Stinson MD URINE ORDERABLES Final R esult Performing Organization Address City/[facility]/ZIP Co de Phone Number [facility] [address] [id number], * TESTOSTERONE, TOTAL (06/17/2019 7:04 AM PROOF INSPECTOR) TESTOSTERONE TOTAL 383 250 - 1,100 ng/dL 06/19/2019 10:58 PM PROOF INSPECTOR [facility] [place] [place] Comment: For additional information, please refer to http://education.WallStrip/faq/ [email or web address] (This link is being provided for informational/ educational purposes only.) This test was developed and its analytical performance characteristics have been determined by [employer] [place], [place]. It has not been cleared or approved by the U.S. Food and Drug Administration. This assay has been validated pursuant to the CLIA regulations and is used for clinical purposes. Test Performed by [employer], [employer] [place], [address] [place], [place] Darnell Bello M.D., Ph.D., Director of Laboratories , CLIA [id number] 06/17/2019 7:04 AM PROOF INSPECTOR Joel Stinson MD LABORATORY Final Re sult Performing Organization Address City/[facility]/ZIP Co de Phone Number [facility] [address] [place] [address], documented in this encounter Visit Diagnoses Diagnosis Hypertension, unspecified type- Primary Fatigue, unspecified type Rib pain on right side Chest pain, unspecified Urinary urgency Urgency of urination documented in this encounter Care Teams Crm System Administrator Relationship Specialty Start Date End Date Joel Stinson MD [address] [facility] [address] [place] [address] PCP - General FAMILY PRACTICE 05/24/19 02/27/24 Senthil Fisher MD Three [facility]. [facility] [address] [place] [address] Deanne Closer On CARDIOVASCULAR DISEASE 05/29/19 documented as of this encounter
--- OUTSIDE RECORDS SUMMARY | 2024-05-20 12:12 | XMS_ITS | Encounter Summary ---
Author Organization [facility] Address [facility]. [place], [place] [address] [place] [address] Care Team Providers Care Electronic Scale Subassembler Name Role Phone Unavailable Primary Care Provider Unavailabl e Encounter Details Date Type Department Care Team (Late st Contact Info) Description 09/14/2015 Abstract [facility] Conversion Mao Ribeiro MD [id number] [place] [address] Social History Tobacco Use Types Packs/Day Years Used Date Smoking Tobacco: Never Assessed Sex and Gender Information Value Date Recorded Sex Assigned at Not on file Legal Sex Male 8:30 PM CDT Gender Identity Not on file Sexual Orientation Not on file documented as of this encounter Progress Notes * Mao Ribeiro MD - 09/14/2015 12:00 AM CDT Date: 09/14/2015 Name: Guzman Villagran : 1975 Age: 40 Telephone conversation with patient regarding lab results from 09/14/15-per Dr. Ribeiro results of lipids much better but liver enzymes have bumped up a bit and to decrease Lipitor to 10mg daily then repeat CMP and lipids in 2-3 months. Note entered by Jeanette Osorio RN IFIED TEACHER ASSISTANT documented in this encounter Plan of Treatment Not on file documented as of this encounter Procedures Procedure Name Priority Date/Time Associated Diagnosis Comments COMPREHENSIVE METABOLIC PANEL Routine 09/14/2015 7:17 AM CDT LIPID PANEL Routine 09/14/2015 7:17 AM CDT documented in this encounter Results * (ABNORMAL) LIPID PANEL (09/14/2015 7:17 AM CDT) CHOLESTEROL 179 <200 MG/DL [facility] CON[facility] TRIGLYCERIDES 125 <150 MG/DL [facility] CON[facility] HDL 36(L) >60 MG/DL [facility] O EPIC CONVERSION Comment:AN HDL OF >60 IS NO RISK, RISK IS DEFINED <40 LDL (CALCULATED) 118(H) <100 MG/DL [facility] CONVERSION Comment: AN LDL OF <100 IS OPTIMAL, ELEVATED IS DEFINED >130 BY CURRENT GUIDELINES, LDL GOALS ARE DEPENDENT UPON OTHER RISK FACTORS 09/14/2015 7:17 AM CDT 09/14/2015 7:17 AM CDT Narrative [facility] TO [facility] CONVERSION - 09/14/2015 7:17 AM CDT [Task Forwarded to [address] [place] [address]] lipids are much better on the lipitor but lft have bumped up slightly, recommedn decreasing lipitor to 10 mg daily and repeat cmp and lipids in 2-3 mos Mao Ribeiro MD LABORATORY Final Result [facility] CONVERSION * (ABNORMAL) COMPREHENSIVE METABOLIC PANEL (09/14/2015 7:17 AM CDT) GLUCOSE 110(H) 70 - 99 MG/DL [facility] TO [facility] CONVERSION BUN 20 8.9 - 20.6 MG/DL [facility] TO [facility] CONVERSION CREATININE S/P/B 0.88 0.60 - 1.10 MG/DL [facility] TO EPIC CONVERSION SODIUM S/P/B 140 136 - 145 MMOL/L [facility] TO [facility] CONVERSION POTASSIUM S/P/B 4.1 3.5 - 5.1 MMOL/L [facility] CONVERSION CHLORIDE S/P/B 105 98 - 107 MMOL/L [facility] TO [facility] CONVERSION TCO2 25.0 22 - 29 MMOL/L [facility] CONVERSION CALCIUM S/P/B 9.2 8.4 - 10.2 MG/DL [facility] CONVERSION BILIRUBIN TOTAL S/P/B 2.4(H) 0.2 - 1.2 MG/DL [facility] CONVERSION TOTAL PROTEIN S/P/B 6.9 6.4 - 8.3 G/DL [facility] CONVERSION ALBUMIN S/P/B 4.6 3.5 - 5.0 G/DL [facility] CONVERSION AST 30 5 - 34 UNITS/L [facility] CONVERSION ALT 77(H) 0 - 41 UNITS/L [facility] CONVERSION ALKALINE PHOSPHATASE S/P/B 80 40 - 115 UNITS/L [facility] TO [facility] CONVERSION ANION GAP 10.0 0 - 24 MMOL/L [facility] TO [facility] CONVERSION BUN CREATININE RATIO 22.7 6 - 26 [facility] TO [facility] CONVERSION OSMOLALITY (CALC) 283(H) 261 - 280 MOSM/KG [facility] TO [facility] CONVERSION A/G RATIO 2.0(H) 1.1 - 1.9 RATIO [facility] TO [facility]IC CONVERSION EGFR NON-AFR. AMER. >60 >60 ML/MIN/1.7 3 M2 [facility] TO EPIC CONVERSION EGFR AFR. AMER. >60 >60 ML/MIN/1.7 3 M2 [facility] TO EPIC CONVERSION 09/14/2015 7:17 AM CDT 09/14/2015 7:17 AM CDT Narrative [facility] TO EPIC CONVERSION - 09/14/2015 7:17 AM CDT [AUTO]: This test was reviewed. Mao Ribeiro MD LABORATORY Final Result [facility] TO [facility] CONVERSION documented in this encounter Visit Diagnoses Not on filedocumented in this encounter
--- OUTSIDE RECORDS SUMMARY | 2024-05-20 12:12 | XMS_ITS | Encounter Summary ---
Author Organization [facility] Address [facility]6 [facility]. [place], [place] [address] [place] [address] Care Team Providers Care Head Baker Name Role Phone Joel Stinson MD Primary Care Provider + Senthil Fisher MD Unavailable [phone] Reason for Referral * Procedure (Routine) - Closed Specialty Diagnoses / Procedures Referred By Contac t Referred To Contact CARDIOLOGY Diagnoses Precordial pain Procedures STRESS TEST ONLY, EXERCISE ([id number]) Senthil Fisher MD [address] [address] Phone: tel: fax: [address] [address] Phone: tel: Referral ID Status Reason Start Date Expiration Date Visits Re quested Visits Authorized [id number] Closed 06/05/2019 07/25/2019 1 1 R COVERING LAYER Reason for Visit * Reason Comments Consult chest pain * Consultation (Routine) - Closed Specialty Diagnoses / Procedures Referred By Contact Referred To Contact CARDIOLOGY / Cardiology Diagnoses Chest pain, unspecified type Joel Stinson MD [address] [address] Phone: tel:[phone] fax:[phone] [facility] [address] [place] [address] Phone: tel: fax: Referral ID Status Reason Start Date Expiration Date V isits Requested Visits Authorized [id number] Closed Specialty Services 05/13/2019 06/11/2020 99 [phone] Encounter Details Date Type Department Care Team (Late st Contact Info) Description 06/05/2019 2:15 PM FLOOR COVERING LAYER Office Visit [facility] [address] [place] [id number] Senthil Fisher MD [address] [facility]. [address] [address] Consult (chest pain) Social History Tobacco Use Types Packs/Day Years Used Date Smoking Tobacco: Former Cigarettes Q uit: 1998 Smokeless Tobacco: Never Comments:pt quit 20 years ag o Alcohol Use Standard Drinks/Week Comments Yes 0 (1 standard drink = 0.6 oz pur e alcohol) rare, social, 2 beers a week. AUDIT-C Answer Date Recorded Frequency of Alcohol [...] Sign Reading Time Taken Comments Blood Pressure 130/80 06/05/2019 2:19 PM FLOOR COVERING LAYER Pulse 70 06/05/2019 2:19 PM FLOOR COVERING LAYER Temperature - - Respiratory Rate - - Oxygen Saturation - - Inhaled Oxygen Concentration - - Weight 99.8 kg (220 lb) 06/05/2019 2:19 PM FLOOR COVERING LAYER Height 180.3 cm (5' 11 ) 06/05/2019 2:19 PM FLOOR COVERING LAYER Body Mass Index 30.68 06/05/2019 2:19 PM FLOOR COVERING LAYER documented in this encounter Patient Instructions * Patient Instructions* Davin Champion - 06/05/2019 2:15 PM FLOOR COVERING LAYER Images from the original note were not included. Patient Education Patient Education Chest Pain About this topic Chest pain is felt in the upper part of your body from your neck to your belly. You may feel pain, pressure, or tightness. Your heart and lungs are common sources of pain. You can also have pain fromyour chest muscles or the tendons and nerves in your chest. Your chest pain may be caused by a serious health problem or by something not as serious. Your doctor may use tests to record your heartbeats, use x-rays, or take your blood pressure to understand your chest pain. Treatment will depend on what is causing your chest pain. What are the causes? Some of the problems related to your heart include: ?? Heart attack. This is a blockage of blood supply to part of the heart. ?? Angina. This is similar to a heart attack, but without long-lasting heart damage. ?? Arrhythmia. This is abnormal heartbeats. ?? Pericarditis. This is irritation of the sac around the heart. Some of the problems that may not be related to your heart include: ?? Digestive problems like ulcers, indigestion, gastric reflux, gallstones ?? Lung problems like collapsed lung, blood clots, asthma, pneumonia ?? Rib injuries or muscle pain ?? Panic attack ?? Pinched nerve ?? Shingles What are the main signs? ?? Chest pain of any type should be checked by a doctor. ?? Signs that may show a more serious cause of chest pain are: ? Squeezing or tightness in the chest which may spread to the back, neck, jaw, shoulders, or arms ? Shortness of breath ? Sweating ? Dizziness ? Upset stomach, nausea, or throwing up ? Weakness ? Feeling faint ?? If you have chest pain with any of these signs, call for emergency help. How does the doctor diagnose this health problem? Your doctor will do an exam. The doctor may ask you questions about your pain. Your doctor may order: ?? Lab tests ?? Chest x-ray ?? Electrocardiogram (ECG) ?? Echocardiogram ?? Stress test ?? Nuclear heart scanning ?? Computed tomography (CT) ?? Heart cath or catheterization How does the doctor treat this health problem? Your treatment will depend on what is causing the pain. Many times, drugs may be given to treat theproblem. Any chest pain could be serious. More serious problems can be treated by opening the vessel in your heart with a balloon or a metal straw called a stent. You may need surgery to replace the vessels in your heart. Always talk to your doctor about chest pain. What lifestyle changes are needed? Once your doctor finds the cause of your chest pain, you may be asked to make changes to your diet,activity, weight, and drugs you take. These changes will depend on the cause of your pain. What drugs may be needed? If chest pain is caused by a heart-related problem, the doctor may order drugs to: ?? Thin the blood ?? Dissolve a blood clot ?? Lower cholesterol ?? Lessen the work of your heart ?? Correct or prevent an abnormal heartbeat ?? Lower your blood pressure ?? Increase blood flow to the heart muscle ?? Relax the heart and help avoid spasms in the arteries If chest pain is caused by a something other than your heart, the doctor may order drugs to: ?? Help with pain ?? Treat stomach problems ?? Help with breathing ?? Help you relax ?? Control coughing What problems could happen? If the pain is due to a serious problem with the heart or lungs, the following things could happen: ?? Heart attack with long-lasting damage to the heart ?? Abnormal heartbeat that is too fast, too slow, or irregular ?? The heart stops beating. This is cardiac arrest. If not promptly treated, it can result in . What can be done to prevent this health problem? ?? If you smoke, stop. ?? Keep a healthy weight. If you are too heavy, lose weight. ?? Keep blood pressure, cholesterol, and high blood sugar (diabetes) under control. ?? Exercise at least 3 to 4 times a week. ?? Eat lots of fiber, fruits, starches, and vegetables and stay away from foods that are high in fats. When do I need to call the doctor? Activate the emergency medical system right away if you have signs of a heart attack. Call 911 in the [place] or [place]. The sooner treatment begins, the better your chances for recovery. Call for emergency help right away if you have: ?? Signs of heart attack: ? Chest pain ? Trouble breathing ? Fast heartbeat ? Feeling dizzy ?? Not had chest pain before and it does not go away with rest after [address] yourself to the hospital or have someone drive you. The emergency rescue people can begin to treat you theminute they arrive. If your doctor has given you nitroglycerin for heart pain, sit or lie down. ?? Place a pill under your tongue and allow it to dissolve. If your mouth is dry, take a small sip of water. ?? Wait 5 minutes and if the chest pain does not go away, call for help and put a second nitro pillunder your tongue. ?? Sometimes, your doctor will tell you to take a third pill after another 5 minutes. Where can I learn more? [employer] http://www.heart.org/HEARTORG/Conditions/HeartAttack/AboutHeartAttacks/About-Hea rt-Attacks_UCM_002038_Article.jsp [employer] http://www.heart.org/HEARTORG/Conditions/HeartAttack/SymptomsDiagnosisofHeartAtt ack/Krooqk-Bgnma-Gusw_MOM_415921_Njugsuy.jsp FamilyDoctor.org http://familydoctor.org/familydoctor/en/diseases-conditions/angina.printerview.a ll.html NHS Choices https://www.nhs.uk/conditions/chest-pain/ Last Reviewed Date 2017-11-15 Consumer Information Use and Disclaimer This information [...] or not to accept your health care provider???s advice, instructions or recommendations. Only your health care provider has the knowledge and training to provide advice that is right for you. Copyright Copyright ?? 2019 [employer] and its affiliates and/or licensors. All rights reserved. R COVERING LAYER documented in this encounter Progress Notes * Senthil Fisher MD - 06/05/2019 3:30 PM CST REASON FOR CONSULTATION: Recommendation, evaluation, and management of patient complaining of chestpain. HISTORY OF PRESENT ILLNESS: This is a 43-year-old gentleman who has no known history of coronary disease, no history of valvular heart disease. He does have a family history of father having a myocardial infarction at the age of 60. Patient has a history of hyperlipidemia which has been untreated. His most recent lipids from 2017 shows total cholesterol of 260, triglycerides 183, HDL of 47 and LDL of 176. The patient's electrocardiogram demonstrates normal sinus rhythm, normal axis, normal intervals. The patient had one significant episode of chest pain. He was evaluated in the emergency room at [facility]. He had negative cardiac enzymes and was discharged. He has really had no other significant chest discomfort since then. He does note that his blood pressures were somewhat elevated previously. His Lisinopril has been increased and his blood pressures are improved. Patient does have a fairly physically demanding job. He does do regular exercise. He has really hadno significant chest pain since then. He denies any heart failure symptoms. He has had no increasing lower extremity edema. He was a prior smoker, but no longer. Patient quit when he was 25. IMPRESSION AND RECOMMENDATION: Chest pain. The patient is 43. He is currently not on therapy pending a lipid panel. I would like him to have a stress test to rule out any evidence of ischemia, as the patient does have a fairly physically demanding job and does do regular exercise. The patient will follow up with me in June. Certainly if he has any concerning findings for ischemia, then we will need a left heart catheterization, possible CTA. I discussed with him Aspirin therapy. For now, I am going to hold off. Additionally, unclear whether he is going to need to be on a statin, again would like to see what the findingof his stress test is before making a decision about statin therapy. R COVERING LAYER * Senthil Fisher MD - 06/05/2019 2:15 PM CST Reason for Visit: Consult (chest pain) Medications: Current Outpatient Medications: ??? lisinopril 20 MG tablet, Take 1 tablet (20 mg total) by mouth daily., Disp: 30 tablet, Rfl: 0 No Known Allergies Past Medical History: Diagnosis Date ??? Hypertension, essential, benign ??? Kidney stones x 2 ??? Sleep apnea Past Surgical History: Procedure Laterality Date ??? SHOULDER SURGERY Bilateral torn labrum Social History Tobacco Use ??? Smoking status: Former Smoker Types: Cigarettes Last attempt to quit: 1998 Years since quittin.0 ??? Smokeless tobacco: Never Used ??? Tobacco comment: pt quit 20 years ago Substance Use Topics ??? Alcohol use: Yes Comment: rare, social, 2 beers a week. ??? Drug use: No Family History Problem Relation Name Age of Onset ??? Lung Cancer Mother ??? Heart Attack Father Family Status Relation Name Status ??? Mother ??? Father Review of Systems Constitutional: Negative for recent unintentional weight gain, recent unintentional weight loss andnew or significant fatigue. HENT: Negative for new or significant hearing loss. Eyes: Negative for blurred vision and double vision. Respiratory: Negative for cough, new or significant shortness of breath and snoring. Cardiovascular: See HPI Positive for chest pain.Negative for palpitations, orthopnea and claudication. Gastrointestinal: Negative for blood in stool and melena. Genitourinary: Negative for dysuria. Musculoskeletal: Negative for myalgias and new or worsening joint stiffness/pain. Skin: Negative for rash. Neurological: Negative for tingling/numbness and focal weakness. Endo/Heme/Allergies: Negative for new or significant bruising/bleeding and polydipsia. Psychiatric/Behavioral: Negative for depression and new or significant memory loss. Filed Vitals: 06/05/19 1419 BP: 130/80 Pulse: 70 Weight: 99.8 kg (220 lb) Height: 5' 11 (1.803 m) Body mass index is 30.68 kg/m??. Physical Exam Rate/Rhythm: regular rhythm and normal [...] Musculoskeletal: no kyphosis normal ROM Cardiovascular Comments: The ASCVD Risk score (Sanjiv DC Jr., et al., 2013) failed to calculate for the following reasons: Cannot find a previous total cholesterol lab Diagnoses/Impression: 1. Chest pain STRESS TEST ONLY, EXERCISE Referring Provider: Joel Stinson PCP: JOEL STINSON MD R COVERING LAYER documented in this encounter Plan of Treatment Not on file documented as of this encounter Results * STRESS TEST ONLY, EXERCISE ([id number]) (06/26/2019 6:55 PM FLOOR COVERING LAYER) 06/26/2019 6:55 PM FLOOR COVERING LAYER Narrative ESCRIPTION - 06/28/2019 12:19 PM FLOOR COVERING LAYER INDICATION: ??Chest pain. PROCEDURE: ??Patient exercised on [...] for myocardial event. D: ??06/26/2019 06:55 PM #[id number] T: ??06/26/2019 08:03 PM /NTS Procedure Note [...] study is low risk for myocardial event. #[id number] /NTS us Senthil Fisher MD [facility] ORDERABLES Final Result ESCRIPTION documented in this encounter Visit Diagnoses Diagnosis Precordial pain- Primary Hypertension, essential, benign Essential hypertension, benign Precordial pain documented in this encounter Care Teams Head Baker Relationship Specialty Start Date End Date Joel Stinson MD [address] [facility] [address] [place] [address] PCP - General FAMILY PRACTICE 05/24/19 02/27/24 Senthil Fisher MD Three [facility]. [facility] [address] [place] [address] Deanne Ticketing Clerk CARDIOVASCULAR DISEASE 05/29/19 documented as of this encounter
--- OUTSIDE RECORDS SUMMARY | 2024-05-20 12:12 | XMS_ITS | Encounter Summary ---
Author Organization [facility] Address [facility] [place] [facility]. [place], [place] [address] [place] [address] Care Team Providers Care Video Specialist Name Role Phone Unavailable Primary Care Provider Unavailabl e Encounter Details Date Type Department Care Team (Late st Contact Info) Description 06/13/2015 Abstract [facility] [address] [place] [address] Mao Ribeiro MD [address] [facility] [id number] [place] [address] Social History Tobacco Use Types Packs/Day Years Used Date Smoking Tobacco: Never Assessed Sex and Gender Information Value Date Recorded Sex Assigned at Not on file Legal Sex Male 8:30 PM CDT Gender Identity Not on file Sexual Orientation Not on file documented as of this encounter Plan of Treatment Not on file documented as of this encounter Visit Diagnoses Diagnosis Encounter for general adult medical examination without abnormal findings Unspecified general medical examination documented in this encounter
--- OUTSIDE RECORDS SUMMARY | 2024-05-20 12:12 | XMS_ITS | Encounter Summary ---
Author Organization [facility] Address [facility]6 [facility]. [place], [place] [address] [place] [address] Care Team Providers Care Road Manager Name Role Phone Unavailable Primary Care Provider Unavailabl e Encounter Details Date Type Department Care Team (Late st Contact Info) Description 11/17/2016 Abstract [facility] Conversion Md, Generic Conversion, Social History [...] Sign Reading Time Taken Comments Blood Pressure 116/64 11/17/2016 4:41 PM CDT Pulse 69 11/17/2016 4:41 PM CDT Temperature - - Respiratory Rate - - Oxygen Saturation - - Inhaled Oxygen Concentration - - Weight 91.2 kg (201 lb) 11/17/2016 4:41 PM CDT Height 181.6 cm (5' 11.5 ) 11/17/2016 4:41 PM CD T Body Mass Index 27.64 11/17/2016 4:41 PM CDT documented in this encounter Progress Notes * Mao Ribeiro MD - 11/17/2016 12:00 AM CDT ACTIVE PROBLEMS ? No Active Problems CHIEF COMPLAINT The Chief Complaint is: Yearly evaluation. HISTORY OF PRESENT ILLNESS Guzman Villagran is a 41 year old male. Here for wellness doing fine, conts to have probs w hand eczema and doesnt like the clob oint; made appt w derm for next week thru ins no cp sob or millard been working on diet wants to know what he needs for screening some fatigue and dec libido and wants testosterone checked also some occ weak urine stream but no luts that are too disturbing for him. CURRENT MEDICATION ? Clobetasol Propionate 0.05 % Ointment Apply to affected area twice a day as needed, 30 days, 5 refills PAST MEDICAL/SURGICAL HISTORY Bilat shoulder surgeries, (tears, labrum etc) rad and sp meningiits as a child hx kidney stones x2 partial acl tear lt knee following w ortho nonsurgical for now. SOCIAL HISTORY Behavioral: Not a current smoker and smoking status: Never smoker. ALLERGIES ? No Known Allergies FAMILY HISTORY No family history of cancer PHYSICAL FINDINGS ? Vitals taken 11/17/2016 04:41 pm BP-Sitting L 116/64 mmHg BP Cuff Size Regular Pulse Rate-Sitting 69 bpm Pulse Rhythm Regular Respiration Rate 20 per min Temp-Oral 97.8 F Height 71.5 in Weight 201 lbs Body Mass Index 27.6 kg/m2 Body Surface Area 2.12 m2 Oxygen Saturation 98 % General Appearance: ?? Well developed. ?? Well nourished. ?? In no acute distress. Neck: Suppleness: ?? Neck demonstrated no decrease in suppleness. Trachea: ?? Midline. Thyroid: ?? Showed no abnormalities. Eyes: General/bilateral: Extraocular Movements: ?? Normal EOM. ?? Normal EOM. Sclera: ?? Showed no icterus. Ears: General/bilateral: External Auditory Canal: ?? External auditory meatus normal. Tympanic Membrane: ?? Normal. Nose: General/bilateral: Discharge: ?? No nasal discharge [...] ?? Not enlarged. Spleen: ?? Not enlarged. Musculoskeletal System: General/bilateral: ?? Overall findings were normal. Neurological: Balance: ?? Normal. Gait And Stance: ?? Normal. Hand eczema is some better. ASSESSMENT ? Routine adult history and physical (18 - 64 yrs) [Z00.00 - Encounter for general adult medical examination without abnormal findings] THERAPY ? Continue current medication. COUNSELING/EDUCATION ? Patient education about a proper diet ? Discussed concerns about exercise PLAN ? Encounter for screening for diabetes mellitus Lab: Basic metabolic panel Lab: Lipid profile Lab: TESTOSTERONE, FREE AND TOTAL, LC/MS/MS ? Return to the clinic if condition worsens or new symptoms arise Update labs as outlined will see derm next week no fh colon or prostate ca so no ca screenings needed at this time. HEALTH REMINDERS ? Assess Tobacco Use satisfied 11/17/2016. ? Blood Pressure Measurement satisfied 11/17/2016. ? Obesity Screening and Counseling satisfied 11/17/2016. Mao Ribeiro MD Electronically signed by: Colin Ribeiro MD Date: 11/17/2016 20:16 ER [facility] documented in this encounter Miscellaneous Notes * Letter - Mao Ribeiro MD - 11/17/2016 12:00 AM CDT Dec 01, 2016 Guzman Villagran [address] [place] [address] Dear Guzman Villagran, Thank you for choosing [facility] for your health care needs. We appreciate the opportunity to help you maintain your well being. You recently had a metabolic panel, lipid panel and testosterone levels. Your results came back normal. Please remember to follow up as discussed at your last appointment .If you have any questions please feel free to call the office at [phone], Option #3 or Option #1 to make an appointment to discuss these results. Respectfully Yours, Electronically Signed by: Mao Ribeiro MD Cc: Patients Medical Record ER [facility] documented in this encounter Plan of Treatment Not on file documented as of this encounter Visit Diagnoses Not on filedocumented in this encounter
--- OUTSIDE RECORDS SUMMARY | 2024-05-20 12:12 | XMS_ITS | Encounter Summary ---
Author Organization [facility] Address [address] [place] [address]. [place], [place] [address] [place] [address] Care Team Providers Care Manager Income Tax Name Role Phone Joel Tanner MD Primary Care Provider + Reason for Visit * Reason Onset Date Comments Consult 05/24/2019 Encounter Details Date Type Department Care Team (Late st Contact Info) Description 05/24/2019 Telephone [facility] at [address] [address] Azra Guidry RMA Consult Social History Tobacco Use Types Packs/Day Years [...] as of this encounter Progress Notes * SIOMARA Mclean - 05/24/2019 10:23 AM CST Left message on for patient to schedule cardiology consult per Dr Erick Tanner (x1) 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
--- OUTSIDE RECORDS SUMMARY | 2024-05-20 12:12 | XMS_ITS | Encounter Summary ---
Author Organization [facility] Address [facility]6 [facility] [place] [address] [place] [address] Care Team Providers Care Roving Court Reporter Name Role Phone Joel Tanner MD Primary Care Provider + Senthil Fisher MD Unavailable [phone] Encounter Details Date Type Department Care Team (Latest Contact Info) Description 06/17/2019 6:59 AM [facility] Hospital Encounter [facility] [address] [place], [place] [id number] Joel Tanner MD [address] [place] [address] Discharge Disposition: Home or Self [...] Name Priority Date/Time Associated Diagnosis Comments URINALYSIS WI REFLEX TO CULTURE Routine 06/17/2019 7:50 AM RESEARCH SCHOLAR Urinary urgency COMPREHENSIVE METABOLIC PANEL Routine 06/17/2019 7:04 AM RESEARCH SCHOLAR Hypertension, unspecified type LIPID PANEL Routine 06/17/2019 7:04 AM RESEARCH SCHOLAR Hypertension, unspecified type TESTOSTERONE, TOTAL Routine 06/17/2019 7 :04 AM RESEARCH SCHOLAR Fatigue, unspecified type documented in this encounter Results * (ABNORMAL) URINALYSIS WI REFLEX TO CULTURE (06/17/2019 7:50 AM RESEARCH SCHOLAR) COLOR (U) YELLOW 06/17/2019 12:[address] [facility] TRANSPARENCY CLEAR 06/17/2019 12:[address] [facility] SPECIFIC GRAVITY (U) 1.025 1.002 - 1.030 06/17/2019 12:[address] [facility] U PH 5.0 4.5 - 8 06/17/2019 12:[address] [facility] LEUKOCYTES (U) NEGATIVE NEGATIVE 06/17/2019 12:[address] [facility] NITRITES NEGATIVE NEGATIVE 06/17/2019 12:[address] [facility] PROTEIN (U) NEGATIVE NEGATIVE 06/17/2019 12:[address] [facility] URINE GLUCOSE NEGATIVE NEGATIVE 06/17/2019 12:[address] [facility] KETONES MG/DL (U) 4+(A) NEGATIVE 06/17/2019 12:[address] [facility] UROBILINOGEN NORMAL NORMAL EU/DL 06/17/2019 12:[address] [facility] BILIRUBIN (U) NEGATIVE NEGATIVE 06/17/2019 12:[address] [facility] BLOOD (U) NEGATIVE NEGATIVE 06/17/2019 12:[address] [facility] CULTURE & SENSITIVITY INDICATED? CULTURE IS NOT INDICATED 06/17/2019 12:[address] [facility] EPI/HPF 0-5 /HPF 06/17/2019 12:[address] [facility] BACTERIA (U) TRACE /HPF 06/17/2019 12:[address] [facility] MUCUS 1+ 06/17/2019 12:[address] [facility] AMORPHOUS SEDIMENT 1+ 06/17/2019 12:[address] [facility] URINE SPECIMEN OBTAINED BY CLEAN CATCH PROCEDURE / Unknown 06/17/2019 7:50 AM RESEARCH SCHOLAR Joel Tanner MD URINE ORDERABLES Final R esult [facility] [address] [place] [address], * TESTOSTERONE, TOTAL (06/17/2019 7:04 AM RESEARCH SCHOLAR) TESTOSTERONE TOTAL 383 250 - 1,100 ng/dL 06/19/2019 10:58 PM RESEARCH SCHOLAR [employer] [place] Comment: For additional information, please refer to http://education.Innobits.World BX/faq/ NgfoyQrdjfsxlnegiKJABTMFUP534 (This link is being provided for informational/ educational purposes only.) This test was developed and its analytical performance characteristics have been determined by [employer], [place]. It has not been cleared or approved by the U.S. Food and Drug Administration. This assay has been validated pursuant to the CLIA regulations and is used for clinical purposes. Test Performed by [facility], [employer] [facility], [address] [place], [place] Darnell Bello M.D., Ph.D., Director of Laboratories , CLIA [id number] 06/17/2019 7:04 AM RESEARCH SCHOLAR us Joel Tanner MD LABORATORY Final Re sult [employer] [place] [id number] [place], [place] , * (ABNORMAL) LIPID PANEL (06/17/2019 7:04 AM RESEARCH SCHOLAR) CHOLESTEROL 203(H) <200 MG/DL 06/17/2019 8:[address] [facility] TRIGLYCERIDES 70 <150 MG/DL 06/17/2019 8:[address] [facility] HDL 43 >40.0 MG/DL 06/17/2019 8:[address] [facility] LDL (CALCULATED) 146(H) <100 MG/DL 06/17/2019 8:[address] [facility] NON HDL CHOLESTEROL 160(H) <130 MG/DL 06/17/2019 8:[address] [facility] Comment: NOTE: WHEN THE TRIGLYCERIDES ARE >200 mg/dL, NON HDL C IS A SECONDARY TARGET OF THERAPY, WITH A GOAL 30 mg/dL HIGHER THAN THE IDENTIFIED LDL C GOAL. CHOL/HDL RATIO 4.7(H) 0.0 - 4.5 06/17/2019 8:[address] [facility] VLDL CALCULATION 14 5 - 55 MG/DL 06/17/2019 8:[address] [facility] LIPID INTERPRETATION 06/17/2019 8:43 AM RESEARCH SCHOLAR [facility] Comment: NIH CONCENSUS REPORT [...] ?HDL ?<40 ?--- ?LDL ? >=160 ?>=130 06/17/2019 7:04 AM RESEARCH SCHOLAR us Joel Tanner MD LABORATORY Final Re sult [facility] [address] [place] [address], [place] [phone] * (ABNORMAL) COMPREHENSIVE METABOLIC PANEL (06/17/2019 7:04 AM RESEARCH SCHOLAR) [facility] Signature GLUCOSE 85 70 - 99 MG/DL 06/17/2019 8:[address] [facility] BUN 25(H) 7 - 18 MG/DL 06/17/2019 8:[address] [facility] CREATININE S/P/B 0.87 0.7 - 1.3 MG/DL 06/17/2019 8:[address] [facility] SODIUM S/P/B 138 136 - 145 MMOL/L 06/17/2019 8:[address] [facility] POTASSIUM S/P/B 4.4 3.5 - 5.1 MMOL/L 06/17/2019 8:[address] [facility] CHLORIDE S/P/B 100 100 - 108 MMOL/L 06/17/2019 8:[address] [facility] CO2 26.4 21 - 32 MMOL/L 06/17/2019 8:[address] [facility] CALCIUM S/P/B 8.2(L) 8.5 - 10.1 MG/DL 06/17/2019 8:[address] [facility] BILIRUBIN TOTAL S/P/B 1.0 0.2 - 1.2 MG/DL 06/17/2019 8:[address] [facility] TOTAL PROTEIN S/P/B 6.8 6.4 - 8.2 G/DL 06/17/2019 8:[address] [facility] ALBUMIN S/P/B 4.0 3.4 - 5.0 G/DL 06/17/2019 8:[address] [facility] AST 28 15 - 37 U/L 06/17/2019 8:43 AM RESEARCH SCHOLAR [facility] ALT 43 16 - 60 U/L 06/17/2019 8:[address] [facility] ALKALINE PHOSPHATASE S/P/B 64 50 - 136 U/L 06/17/2019 8:[address] [facility] ANION GAP 11.6 5 - 15 MMOL/L 06/17/2019 8:[address] [facility] BUN CREATININE RATIO 28.7(H) 6 - 26 06/17/2019 8:[address] [facility] A/G RATIO 1.4 1.0 - 2.0 RATIO 06/17/2019 8:[address] [facility] EGFR NON-AFR. AMER. >90 >90 ML/MIN/1.7 3 M2 06/17/2019 8:[address] [facility] EGFR AFR. AMER. >90 >90 ML/MIN/1.7 3 M2 06/17/2019 8:[address] [facility] Comment: NOTE: eGFR is not calculated for patients <18 years of age. This is an estimated GFR (CKD EPI) and should not be used for calculating drug doses. 06/17/2019 7:04 AM RESEARCH SCHOLAR Joel Tanner MD LABORATORY Final Re sult [facility] [address] [place] [address], documented in this encounter Visit Diagnoses Diagnosis Hypertension, unspecified type Fatigue, unspecified type Urinary urgency Urgency of urination documented in this encounter Care Teams Roving Court Reporter Relationship Specialty Start Date End Date Joel Tanner MD [address] [facility] [address] [place] [address] PCP - General FAMILY PRACTICE 05/24/19 02/27/24 Senthil Fisher MD [facility]. [address] [address] [employer] Assistant Teacher CARDIOVASCULAR DISEASE 05/29/19 documented as of this encounter
--- OUTSIDE RECORDS SUMMARY | 2024-05-20 12:12 | XMS_ITS | Encounter Summary ---
Author Organization [facility] Address [facility]6 [facility]. [place], [place] [address] [place] [address] Care Team Providers Care Internal Control Specialist Name Role Phone Unavailable Primary Care Provider Unavailabl e Encounter Details Date Type Department Care Team (Late st Contact Info) Description 11/16/2015 Abstract [facility] [address] [place] [address] Chalo Melo MD [address] [place] [address] Social History Tobacco Use Types Packs/Day Years Used Date Smoking Tobacco: Never Assessed Sex and Gender Information Value Date Recorded Sex Assigned at Not on file Legal Sex Male 8:30 PM CDT Gender Identity Not on file Sexual Orientation Not on file documented as of this encounter Plan of Treatment Not on file documented as of this encounter Visit Diagnoses Diagnosis Encounter for other preprocedural examination documented in this encounter
--- OUTSIDE RECORDS SUMMARY | 2024-05-20 12:12 | XMS_ITS | Encounter Summary ---
Author Organization [facility] Address [facility]6 [facility]. [place], [place] [address] [place] [address] Care Team Providers Care Public Relations Player Name Role Phone Unavailable Primary Care Provider Unavailabl e Encounter Details Date Type Department Care Team (Late st Contact Info) Description 02/07/2017 Abstract [facility] Clinics Conversion Md, Generic Conversion, Social [...] Sign Reading Time Taken Comments Blood Pressure 100/70 02/07/2017 3:57 PM CDT Pulse 48 02/07/2017 3:57 PM CDT Temperature - - Respiratory Rate - - Oxygen Saturation - - Inhaled Oxygen Concentration - - Weight 91.7 kg (202 lb 3 oz) 02/07/2017 3:57 PM CDT Height 181.6 cm (5' 11.5 ) 02/07/2017 3:57 PM CD T Body Mass Index 27.81 02/07/2017 3:57 PM CDT documented in this encounter Progress Notes * Ezio Horn MD - 02/07/2017 12:00 AM CDT ACTIVE PROBLEMS ? No Active Problems CHIEF COMPLAINT The Chief Complaint is: C/o right middle finger pain, swelling, discoloration. HISTORY OF PRESENT ILLNESS Guzman Villagran is a 41 year old male. Pt is a 41 yo WM who presents to clinic with complaint of painful middle finger on R hand. Pt states that he noticed some pain and swelling about a week ago that really got tight and painful over thepast few days. Pt is wondering what else can be done. He denies any systemic symptoms. CURRENT MEDICATION ? None PAST MEDICAL/SURGICAL HISTORY Bilat shoulder surgeries, (tears, labrum etc) rad and sp meningiits as a child hx kidney stones x2 partial acl tear lt knee following w ortho nonsurgical for now. SOCIAL HISTORY Behavioral: Smoking status: Former smoker. ALLERGIES ? No Known Allergies REVIEW OF SYSTEMS Systemic: No systemic symptoms. Head: No head symptoms. Neck: No neck symptoms. Otolaryngeal: No otolaryngeal symptoms. Pulmonary: No pulmonary symptoms. Gastrointestinal: No gastrointestinal symptoms. Genitourinary: No genitourinary symptoms. Endocrine: No endocrine symptoms. Hematologic: No hematologic symptoms. Musculoskeletal: No localized soft tissue swelling in a lower extremity. Neurological: No neurological symptoms. Psychological: No psychological symptoms. Skin: Skin symptoms. PHYSICAL FINDINGS ? Vitals taken 02/07/2017 03:57 pm BP-Sitting R 100/70 mmHg BP Cuff Size Large Pulse Rate-Sitting 48 bpm Respiration Rate 18 per min Temp-Oral 97.8 F Height 71.5 in Weight 202 lbs 3.2 oz Body Mass Index 27.8 kg/m2 Body Surface Area 2.13 m2 Oxygen Saturation 98 % General Appearance: [...] Musculoskeletal System: General/bilateral: ?? Overall findings were normal R hand - middle finger with redness and swellingaround the cuticle on the medial aspect. Some TTP. ASSESSMENT Paronychia - pt with signs of paronychia. Discussed optins and pt elects for decompression with needle. Finger was prepped and 21 gauge needle with used to make incision in cuticle over the area of infection. Pressure with purulent drainage was immediately released with some mild bleeding. No complications. Wound dressed with bandaid and recommend warm compresses. No need for abt at this time. THERAPY ? Continue current medication. ? Continue current therapy. COUNSELING/EDUCATION ? Return to the clinic if condition worsens or new symptoms arise PLAN ? Return to the clinic if condition worsens or new symptoms arise Ezio Horn MD Electronically signed by: Ezio Horn MD Date: 02/07/2017 16:39 Electronically approved by: Ezio Horn MD Date: 02/07/17 16:39 WILL AMBASSADOR documented in this encounter Plan of Treatment Not on file documented as of this encounter Visit Diagnoses Not on filedocumented in this encounter
--- OUTSIDE RECORDS SUMMARY | 2024-05-20 12:12 | XMS_ITS | Encounter Summary ---
Author Organization [facility] Address [facility]6 [facility]. [place], [place] [address] [place] [address] Care Team Providers Care Bottling Attendant Name Role Phone Unavailable Primary Care Provider Unavailabl e Encounter Details Date Type Department Care Team (Late st Contact Info) Description 06/03/2015 Abstract [facility] Clinics Conversion Md, Generic Conversion, Social [...]
--- OUTSIDE RECORDS SUMMARY | 2024-05-20 12:12 | XMS_ITS | Encounter Summary ---
Author Organization [facility] Address [facility]. [place], [place] [address] [place] [address] Care Team Providers Care Plaster Whittler Name Role Phone Unavailable Primary Care Provider Unavailabl e Encounter Details Date Type Department Care Team (Late st Contact Info) Description 11/17/[address] [facility] Clinics Conversion Md, Generic Conversion, [...]
--- OUTSIDE RECORDS SUMMARY | 2024-05-20 12:12 | XMS_ITS | Encounter Summary ---
Author Organization [facility] Address Counts include 234 beds at the [facility]6 [facility]. [place], [place] [address] [place] [address] Care Team Providers Care Direct Marketing Representative Name Role Phone Unavailable Primary Care Provider Unavailabl e Encounter Details Date Type Department Care Team (Late st Contact Info) Description 06/15/2015 Abstract [facility] Conversion Mao Ribeiro MD [id number] [place] [address] Social History Tobacco Use Types Packs/Day Years Used Date Smoking Tobacco: Never Assessed Sex and Gender Information Value Date Recorded Sex Assigned at Not on file Legal Sex Male 8:30 PM CDT Gender Identity Not on file Sexual Orientation Not on file documented as of this encounter Progress Notes * Mao Ribeiro MD - 06/15/2015 12:00 AM CST Date: 06/15/2015 Name: Guzman Villagran : 1975 Age: 39 Telephone conversation with patient regarding lab results from 06/13/15-per Dr. Ribeiro results show elevated cholesterol levels and to start Atorvastatin 20mg daily then repeat CMP and Lipids in 3 months-- diet information sent to patient. Note entered by Jeanette Osorio RN UP ASSEMBLER documented in this encounter Plan of Treatment Not on file documented as of this encounter Visit Diagnoses Not on filedocumented in this encounter
--- OUTSIDE RECORDS SUMMARY | 2024-05-20 12:12 | XMS_ITS | Encounter Summary ---
Author Organization [facility] Address [facility]6 [facility]. [place], [place] [address] [place] [address] Care Team Providers Care Real Estate Investment Analyst Name Role Phone None, Provider MD Primary Care Provider Unavaila ble Reason for Referral * Consultation (Routine) - Closed Specialty Diagnoses / Procedures Referred By Contact Referred To Contact CARDIOLOGY / Cardiology Diagnoses Chest pain, unspecified type Joel Stinson MD [address] [address] Phone: tel:[phone] fax:[phone] [facility] [address] [place] [address] Phone: tel: fax: Referral ID Status Reason Start Date Expiration Date V isits Requested Visits Authorized [id number] Closed Specialty Services 05/13/2019 06/11/2020 99 99 ER Reason for Visit * Reason Comments Meet and Greet Provider f/u ER, Chest Pa in Encounter Details Date Type Department Care Team (Late st Contact Info) Description 05/13/2019 8:00 AM DOFFER Office Visit [facility] [address] [place] [address] Joel Stinson MD [address] [place] [address] [address] [place] [phone] Meet and Greet Provider (f/u ER, Chest Pain ) Social History Tobacco Use Types Packs/Day [...] Sign Reading Time Taken Comments Blood Pressure 122/90 05/13/2019 7:48 AM DOFFER Pulse 66 05/13/2019 7:48 AM DOFFER Temperature 36.7 ??C (98.1 ??F) 05/13/2019 7:48 AM CS T Respiratory Rate 20 05/13/2019 7:48 AM DOFFER Oxygen Saturation 98% 05/13/2019 7:48 AM DOFFER Inhaled Oxygen Concentration - - Weight 106.6 kg (235 lb) 05/13/2019 7:48 AM DOFFER Height 182.9 cm (6') 05/13/2019 7:48 AM DOFFER Body Mass Index 31.87 05/13/2019 7:48 AM DOFFER documented in this encounter Patient Instructions * Patient Instructions* Joel Stinson MD - 05/13/2019 8:00 AM DOFFER Start on medication for blood pressure and recheck with repeat labs in a month. Will also refer to cardiology for stress testing. ER documented in this encounter Progress Notes * Joel Stinson MD - 05/13/2019 8:00 AM CST Chief Complaint: Meet and Greet Provider (f/u ER, Chest Pain ) HPI: Guzman Villagran is a 43-year-old male here for follow-up on ER visit of last month for chest pains and elevated blood pressure. Still having central chest pains off and on without dyspnea or stomach symptoms. Had negative enzymes and normal EKG. Pains not related to activity or position. ROS: Review of Systems Constitutional: Negative for fever. HENT: Negative for sore throat. Respiratory: Negative for cough and shortness of breath. Cardiovascular: Positive for chest pain. Negative for palpitations and leg swelling. Gastrointestinal: Negative for abdominal pain. Neurological: Negative for dizziness. Physical Exam Constitutional: He is well-developed, well-nourished, and in no distress. HENT: Mouth/Throat: Oropharynx is clear and moist. Eyes: Conjunctivae are normal. Neck: Neck supple. No thyromegaly present. Cardiovascular: Normal rate, regular rhythm and intact distal pulses. Pulmonary/Chest: Breath sounds normal. Abdominal: Soft. There is no tenderness. Musculoskeletal: He exhibits no edema. Current Outpatient Medications Medication Sig ??? lisinopril 20 MG tablet Take 1 tablet (20 mg total) by mouth daily. No current facility-administered medications for this visit. Past Medical History: Diagnosis Date ??? Kidney stones x 2 Past Surgical History: Procedure Laterality Date ??? SHOULDER SURGERY Bilateral torn labrum Social History Tobacco Use ??? Smoking status: Former Smoker Types: Cigarettes Last attempt to quit: 1998 Years since quittin.9 ??? Smokeless tobacco: Never Used ??? Tobacco comment: pt quit 20 years ago Substance Use Topics ??? Alcohol use: Yes Comment: rare, social, 2 beers a week. Family History Problem Relation Name Age of Onset ??? Lung Cancer Mother Vitals: 05/13/19 0748 BP: 122/90 BP Location: Right arm Patient Position: Sitting Cuff size: Adult Regular Pulse: 66 Temp: 98.1 ??F (36.7 ??C) TempSrc: Oral Weight: 106.6 kg (235 lb) Height: 6' (1.829 m) Diagnoses/Impression: Chest pain, unspecified type (primary encounter diagnosis) Hypertension, unspecified type Recommendations and Plan: Orders Placed This Encounter ??? COMPREHENSIVE METABOLIC PANEL Standing Status: Future Standing Expiration Date: 05/12/2020 ??? LIPID PANEL Standing Status: Future Standing Expiration Date: 05/12/2020 ??? Ambulatory referral to Cardiology, Adult (OTHER) Referral Priority: Routine Referral Type: Consultation Referral Reason: Specialty Services Requested Specialty: CARDIOLOGY Number of Visits Requested: 1 Expiration Date: 06/11/2020 ??? lisinopril 20 MG tablet Sig: Take 1 tablet (20 mg total) by mouth daily. Dispense: 30 tablet Refill: 0 Patient Instructions Start on medication for blood pressure and recheck with repeat labs in a month. Will also refer to cardiology for stress testing. JOEL STINSON MD Referring Provider: Self Referral PCP: JOEL STINSON MD ER documented in this encounter Plan of Treatment Scheduled Referrals Name Type Priority Associated Diagnoses Orde r Schedule Ambulatory referral to Cardiology, Adult (OTHER) Referral Routine Chest pain, unspecified type Ordered: 05/13/2019 documented as of this encounter Results * (ABNORMAL) LIPID PANEL (06/17/2019 7:04 AM DOFFER) [facility] CHOLESTEROL 203(H) <200 MG/DL 06/17/2019 8:43 AM [facility] TRIGLYCERIDES 70 <150 MG/DL 06/17/2019 8:43 AM [facility] HDL 43 >40.0 MG/DL 06/17/2019 8:43 AM [facility] LDL (CALCULATED) 146(H) <100 MG/DL 06/17/2019 8:43 AM [facility] NON HDL CHOLESTEROL 160(H) <130 MG/DL 06/17/2019 8:43 AM [facility] Comment: NOTE: WHEN THE TRIGLYCERIDES ARE >200 mg/dL, NON HDL C IS A SECONDARY TARGET OF THERAPY, WITH A GOAL 30 mg/dL HIGHER THAN THE IDENTIFIED LDL C GOAL. CHOL/HDL RATIO 4.7(H) 0.0 - 4.5 06/17/2019 8:43 AM [facility] VLDL CALCULATION 14 5 - 55 MG/DL 06/17/2019 8:43 AM [facility] LIPID INTERPRETATION 06/17/2019 8:43 AM [facility] Comment: NIH CONCENSUS REPORT [...] ?LDL ? >=160 ?>=130 06/17/2019 7:04 AM DOFFER us Joel Stinson MD LABORATORY Final Re sult [facility] ([facility] [address] [place] [address], * (ABNORMAL) COMPREHENSIVE METABOLIC PANEL (06/17/2019 7:04 AM [facility]) [facility] GLUCOSE 85 70 - 99 MG/DL 06/17/2019 8:43 AM [facility] BUN 25(H) 7 - 18 MG/DL 06/17/2019 8:43 AM [facility] CREATININE S/P/B 0.87 0.7 - 1.3 MG/DL 06/17/2019 8:43 AM [facility] SODIUM S/P/B 138 136 - 145 MMOL/L 06/17/2019 8:43 AM [facility] POTASSIUM S/P/B 4.4 3.5 - 5.1 MMOL/L 06/17/2019 8:43 AM [facility] CHLORIDE S/P/B 100 100 - 108 MMOL/L 06/17/2019 8:43 AM [facility] CO2 26.4 21 - 32 MMOL/L 06/17/2019 8:43 AM [facility] CALCIUM S/P/B 8.2(L) 8.5 - 10.1 MG/DL 06/17/2019 8:43 AM [facility] BILIRUBIN TOTAL S/P/B 1.0 0.2 - 1.2 MG/DL 06/17/2019 8:43 AM [facility] TOTAL PROTEIN S/P/B 6.8 6.4 - 8.2 G/DL 06/17/2019 8:43 AM [facility] ALBUMIN S/P/B 4.0 3.4 - 5.0 G/DL 06/17/2019 8:43 AM [facility] AST 28 15 - 37 U/L 06/17/2019 8:43 AM [facility] ALT 43 16 - 60 U/L 06/17/2019 8:43 AM [facility] ALKALINE PHOSPHATASE S/P/B 64 50 - 136 U/L 06/17/2019 8:43 AM [facility] ANION GAP 11.6 5 - 15 MMOL/L 06/17/2019 8:43 AM [facility] BUN CREATININE RATIO 28.7(H) 6 - 26 06/17/2019 8:43 AM [facility] A/G RATIO 1.4 1.0 - 2.0 RATIO 06/17/2019 8:43 AM [facility] EGFR NON-AFR. AMER. >90 >90 ML/MIN/1.7 3 M2 06/17/2019 8:43 AM [facility] EGFR AFR. AMER. >90 >90 ML/MIN/1.7 3 M2 06/17/2019 8:43 AM [facility] Comment: NOTE: eGFR is not calculated for patients <18 years of age. This is an estimated GFR (CKD EPI) and should not be used for calculating drug doses. 06/17/2019 7:04 AM DOFFER Joel Stinson MD LABORATORY Final Re sult [facility] [address] [place] [address], [place] [phone] documented in this encounter Visit Diagnoses Diagnosis Chest pain, unspecified type- Primary Hypertension, unspecified type documented in this encounter Care Teams Real Estate Investment Analyst Relationship Specialty Start Date End Date None, Provider, PCP - General 05/13/19 05/23/19 documented as of this encounter
--- OUTSIDE RECORDS SUMMARY | 2024-05-20 12:12 | XMS_ITS | Encounter Summary ---
Author Organization [facility] Address Critical access hospital6 [facility]. [place], [place] [address] [place] [address] Care Team Providers Care Sales Account Representative Name Role Phone Unavailable Primary Care Provider Unavailabl e Encounter Details Date Type Department Care Team (Late st Contact Info) Description 12/13/2013 Abstract [facility] [address] [place] [address] Alejandro Damon MD [address] [place] [address] Social History Tobacco Use Types Packs/Day Years Used Date Smoking Tobacco: Never Assessed Sex and Gender Information Value Date Recorded Sex Assigned at Not on file Legal Sex Male 8:30 PM CDT Gender Identity Not on file Sexual Orientation Not on file documented as of this encounter Plan of Treatment Not on file documented as of this encounter Visit Diagnoses Diagnosis Other specific joint derangement of shoulder, not elsewhere classified documented in this encounter
--- OUTSIDE RECORDS SUMMARY | 2024-05-20 12:12 | XMS_ITS | Encounter Summary ---
Author Organization [facility] Address [facility]6 [facility]. [place], [place] [address] [place] [address] Care Team Providers Care Examination Grader Name Role Phone Unavailable Primary Care Provider Unavailabl e Encounter Details Date Type Department Care Team (Late st Contact Info) Description 06/04/2015 Abstract [facility] Conversion Md, Generic Conversion, Social History [...]
--- OUTSIDE RECORDS SUMMARY | 2024-05-20 12:12 | XMS_ITS | Encounter Summary ---
Author Organization [facility] Address [facility]6 [place] [address] [place] [address] Care Team Providers Care Specialty Foods Cook Name Role Phone Joel Tanner MD Primary Care Provider + Senthil Fisher MD Unavailable [phone] Encounter Details Date Type Department Care Team (Latest Contact Info) Description 06/17/2019 7:00 AM COLOR CONTROL OPERATOR - 06/17/2019 11:59 PM [facility] Hospital Encounter [facility] [address] [place] [address] Joel Tanner MD [address] [place] [address] Discharge Disposition: Home or Self [...] Procedure Name Priority Date/Time Associated Diagnosis Comments XR RIBS RT UNI Routine 06/17/2019 7:35 AM COLOR CONTROL OPERATOR Rib pain on right side documented in this encounter Results * XR RIBS RT UNI (06/17/2019 7:35 AM COLOR CONTROL OPERATOR) Anatomical Region Laterality Modality Chest Radiographic Shannen ging 06/17/2019 8:28 AM COLOR CONTROL OPERATOR Impressions 06/17/2019 8:32 AM COLOR CONTROL OPERATOR IMPRESSION: Nondisplaced and minimally displaced fractures of the eighth and ninth ribs respectively. Interpreted By: Adolph Neff, 06/17/2019 8:28 AM Narrative 06/17/2019 8:32 AM COLOR CONTROL OPERATOR EXAMINATION: XR RIBS RT UNI INDICATIONS: Pleurodynia COMPARISON: NONE FINDINGS: Right rib series with AP and oblique views of the right chest demonstrate 12 thoracic ribs with a minimally displaced right ninth and nondisplaced right eighth rib fractures anterolaterally. Remote fracture deformity of the right clavicle distally. No pneumothorax or effusion. The right lung is clear. The cardiomediastinal contours are maintained. Procedure Note Adolph Neff MD - 06/17/2019 EXAMINATION: XR RIBS RT UNI INDICATIONS: Pleurodynia COMPARISON: NONE FINDINGS: Right rib series with AP and oblique views of the right chestdemonstrate 12 thoracic ribs with a minimally displaced right ninth and nondisplaced right eighth rib fractures anterolaterally. Remote fracture deformity of the right clavicle distally. No pneumothorax or effusion. The right lung is clear. The cardiomediastinal contours are maintained. IMPRESSION: Nondisplaced and minimally displaced fractures of the eighth and ninth ribs respectively. Interpreted By: Adolph Neff, 06/17/2019 8:28 AM Joel Tanner MD GENERAL IMAGING Final Re sult documented in this encounter Visit Diagnoses Diagnosis Rib pain on right side Chest pain, unspecified documented in this encounter Care Teams Specialty Foods Cook Relationship Specialty Start Date End Date Joel Tanner MD [address] [facility] [address] [place] [address] PCP - General FAMILY PRACTICE 05/24/19 02/27/24 Senthil Fisher MD [facility]. [address] [place] [address] Deanne Deputy Editor In Chief CARDIOVASCULAR DISEASE 05/29/19 documented as of this encounter
--- OUTSIDE RECORDS SUMMARY | 2024-05-20 12:12 | XMS_ITS | Encounter Summary ---
Author Organization [facility] Address [facility] [place], [place] [address] [place] [address] Care Team Providers Care Yarn Man Name Role Phone Unavailable Primary Care Provider Unavailabl e Encounter Details Date Type Department Care Team (Late st Contact Info) Description 12/02/2015 Abstract [facility] Conversion Md, [...]
--- OUTSIDE RECORDS SUMMARY | 2024-05-20 12:12 | XMS_ITS | Encounter Summary ---
Author Organization [facility] Address [facility]6 [facility]. [place], [place] [address] [place] [address] Care Team Providers Care Health Services Director Name Role Phone Unavailable Primary Care Provider Unavailabl e Encounter Details Date Type Department Care Team (Late st Contact Info) Description 04/23/2018 [facility] Conversion Mao Ribeiro MD [address] [facility] [id number] [place] [address] Social History Tobacco Use Types Packs/Day Years [...] Procedure Name Priority Date/Time Associated Diagnosis Comments TESTOSTERONE, FREE & TOTAL Routine 11/28/2016 7:29 AM CDT BASIC METABOLIC PANEL Routine 11/28/2016 7:29 AM CDT LIPID PANEL Routine 11/28/2016 7:29 AM CDT documented in this encounter Results * (ABNORMAL) LIPID PANEL (11/28/2016 7:29 AM CDT) [facility] Signature CHOLESTEROL 260(H) <200 MG/DL [facility] TO EPIC CONVERSION TRIGLYCERIDES 183(H) <150 MG/DL [facility] TO [facility]IC CONVERSION HDL 47(L) >60 MG/DL [facility] T O EPIC CONVERSION Comment:AN HDL OF >60 IS NO RISK, RISK IS DEFINED <40 LDL (CALCULATED) 176(H) <100 MG/DL [facility] TO EPIC CONVERSION Comment: AN LDL OF <100 IS OPTIMAL, ELEVATED IS DEFINED >130 BY CURRENT GUIDELINES, LDL GOALS ARE DEPENDENT UPON OTHER RISK FACTORS 11/28/2016 7:29 AM CDT 11/28/2016 7:29 AM CDT Narrative [facility] TO EPIC CONVERSION - 11/28/2016 7:29 AM CDT [AUTO]: This test was reviewed. us Mao Ribeiro MD LABORATORY Final Result [facility] TO EPIC CONVERSION * TESTOSTERONE, FREE & TOTAL (11/28/2016 7:29 AM CDT) TESTOSTERONE TOTAL 496 [facility] TO EPIC CONVERSION Comment: Reference range: 250 to 1100 Unit: ng/dL For more information on this test, go to http://education.Levanta/faq/ TotalTestosteroneLCMSMS This test was developed and its analytical performance characteristics have been determined by [employer] [place], [place]. It has not been cleared or approved by the U.S. Food and Drug Administration. This assay has been validated pursuant to the CLIA regulations and is used for clinical purposes. TESTOSTERONE FREE 88.3 ME [facility] TO EPIC CONVERSION Comment: Reference range: 35.0 to 155.0 Unit: pg/mL This test was developed and its analytical performance characteristics have been determined by [employer] [place], [place]. It has not been cleared or approved by the U.S. Food and Drug Administration. This assay has been validated pursuant to the CLIA regulations and is used for clinical purposes. Test Performed by [employer] [facility], [employer], [address] [place] [address] Darnell Bello M.D., Ph.D., Director of Laboratories , CLIA [id number] 11/28/2016 7:29 AM CDT 11/28/2016 7:29 AM CDT Narrative [facility] TO EPIC CONVERSION - 11/28/2016 7:29 AM CDT [AUTO]: This test was reviewed. us Mao Ribeiro MD LABORATORY Final Result [facility] TO EPIC CONVERSION * (ABNORMAL) BASIC METABOLIC PANEL (11/28/2016 7:29 AM CDT) [facility] GLUCOSE 101(H) 70 - 99 MG/DL [facility] TO EPIC CONVERSION BUN 20 8.9 - 20.6 MG/DL [facility] TO EPIC CONVERSION CREATININE S/P/B 1.00 0.70 - 1.30 MG/DL [facility] TO EPIC CONVERSION SODIUM S/P/B 140 136 - 145 MMOL/L [facility] TO [facility] CONVERSION POTASSIUM S/P/B 4.4 3.5 - 5.1 MMOL/L [facility] TO EPIC CONVERSION CHLORIDE S/P/B 102 98 - 107 MMOL/L [facility] TO EPIC CONVERSION TCO2 28.0 22 - 29 MMOL/L [facility] TO EPIC CONVERSION CALCIUM S/P/B 9.4 8.4 - 10.2 MG/DL [facility] TO EPIC CONVERSION ANION GAP 10.0 0 - 24 MMOL/L [facility] TO EPIC CONVERSION BUN CREATININE RATIO 20.0 6 - 26 [facility] TO [facility]IC CONVERSION OSMOLALITY (CALC) 282(H) 261 - 280 MOSM/KG [facility] TO EPIC CONVERSION EGFR NON-AFR. AMER. >60 >60 ML/MIN/1.7 3 M2 [facility] TO EPIC CONVERSION EGFR AFR. AMER. >60 >60 ML/MIN/1.7 3 M2 [facility] TO EPIC CONVERSION 11/28/2016 7:29 AM CDT 11/28/2016 7:29 AM CDT Narrative [facility] TO EPIC CONVERSION - 11/28/2016 7:29 AM CDT [AUTO]: This test was reviewed. us Mao Ribeiro MD LABORATORY Final Result Performing Organization Address City/[facility]/ZIP Co de Phone Number [facility] TO EPIC CONVERSION documented in this encounter Visit Diagnoses Not on filedocumented in this encounter
--- OUTSIDE RECORDS SUMMARY | 2024-05-20 12:12 | XMS_ITS | Encounter Summary ---
Author Organization [facility] Address [facility]6 [facility]. [place], [place] [address] [place] [address] Care Team Providers Care Nursing Education Consultant Name Role Phone Joel Tanner MD Primary Care Provider + Senthil Fisher MD Unavailable [phone] Reason for Visit * Reason Onset Date Comments Question 06/13/2019 Encounter Details Date Type Department Care Team (Late st Contact Info) Description 06/13/2019 Telephone [facility] [address] [place] [address] Joel Tanner MD [address] [facility] [address] [place] [address] Question Social History Tobacco Use Types Packs/Day Years [...] Progress Notes * Joel Tanner MD - 06/14/2019 8:49 AM CST Ok right side is where his pain is. K SKIN CURER * Silvia Robledo RN - 06/14/2019 8:38 AM CST Ok? PATIENT WOULD LIKE TO HAVE AN XRAY OF HIS RIBS. PLEASE SEND ORDER TO [facility] K SKIN CURER documented in this encounter Plan of Treatment Not on file documented as of this encounter Results * XR RIBS RT UNI (06/17/2019 7:35 AM SLUNK SKIN CURER) Anatomical Region Laterality Modality Chest Radiographic Shannen ging 06/17/2019 8:28 AM SLUNK SKIN CURER Impressions 06/17/2019 8:32 AM SLUNK SKIN CURER IMPRESSION: Nondisplaced and minimally displaced fractures of the eighth and ninth ribs respectively. Interpreted By: Adolph Neff, 06/17/2019 8:28 AM Narrative 06/17/2019 8:32 AM SLUNK SKIN CURER EXAMINATION: XR RIBS RT UNI INDICATIONS: Pleurodynia [...] Visit Diagnoses Diagnosis Rib pain on right side- Primary Chest pain, unspecified Rib pain on right side Chest pain, unspecified documented in this encounter Care Teams Nursing Education Consultant Relationship Specialty Start Date End Date Joel Tanner MD [address] [facility] [address] [place] [address] PCP - General FAMILY PRACTICE 05/24/19 02/27/24 Senthil Fisher MD [facility]. [address] [place] [address] Deanne Systems Applications Programming Lead CARDIOVASCULAR DISEASE 05/29/19 documented as of this encounter
--- OUTSIDE RECORDS SUMMARY | 2024-05-20 12:12 | XMS_ITS | Encounter Summary ---
Author Organization [facility] Address [address] [facility]. [place], [place] [address] [place] [address] Care Team Providers Care Underliner Name Role Phone Unavailable Primary Care Provider Unavailabl e Encounter Details Date Type Department Care Team (Late st Contact Info) Description 10/07/2013 Abstract [facility] [address] [place] [address] Nelida Peña, [address] [address] Social History Tobacco Use Types Packs/Day Years Used Date Smoking Tobacco: Never Assessed Sex and Gender Information Value Date Recorded Sex Assigned at Not on file Legal Sex Male 8:30 PM CDT Gender Identity Not on file Sexual Orientation Not on file documented as of this encounter Plan of Treatment Not on file documented as of this encounter Visit Diagnoses Diagnosis Contusion of chest wall documented in this encounter
--- OUTSIDE RECORDS SUMMARY | 2024-05-20 12:12 | XMS_ITS | Encounter Summary ---
Author Organization [facility] Address [facility]6 [facility]. [place], [place] [address] [place] [address] Care Team Providers Care Wreath Machine Operator Name Role Phone Unavailable Primary Care Provider Unavailabl e Encounter Details Date Type Department Care Team (Late st Contact Info) Description 09/14/2015 Abstract [facility] [address] [place] [address] Mao Ribeiro MD [address] [facility] [id number] [place] [address] Social History Tobacco Use Types Packs/Day Years Used Date Smoking Tobacco: Never Assessed Sex and Gender Information Value Date Recorded Sex Assigned at Not on file Legal Sex Male 8:30 PM CDT Gender Identity Not on file Sexual Orientation Not on file documented as of this encounter Plan of Treatment Not on file documented as of this encounter Visit Diagnoses Diagnosis Hyperlipidemia Other and unspecified hyperlipidemia documented in this encounter
--- OUTSIDE RECORDS SUMMARY | 2024-05-20 12:12 | XMS_ITS | Encounter Summary ---
Author Organization [facility] Address [facility]6 [facility] [place] [address] [place] [address] Care Team Providers Care Set Off Press Operator Name Role Phone Unavailable Primary Care Provider Unavailabl e Encounter Details Date Type Department Care Team (Late st Contact Info) Description 11/28/2016 Abstract [facility] [address] [place] [address] Mao Ribeiro MD [address] [facility] [id number] [place] [address] Social History Tobacco Use Types Packs/Day Years [...] CDT documented in this encounter Results * TESTOSTERONE, FREE & TOTAL (11/28/2016 7:29 AM CDT) TESTOSTERONE TOTAL 496 250 - 1,100 ng/dL 12/01/2016 12:[address] [facility] Comment: For more information on this test, go tohttp://education.HigherNext/faq/TotalTestosteroneLCMSMSThis test was developed and its analytical performancecharacteristics have been determined by [employer] [place], [place]. It hasnot been cleared or approved by the U.S. Food and DrugAdministration. This assay has been validated pursuantto the CLIA regulations and is used for clinicalpurposes. TESTOSTERONE FREE 88.3 35.0 - 155.0 pg/mL 12/01/2016 12:39 PM CDT [facility]OLSS[facility]ISTA SNYDER Comment: This test was developed and its analytical performancecharacteristics have been determined by [employer]. It hasnot been cleared or approved by the U.S. Food and DrugAdministration. This assay has been validated pursuantto the CLIA regulations and is used for clinicalpurposes.Test Performed by [facility],[employer] [place],[address] [place], [place] [address]Neyuaawjazmin Bello M.D., Ph.D., Director of [phone], [place] [id number] SERUM SPECIMEN / Unknown 11/28/2016 7:29 AM CDT 11/28/2016 7:31 AM CDT us Generic Conversion Md [facility] Final R esult [place] [id number] [place] [address], * (ABNORMAL) LIPID PANEL (11/28/2016 7:29 AM CDT) Pathologist [facility] CHOLESTEROL 260(H) <200 MG/DL 11/28/2016 10:16 AM CDT [facility] TRIGLYCERIDES 183(H) <150 MG/DL 11/28/2016 10:16 AM CDT [facility] HDL 47(L) >60 MG/DL 11/28/2016 10:16 AM CDT [facility] Comment:AN HDL OF >60 IS NO RISK, RISK IS DEFINED <40 LDL (CALCULATED) 176(H) <100 MG/DL 11/29/19 17 10:16 AM CDT [facility] Comment: AN LDL OF <100 IS OPTIMAL, ELEVATED IS DEFINED >130BY CURRENT GUIDELINES, LDL GOALS ARE DEPENDENT UPON OTHER RISK FACTORS 11/28/2016 7:29 AM CDT 11/28/2016 7:31 AM CDT us Generic Conversion Md [facility] Final R esult [facility] [address] [place] [address], * (ABNORMAL) BASIC METABOLIC PANEL (11/28/2016 7:29 AM CDT) GLUCOSE 101(H) 70 - 99 MG/DL 11/28/2016 10:16 AM T [facility] BUN 20 8.9 - 20.6 MG/DL 11/28/2016 10:16 AM T [facility] CREATININE S/P/B 1.00 0.70 - 1.30 MG/DL 11/28/2016 10:16 AM CDT [facility] SODIUM S/P/B 140 136 - 145 MMOL/L 11/28/2016 10:16 AM T [facility] POTASSIUM S/P/B 4.4 3.5 - 5.1 MMOL/L 11/28/2016 10:16 AM CDT [facility] CHLORIDE S/P/B 102 98 - 107 MMOL/L 11/28/2016 10:16 AM CDT [facility] CO2 28.0 22 - 29 MMOL/L 11/28/2016 10:16 AM CDT [facility] CALCIUM S/P/B 9.4 8.4 - 10.2 MG/DL 11/28/2016 10:16 AM T [facility] ANION GAP 10.0 0 - 24 MMOL/L 11/28/2016 10:16 AM T [facility] BUN CREATININE RATIO 20.0 6 - 26 11/28/2016 10:16 AM T [facility] OSMOLALITY (CALC) 282(H) 261 - 280 MOSM/KG 11/28/2016 10:16 AM T [facility] EGFR NON-AFR. AMER. >60 >60 ML/MIN/1.7 3 M2 11/28/2016 10:16 AM [facility] EGFR AFR. AMER. >60 >60 ML/MIN/1.7 3 M2 11/28/2016 10:16 AM [facility] 11/28/2016 7:29 AM CDT 11/28/2016 7:31 AM CDT us Generic Conversion Md [facility] Final R esult [facility] [address] [place] [address], [place] [phone] documented in this encounter Visit Diagnoses Diagnosis Encounter for screening for diabetes mellitus Screening for diabetes mellitus documented in this encounter
--- OUTSIDE RECORDS SUMMARY | 2024-05-20 12:13 | XMS_ITS | Encounter Summary ---
Author Organization [facility] Address [address] [facility] [place], [place] [address] [place] [address] Care Team Providers Care Director Of Strategy & Mobile Name Role Phone Unavailable Primary Care Provider Unavailabl e Encounter Details Date Type Department Care Team (Late st Contact Info) Description 03/03/2013 Abstract [facility] [address] [place] [address] Agusto Martínez MD [address] [address] Social History Tobacco Use Types Packs/Day Years Used Date Smoking Tobacco: Never Assessed Sex and Gender Information Value Date Recorded Sex Assigned at Not on file Legal Sex Male 8:30 PM CDT Gender Identity Not on file Sexual Orientation Not on file documented as of this encounter Plan of Treatment Not on file documented as of this encounter Visit Diagnoses Diagnosis Sprain of wrist Sprain of wrist, unspecified site documented in this encounter
--- OUTSIDE RECORDS SUMMARY | 2024-05-20 12:13 | XMS_ITS | Encounter Summary ---
Author Organization [facility] Address [facility]6 [facility]. [place], [place] [address] [place] [address] Care Team Providers Care Customer Service Consultant Name Role Phone Unavailable Primary Care Provider Unavailabl e Encounter Details Date Type Department Care Team (Late st Contact Info) Description 06/25/[address] [facility] [facility] [address] [place] [address] , Lali Frank MD Social History Tobacco Use Types Packs/Day Years [...]
--- OUTSIDE RECORDS SUMMARY | 2024-05-20 12:13 | XMS_ITS | Encounter Summary ---
Author Organization [facility] Address [facility]6 [facility]. [place], [place] [address] [place] [address] Care Team Providers Care Clinical Documentation Manager Name Role Phone Unavailable Primary Care Provider Unavailabl e Encounter Details Date Type Department Care Team (Late st Contact Info) Description 04/01/2008 Abstract [facility] [address] [place] [address] , Lali Frank MD Social History Tobacco [...]
--- OUTSIDE RECORDS SUMMARY | 2024-05-20 12:13 | XMS_ITS | Encounter Summary ---
Author Organization [facility] Address [facility]6 [facility]. [place], [place] [address] [place] [address] Care Team Providers Care Structural Worker Name Role Phone Unavailable Primary Care Provider Unavailabl e Encounter Details Date Type Department Care Team (Late st Contact Info) Description 11/06/2007 Abstract [facility] [address] [place] [address] Tre Cancino MD [facility] [address] [place] [address] Social History Tobacco Use Types Packs/Day Years [...]
--- OUTSIDE RECORDS SUMMARY | 2024-05-20 12:13 | XMS_ITS | Encounter Summary ---
Author Organization [facility] Address [facility]6 [facility]. [place], [place] [address] [place] [address] Care Team Providers Care Lang Interpreter Name Role Phone Unavailable Primary Care Provider Unavailabl e Encounter Details Date Type Department Care Team (Late st Contact Info) Description 1998 [place] [address] , Generic Conversion, Social History Tobacco Use [...]
--- OUTSIDE RECORDS SUMMARY | 2024-05-20 12:13 | XMS_ITS | Encounter Summary ---
Author Organization [facility] Address [facility]6 [facility]. [place], [place] [address] [place] [address] Care Team Providers Care Iron Worker Name Role Phone Unavailable Primary Care Provider Unavailabl e Encounter Details Date Type Department Care Team (Late st Contact Info) Description 03/31/2007 Abstract [facility] [address] [place] [address] Social History Tobacco Use Types Packs/Day Years [...]
--- OUTSIDE RECORDS SUMMARY | 2024-05-20 12:13 | XMS_ITS | Encounter Summary ---
Author Organization [facility] Address [address] [facility] [place], [place] [address] [place] [address] Care Team Providers Care Service Learning Coordinator Name Role Phone Unavailable Primary Care Provider Unavailabl e Encounter Details Date Type Department Care Team (Late st Contact Info) Description 08/22/2004 Abstract [facility] [address] [place] [address] Rebecca Winters MD [address] [place] [address] Social History Tobacco Use Types Packs/Day Years [...]
--- OUTSIDE RECORDS SUMMARY | 2024-05-20 12:13 | XMS_ITS | Encounter Summary ---
Author Organization [facility] Address [facility]6 [facility]. [place], [place] [address] [place] [address] Care Team Providers Care Enterprise Project Manager Name Role Phone Unavailable Primary Care Provider Unavailabl e Encounter Details Date Type Department Care Team (Late st Contact Info) Description 04/15/2009 Abstract [facility] [address] [place] [address] Sotero Gaitan MD Social History Tobacco Use Types Packs/Day [...]
--- OUTSIDE RECORDS SUMMARY | 2024-05-20 12:23 | XMS_ITS | Continuity of Care Document ---
Author Organization [facility] Address [address] [place] [address] Phone Care Team Providers Care Refrigerator Assembler Name Role Phone Alejandro Herman MD Unavailable Unavailable Procedures Procedure Date Work/medical disability examination I M E X-ray exam of shoulder, complete 2006 I M E No Show Appointment Advance Directives Directive Yes / No Effective Date File Name No Information Encounters Encounter Description Practice Location Reason(s) For Visit Diagnoses Date Provider Providers Copied on Encounter Work/medical disability examination I M E [facility], [address], [id number], [phone] [facility] No Information 0 7 Virgil Allen. 1050 [facility], [place] [address], [place], [place], [id number] , [place]. tel: [phone] [facility], [address] [place] [address], [id number], [phone] [facility] No Information 200 7 Virgil Alejandro. 1050 [facility], [facility] [address], [place], [id number] , [place]. tel: [phone] Family History Family Member Type Diagnosis Age At Onset No Information Payers Payer name Insurance type Covered alliance party ID Authorricha fletcher(s) [place] Demetrio HAWTHORNE [id number] Social History Type Description Quantity Date Captured Comments Sex Male Smoking Status No Information Chief Complaint And Reason For Visit No Information Reason For Referral Reason For Referral No Information History Of Present Illness Encounter Date Complaint History Of Prese nt Illness No Information Functional Status Date Functional Assessmen t No Information Instructions Date Instruction Additional Infor mation No Information Assessments Type Assessment Date No Information Patient Care Teams Name Effective Dates (start - stop) Status Members No Information
== END 2024-05-13 08:08 | disposition home or self-care (01) ==
LOC: ANHGOSHLAB 08:09
PROVIDERS: PCP Internal Medicine; Visit Provider Internal Medicine
DX: R74.8 Abnormal levels of other serum enzymes (principal); E29.1 Testicular hypofunction; Z79.890 Hormone replacement therapy
CPT/HCPCS: 36415; 82248; 82728; 82977; 85610; 86038; 86039; 86803; 87340

== ENCOUNTER 2024-06-25 09:11 | Emergency (ER) | payer BC, SELFPAY ==
--- NOTE | ~2024-06-25 | XR_ITS ---
EXAMINATION: XR hand RT min 3V DATE: 06/25/2024 10:11 INDICATION: Right hand pain. TECHNIQUE: 3 views of the right hand were obtained. COMPARISON: None. FINDINGS: Alignment is normal. No fracture. There is mild osteoarthritis of distal radioulnar joint a nd most of the metacarpophalangeal joints and interphalangeal joints. IMPRESSION: 1. Mild polyarticular osteoarthritis. Reviewed, dictated and finalized at location A. NGUAL MIDDLE SCHOOL TEACHER
--- NOTE | ~2024-06-25 | XR_ITS ---
EXAMINATION: XR hand LT min 3V DATE: 06/25/2024 10:11 INDICATION: Left hand pain. TECHNIQUE: 3 views of left hand were obtained. COMPARISON: None. FINDINGS: Bone alignment is normal. No fracture. There is mild osteoarthritis of distal radioulnar danyelle int, second and third metacarpophalangeal joints, and most of the interphalangeal joints. IMPRESSION: 1. Mild polyarticular osteoarthritis. Reviewed, dictated and finalized at location A. TH AND SAFETY INSTRUCTOR
[2024-06-25 09:20] VITALS: BP 122/77; PULSE 63; RESP 18; TEMP 36.2; O2SAT 99
--- NOTE | 2024-06-25 09:29 | ED_ITS ---
HPI - URI/Sore Throat General Chief Complaint: Extremity Injury, Upper Stated Complaint: Bilateral Hand Pain Time Seen by Provider: 06/25/24 09:29 Source: patient, RN notes reviewed and old records reviewed Mode of arrival: ambulatory Limitations: no limitations History of Present Illness HPI Narrative: patient presents with complaints of bilateral hand pain that has been present for. He reports that pain is worse when he is at the gym or lifting anything heavy. He has not been taking anything for his symptoms. He retains full range of motion of both hands. States pain is worse in the right hand, is right-hand dominant. There is no obvious deformity of either hand. He has no other concerns or complaints today. Related Data Home Medications ?Medication ?Instructions ?Recorded ?Confirmed ?Last Taken ?Type testosterone cypionate 200 mg/mL 100 mg IM WEEKLY 05/20/24 Unknown History intramuscular oil Allergies Allergy/AdvReac Type Severity Reaction Status Date / Time No Known Allergies Allergy Verified 06/25/24 09:39 Review of Systems Review of Systems: All systems reviewed & are unremarkable except as noted in HPI and below Constitutional: Constitutional: Reports no additional constitutional complaints ENT: Reports system reviewed and no additional complaints, except as documented Cardiovascular: Cardiovascular: Reports no additional cardiovascular complaints Respiratory: Respiratory: Reports no additional respiratory complaints Gastrointestinal: Gastrointestinal: Reports no additional gastrointestinal complaints Musculoskeletal: Musculoskeletal: Reports no additional musculoskeletal complaints and Reports as per HPI [facility] Past Medical History Medical History History of hyperlipidemia Elevated liver enzymes Long-term current use of testosterone cypionate Hyperglycemia Asthma Hypertension Family History Family History Mother Cancer Social History Social History Social History: Caffeine- Tea Smoking status: Never smoker Alcohol intake: current Alcohol use details: weekends Substance use: never Substance use type: does not use Do You Feel Safe in your Home?: Yes Lack of Transportation: No Lack of Food: Never True Current Housing: I Have Housing Concerned About Future Housing: No Difficulty Paying Gas/Electric Bills: No Difficulty Paying for Meds: No Currently Unemployed: No Education: Trade/Vocational Certificate Difficulty w/ Childcare or Family Care: No Living arrangements: with family Occupation/Education: occupation 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 There is no relevant family history pertinent to the patient complaint. Exam Const: General: cooperative, no acute distress, alert and awake Orientation/consciousness: oriented to person, oriented to place and oriented to time HENMT: Head: normal to inspection Resp: Effort & Inspection: normal respiratory effort and able to speak in complete sentences Auscultation: clear to auscultation bilaterally, no crackles, no rales, no rhonchi and no wheezes Cardio: Palpation: normal PMI Rate: regular rate Rhythm: regular rhythm Heart sounds: S1 normal heart sound present and S2 normal heart sound present Neuro: General: oriented to person, oriented to place and oriented to time Cranial nerves: Yes CN's II-XII intact bilaterally Extrem: Right upper extremity: normal to inspection, full ROM, normal capillary refill and no joint enlargement Left upper extremity: normal to inspection, full ROM, normal capillary refill and no joint enlargement Psych: Appearance: grossly normal Thought process: Normal thought process present Insight: Good insight present (Psych) Judgement: Good judgement present (Psych) Course Course Level of Care: Express Care Visit Vital Signs Vital signs: Vital Signs Temperature 97.1 F L 06/25/24 09:20 Pulse Rate 63 06/25/24 09:20 Respiratory Rate 18 06/25/24 09:20 Blood Pressure 122/77 06/25/24 09:20 Pulse Oximetry 99 06/25/24 09:20 Oxygen Delivery Room Air 06/25/24 09:20 Temperature 97.1 F L 06/25/24 09:20 Pulse Rate 63 06/25/24 09:20 Respiratory Rate 18 06/25/24 09:20 Blood Pressure 122/77 06/25/24 09:20 Pulse Oximetry 99 06/25/24 09:20 Oxygen Delivery Room Air 06/25/24 09:20 Reviewed MDM - URI/Sore Throat MDM Narrative Medical decision making narrative: Reassuring physical exam. Patient requested the x-rays be done for peace of mind . No acute findings noted, mild osteoarthritis bilaterally. Supportive care measures recommended. Next para Discharge instructions reviewed with patient, as well as provided in writing per nursing staff. The instructions also include specific and strict return/GO TO THE ER as well as f/u information. All questions have been answered, and the patient deny any further questions with discharge and discharge plan. Some parts of this dictation were generated by voice recognition software and may contain typographical and/or grammatical inaccuracies. Differential Diagnosis Differential diagnosis: Likely other (Hand pain, overuse injury, arthritis) Medical Records Attestation: I reviewed the patient's medical records. Imaging Data Attestation: I personally reviewed and interpreted this imaging study as follows: My impression: No acute findings Radiologist's impression: [address] [address] XRay Report Signed Patient: Guzman Villagran : 1975 MR#: [id number] Age: 48 Acct:[id number] Loc: [facility] ADM Date: 06/25/24Attending Dr: Ordering Physician: Jojo Arriola FNP Date of Service: 06/25/24 Procedure(s): XR hand LT min 3V Accession Number(s): [id number] cc: Jojo Arriola FNP; Guzman Singh DO~ EXAMINATION: XR hand LT min 3V DATE: 06/25/2024 10:11 INDICATION: Left hand pain. TECHNIQUE: 3 views of left hand were obtained. COMPARISON: None. FINDINGS: Bone alignment is normal. No fracture. There is mild osteoarthritis of distal radioulnar joint, second and third metacarpophalangeal joints, and most of the interphalangeal joints. IMPRESSION: 1. Mild polyarticular osteoarthritis. Reviewed, dictated and finalized at location A. LING ENGINEER Please be advised this is a medical document. It is intended for vqqf-ib-filb communication. It is written in medical language and may contain unfamiliar abbreviations or verbiage. Medical documents are intended to carry relevant information, facts as evident, and the clinical opinion of the practitioner at the time of the encounter. This report may have been done utilizing a voice recognition system. Attempts have been made to correct errors. However, there may be uncorrected grammatical, spelling, and recognition errors present. The file time of this note does not necessarily represent the time of service. Dictated By: Matt Guallpa MD 06/25/24 1020 Signed By: <Electronically signed by Matt Guallpa MD in OV> [address] [address] XRay Report Signed Patient: Guzman Villagran : 1975 MR#: [id number] Age: 48 Acct:[id number] Loc: [facility] ADM Date: 06/25/24Attending Dr: Ordering Physician: Jojo Arriola FNP Date of Service: 06/25/24 Procedure(s): XR hand RT min 3V Accession Number(s): [id number] cc: Jojo Arriola FNP; Guzman Singh DO~ EXAMINATION: XR hand RT min 3V DATE: 06/25/2024 10:11 INDICATION: Right hand pain. TECHNIQUE: 3 views of the right hand were obtained. COMPARISON: None. FINDINGS: Alignment is normal. No fracture. There is mild osteoarthritis of distal radioulnar joint and most of the metacarpophalangeal joints and interphalangeal joints. IMPRESSION: 1. Mild polyarticular osteoarthritis. Reviewed, dictated and finalized at location A. LING ENGINEER Please be advised this is a medical document. It is intended for qwsi-nr-qkzi communication. It is written in medical language and may contain unfamiliar abbreviations or verbiage. Medical documents are intended to carry relevant information, facts as evident, and the clinical opinion of the practitioner at the time of the encounter. This report may have been done utilizing a voice recognition system. Attempts have been made to correct errors. However, there may be uncorrected grammatical, spelling, and recognition errors present. The file time of this note does not necessarily represent the time of service. Dictated By: Matt Guallpa MD 06/25/24 1021 Signed By: <Electronically signed by Matt Guallpa MD in OV> 06/25/24 1023 Discharge Plan Discharge Clinical Impression: Osteoarthritis Qualifiers: Osteoarthritis location: hand Osteoarthritis type: unspecified Laterality: bilateral Qualified Code(s): M19.041 - Primary osteoarthritis, right hand; M19.042 - Primary osteoarthritis, left hand Patient Disposition: Home, Self-Care Condition: Stable Instructions: Antibiotic Form, Osteoarthritis (ED) Additional Instructions: use cvri-amz-[id number] medications per package instructions to manage her symptoms. Follow-up with your primary care provider. Emergency department for new or worse symptoms Patient Language: Bulgarian Prescriptions: No Action (DME) safety needles 25 gauge x 1 needle See Rx Instructions .Route Qty: 100 0RF Rx Instructions: As directed (DME) Carepoint Luer Lock Syr-needle 3 mL 21 gauge x 1 syringe See Rx Instructions .Route Qty: 100 0RF Rx Instructions: use to inject 0.7ml of testosterone weekly, do not use more than once weekly (DME) BD Eclipse Luer-Rico 3 mL 23 x 1 syringe See Rx Instructions .Route Qty: 50 0RF Rx Instructions: Use to draw up and inject testosterone lisinopril 20 mg tablet 20 mg PO DAILY Qty: 90 1RF testosterone cypionate 200 mg/mL oil 100 mg IM WEEKLY Rx Instructions: as a single dose Follow-up/Referrals: Guzman Singh DO [Primary Care Provider] - 2 Weeks Time of Disposition: 10:34
--- OUTSIDE RECORDS SUMMARY | 2024-06-25 09:48 | XMS_ITS | Encounter Summary ---
Author Organization [facility] Address [facility]6 [facility]. [place], [place] [address] [place] [address] Care Team Providers Care Revenue Collector Name Role Phone Joel Tanner MD Primary Care Provider + Senthil Fisher MD Unavailable [phone] Encounter Details Date Type Department Care Team (Latest Contact Info) Description 02/16/20[address] Entourage [address] [facility] [address] [place] [address] Joel Tanner MD [address] [place] [address] Question regarding COMPREHENSIVE METABOLIC PANEL [...] Total Score: 0 06/28/19 22 3:59 PM ELECTROTYPER documented as of this encounter Care Teams Revenue Collector Relationship Specialty Start Date End Date Joel Tanner MD 9401 [facility] 112 [place] [address] PCP - General FAMILY PRACTICE 05/24/19 02/27/24 Senthil Fisher MD [facility]. [facility] 1800 [place] [address] Deanne Erecting Crane Operator CARDIOVASCULAR DISEASE 05/29/19 documented as of this encounter
--- OUTSIDE RECORDS SUMMARY | 2024-06-25 09:48 | XMS_ITS | Encounter Summary ---
Author Organization [facility] Address [facility]6 [facility]. [place], [place] [address] [place] [address] Care Team Providers Care Meter Record Clerk Name Role Phone Joel Tanner MD Primary Care Provider + Senthil Fisher MD Unavailable [phone] Encounter Details Date Type Department Care Team (Late st Contact Info) Description 08/04/2022 [email or web address] Message [address] [address] Aniceto [facility] Provider Overdue for High Blood Pressure follow [...] Score: 0 06/28/19 22 3:59 PM INDUSTRIAL WASTE TREATMENT TECHNICIAN documented as of this encounter Care Teams Meter Record Clerk Relationship Specialty Start Date End Date Joel Tanner MD 9401 [facility] 112 [place] [address] PCP - General FAMILY PRACTICE 05/24/19 02/27/24 Senthil Fisher MD Three [facility]. [facility] [address] [place] [address] Deanne Medicine Worker CARDIOVASCULAR DISEASE 05/29/19 documented as of this encounter
--- OUTSIDE RECORDS SUMMARY | 2024-06-25 09:48 | XMS_ITS | Continuity of Care Document ---
Author Organization [facility] Address [address] [place] [address] Phone Care Team Providers Care Concaving Machine Operator Name Role Phone Alejandro Herman MD Unavailable [...] disability examination I M E [facility], [address], [id number], [phone] [facility] No Information 0 7 Virgil Allen. 1050 [facility], [place] [address], [place], [place], [id number] , [place]. tel: [phone] [facility], [address] [place] [address], [id number], [phone] [facility] No Information 200 7 Virgil Alejandro. 1050 [facility], [facility] [address], [place], [id number] , [place]. tel: [phone] Family History Family Member Type Diagnosis Age At Onset No Information Payers Payer name Insurance type Covered alliance party ID Authorricha fletcher(s) [place] Demetrio HAWTHORNE [id number] Social History Type Description Quantity Date Captured [...]
--- OUTSIDE RECORDS SUMMARY | 2024-06-25 09:48 | XMS_ITS | Encounter Summary ---
Author Organization [facility] Address [facility]6 [facility]. [place], [place] [address] [place] [address] Care Team Providers Care Elevator Repairer Name Role Phone Joel Tanner MD Primary Care Provider + Senthil Fisher MD Unavailable [phone] Encounter Details Date Type Department Care Team (Late st Contact Info) Description 02/16/2022 [employer] Message [facility] [address] [place] [address] Joel Tanner MD [address] [place] [address] Question regarding LIPID PANEL Social [...] Total Score: 0 06/28/19 22 3:59 PM CRIB PAD MAKER documented as of this encounter Care Teams Elevator Repairer Relationship Specialty Start Date End Date Joel Tanner MD 9401 [facility] 112 [place] [address] PCP - General FAMILY PRACTICE 05/24/19 02/27/24 Senthil Fisher MD [facility]. [facility] 1800 [place] [address] Deanne Division Supervisor CARDIOVASCULAR DISEASE 05/29/19 documented as of this encounter
--- OUTSIDE RECORDS SUMMARY | 2024-06-25 09:48 | XMS_ITS | Encounter Summary ---
Author Organization [facility] Address [facility]6 [facility]. [place], [place] [address] [place] [address] Care Team Providers Care Therapeutic Strategy Lead Name Role Phone Joel Tanner MD Primary Care Provider + Senthil Fisher MD Unavailable [phone] Encounter Details Date Type Department Care Team (Late st Contact Info) Description 03/19/2021 [employer] Message [address] [address] [facility] Provider results Social History Tobacco Use [...] documented as of this encounter Care Teams Therapeutic Strategy Lead Relationship Specialty Start Date End Date Joel Tanner MD 9401 [facility] 112 [place] [address] PCP - General FAMILY PRACTICE 05/24/19 02/27/24 Senthil Fisher MD [facility]. [address] [place] [address] Deanne Past Due Accounts Clerk CARDIOVASCULAR DISEASE 05/29/19 documented as of this encounter
--- OUTSIDE RECORDS SUMMARY | 2024-06-25 09:48 | XMS_ITS | Clinical Summary ---
Author Organization [facility] Address [facility]6 [facility]. [place], [place] [address] [place] [address] Care Team Providers Care Fermenting Cellars Supervisor Name Role Phone Senthil Fisher MD Unavailable [phone] Allergies No known active allergies Medications [...] (09/26/2022): Added automatically from request for surgery [id number] Hypertension, essential, benign Chest pain Resolved Problems [...] of 3 - 19+ 3-dose series) 09/08/1995 PHQ-2 (Physician [place]) 08/06/2023 08/05/2022 COVID-19 Vaccine (3 - 2023-2 5 season) 2024 02/10/2021, 01/20/2021 Influenza Adult (#1) 2024 PHQ-2 (Physician [place]) 05/22/2024 08/05/2022 Colorectal Cancer Screening Colonoscopy (10 Years) 12/02/2032 12/02/2022, 12/02/2022 Hepatitis C Completed 06/03/2021, 03/29/2021 Meningococcal B Vaccine Aged Out No l onger eligible based on patient's age to complete this topic Meningococcal Vaccine Aged Out No mary douglas [...] CDT HEPATITIS PANEL,ACUTE Routine 06/03/2021 7:42 AM METALWORKING INSTRUCTOR LFT elevation from Last 3 Months or Most Recently Relevant to Health Maintenance Results * HEPATITIS PANEL,ACUTE (06/03/2021 7:42 AM METALWORKING INSTRUCTOR) HEPATITIS B SURFACE AG NON-REACTI VE NON-REACTI VE 06/03/2021 3:42 PM METALWORKING INSTRUCTOR [facility] HEP B CORE IGM NON-REACTI VE NON-REACTI VE 06/03/2021 4:08 PM METALWORKING INSTRUCTOR [facility] HAV IGM NON-REACTI VE NON-REACTI VE 06/03/2021 4:07 PM METALWORKING INSTRUCTOR [facility] HEPATITIS C AB NON-REACTI VE NON-REACTI VE 06/03/2021 4:07 PM METALWORKING INSTRUCTOR [facility] 06/03/2021 7:42 AM METALWORKING INSTRUCTOR us Joel Tanner MD LABORATORY Final Re sult [facility] [address] [place] [address], from Last 3 Months or Most Recently Relevant to Health Maintenance Insurance [facility] Care Teams Fermenting Cellars Supervisor Relationship Specialty Start Date End Date Senthil Fisher MD Three [facility]. [address] [place] [address] Deanne Farm Contractor Buyer CARDIOVASCULAR DISEASE 05/29/19
--- OUTSIDE RECORDS SUMMARY | 2024-06-25 09:49 | XMS_ITS | Continuity of Care Document ---
Author Organization [facility] Address [address] [place] [address] Phone Care Team Providers Care Forestry Farm Laborer Name Role Phone Alejandro Herman MD Unavailable [...] disability examination I M E [facility], [address], [id number], [phone] [facility] No Information 0 7 Virgil Allen. 1050 [facility], [place] [address], [place], [place], [id number] , [place]. tel: [phone] [facility], [address] [place] [address], [id number], [phone] [facility] L'Idealist No Information 200 7 Virgil Alejandro. 1050 [facility], [facility] [address], [place], [id number] , [place]. tel: [phone] Family History Family Member Type Diagnosis Age At Onset No Information Payers Payer name Insurance type Covered green party ID Authorricha fletcher(s) [place] Demetrio HAWTHORNE [id number] Social History Type Description Quantity Date Captured [...]
== END 2024-06-25 10:39 | disposition home or self-care (01) ==
PROVIDERS: Emergency Provider Nurse Practitioner Family; PCP Internal Medicine
DX: M19.041 Primary osteoarthritis, right hand (principal); M19.042 Primary osteoarthritis, left hand; E78.5 Hyperlipidemia, unspecified; I10 Essential (primary) hypertension; J45.909 Unspecified asthma, uncomplicated
CPT/HCPCS: 73130; 99214; G0463

== ENCOUNTER 2024-11-27 08:05 | Outpatient (CLI) | payer BC, SELFPAY ==
--- OUTSIDE RECORDS SUMMARY | 2024-11-27 08:09 | XMS_ITS | Encounter Summary ---
Author Organization [facility] Address [facility]6 [place] [address] Care Team Providers Care Public Housing Manager Name Role Phone Joel Tanner MD Primary Care Provider + Senthil iFsher MD Unavailable Encounter Details Date Type Department Care Team (Late st Contact Info) Description 08/04/2022 [employer] Message [address] [address] [facility] Provider Overdue for High Blood Pressure follow [...] AM CDT documented as of this encounter Functional Status * Over the past 2 weeks, how often have you been bothered by any of the following problems? Question Answer Date of Assessment Author Status Little interest or pleasure in doing things Not at all 08/05/2022 9:39 AM CDT Qing Cohn CMA Acti ve Feeling down, depressed, or hopeless Not at all 08/05/2022 9:39 AM CDT Qing Cohn C MA Active Patient Health Questionnaire-2 Score 0 08/05/2022 9:39 AM CDT Qing Cohn CM A Active documented as of this encounter Plan of Treatment Not on file documented as of this encounter Visit Diagnoses Not on filedocumented in this encounter Additional Health Concerns Assessment Noted Time PHQ-9 Depression Total Score: 0 06/28/19 22 3:59 PM INTEGRITY MANAGER documented as of this encounter Care Teams Public Housing Manager Relationship Specialty Start Date End Date Joel Tanner MD 9401 [facility] 112 [place] [address] PCP - General FAMILY PRACTICE 05/24/19 02/27/24 Senthil Fisher MD Three [facility]. [address] [place] [address] Deanne High School Professional CARDIOVASCULAR DISEASE 05/29/19 documented as of this encounter
--- OUTSIDE RECORDS SUMMARY | 2024-11-27 08:09 | XMS_ITS | Encounter Summary ---
Author Organization [facility] Address [facility] [place] [address] Care Team Providers Care Nutrition Assistant Name Role Phone Joel Tanner MD Primary Care Provider + Senthil Fisher MD Unavailable [phone] Encounter Details Date Type Department Care Team (Late st Contact Info) Description 03/19/2021 [employer] Message [address] [address] [facility] Provider results Social History Tobacco Use Types [...] documented as of this encounter Care Teams Nutrition Assistant Relationship Specialty Start Date End Date Joel Tanner MD [address] [facility] [address] [place] [address] PCP - General FAMILY PRACTICE 05/24/19 02/27/24 Senthil Fisher MD [facility]. [facility] [address] [place] [address] Deanne Broker CARDIOVASCULAR DISEASE 05/29/19 documented as of this encounter
--- OUTSIDE RECORDS SUMMARY | 2024-11-27 08:09 | XMS_ITS | Clinical Summary ---
Author Organization [facility] Address [address] [place] [address] Care Team Providers Care Help Desk Associate Name Role Phone Senthil Fisher MD Unavailable [phone] Allergies No known active allergies Medications [...] (09/26/2022): Added automatically from request for surgery [id number] Hypertension, essential, benign Chest pain Resolved Problems Problem Noted Date Diagnosed Date Resolved Date Encounter for screening for malignant neoplasm of colon 09/14/2022 09/19/2022 Immunizations Immunization Administration Dates Next Due Dtp 03/18/1983 Opv [...] 77 12/02/2022 8:31 AM CDT Temperature 37.1 C (98.8 F) 12/02/2022 8:31 AM CDT Respiratory Rate 18 12/02/2022 8:31 AM CDT Oxygen Saturation 99% 12/02/2022 10:45 AM CDT Inhaled Oxygen Concentration - - Weight 95.3 kg (210 lb) 11/23/2022 11:39 AM CDT Height 180.3 cm (5' 11) 11/23/2022 11:39 AM CDT Body Mass Index 29.29 11/23/2022 11:39 AM CDT Plan of Treatment Health Maintenance Due Date Last Done Comments Annual Physical 09/08/1979 DTaP, Tdap and Td Vaccines ( 1 - Tdap) 09/08/1995 03/18/1983 Hepatitis B Vaccines (1 of 3 - 19+ 3-dose series) 09/08/1995 COVID-19 Vaccine (2023-2 5 season) 2024 02/10/2021, 01/20/2021 PHQ-2 (Physician [place]) 05/22/2024 Colorectal Cancer Screening Colonoscopy (10 Years) 12/02/2032 12/02/2022, 12/02/2022 Hepatitis C Completed 06/03/2021, 03/29/2021 Meningococcal B Vaccine Aged Out No l onger eligible based on patient's age to complete this topic Meningococcal Vaccine Aged Out No mary douglas eligible based on patient's age to complete this topic Pneumococcal Vaccine: Pediatrics (0 to 5 Years) and At-Risk Patients (6 to 49 Years) Aged Out No longer eligible b ased on patient's age to complete this topic RSV Immunizations Under 20 Months Aged Out No longer eligible b ased on patient's age to complete this topic Procedures Procedure Name Priority Date/Time Associated Diagnosis Comments COLONOSCOPY Routine 12/02/2022 8:21 AM CDT HEPATITIS PANEL,ACUTE Routine 06/03/2021 7:42 AM COCOA POWDER MIXER OPERATOR LFT elevation from Last 3 Months or Most Recently Relevant to Health Maintenance Results * HEPATITIS PANEL,ACUTE (06/03/2021 7:42 AM COCOA POWDER MIXER OPERATOR) HEPATITIS B SURFACE AG NON-REACTI VE NON-REACTI VE 06/03/2021 3:42 PM COCOA POWDER MIXER OPERATOR [facility] HEP B CORE IGM NON-REACTI VE NON-REACTI VE 06/03/2021 4:08 PM COCOA POWDER MIXER OPERATOR [facility] HAV IGM NON-REACTI VE NON-REACTI VE 06/03/2021 4:07 PM COCOA POWDER MIXER OPERATOR [facility] HEPATITIS C AB NON-REACTI VE NON-REACTI VE 06/03/2021 4:07 PM COCOA POWDER MIXER OPERATOR [facility] 06/03/2021 7:42 AM COCOA POWDER MIXER OPERATOR us Joel Tanner MD LABORATORY Final Re sult [facility] [address] [place] [address], [place] [phone] from Last 3 Months or Most Recently Relevant to Health Maintenance Insurance [facility] Care Teams Help Desk Associate Relationship Specialty Start Date End Date Senthil Fisher MD [address] [facility] [address] [place] [address] Deanne Cnc Manager CARDIOVASCULAR DISEASE 05/29/19
--- OUTSIDE RECORDS SUMMARY | 2024-11-27 08:09 | XMS_ITS | Continuity of Care Document ---
Author Organization [facility] Address [address] [place] [address] Phone Care Team Providers Care Molder Inflated Ball Name Role Phone Alejandro Herman MD Unavailable [...] disability examination I M [facility], [address], [id number], [phone] [facility] No Information [address] [facility], [place] [address], [place], [place], [id number] , [place]. tel: [phone] [facility], [address] [place] [address], [id number], [phone] [facility] No Information [address]. [address] [facility], [facility] [address], [place], [id number] , [place]. tel: [phone] Family History Family Member Type Diagnosis Age At Onset No Information Payers Payer name Insurance type Covered alliance party ID Authorricha fletcher(s) Clarion Demetrio HAWTHORNE [id number] Social History Type Description Quantity Date Captured [...]
--- OUTSIDE RECORDS SUMMARY | 2024-11-27 08:10 | XMS_ITS | Encounter Summary ---
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 [address] [place] [address] Deanne Corporate Tutor CARDIOVASCULAR DISEASE 05/29/19 documented as of this encounter
--- OUTSIDE RECORDS SUMMARY | 2024-11-27 08:10 | XMS_ITS | Encounter Summary ---
Author Organization [facility] Address [facility] [place] [address] Care Team Providers Care Electric Locomotive Firer/Fireman Name Role Phone Joel Tanner MD Primary Care Provider + Senthil Fisher MD Unavailable [phone] Encounter Details Date Type Department Care Team (Latest Contact Info) Description 02/16/2022 [employer] Message [facility] [address] [place] [address] Joel Tanner MD [address] [place] [address] Question regarding COMPREHENSIVE METABOLIC PANEL [...] Total Score: 0 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. [address] [place] [address] Deanne Head Lineman CARDIOVASCULAR DISEASE 05/29/19 documented as of this encounter
[2024-11-27 19:32] LABS: Hematocrit 48.1 % (42.0-52.0); Hemoglobin 15.5 g/dL (14.0-18.0); Immature Granulocyte Percent A 0.5 % (0-0.5); Lymphocytes Absolute Auto 1.90 K/mm3 (0.9-3.2); Mean Corpuscular HGB Conc 32.2 g/dl (32-36); Mean Corpuscular Hemoglobin 29.0 pg (26-34); Mean Corpuscular Volume 90.1 fl (80-100); Nucleated Red Blood Cells Absolute Auto 0.000 K/mm3 (0.0-0.012); Nucleated Red Blood Cells Perc 0.0 % (0.0-0.2); Platelet Count Result 190 k/mm3 (150-375); Red Blood Count 5.34 M/mm3 (4.6-6.20); White Blood Count 5.9 K/mm3 (4.5-10.0)
[2024-11-27 21:06] LABS: Alanine Aminotransferase 87 U/L (6-50); Albumin Level 4.3 g/dL (3.5-5.1); Alkaline Phosphatase 64 U/L (38-126); Anion Gap 7 mmol/L (4-12); Aspartate Amino Transferase 103 U/L (17-59); Bilirubin,Total 0.9 mg/dL (0.2-1.3); Blood Urea Nitrogen 21 mg/dL (9-20); Calcium 8.8 mg/dL (8.4-10.2); Carbon Dioxide 28 mmol/L (22-30); Chloride 102 mmol/L (98-107); Estimated Glomerular Filt Rate > 60; Glucose 111 mg/dL (65-110); Potassium 4.1 mmol/L (3.4-5.0); Sodium 137 mmol/L (137-145); Total Protein 7.3 g/dL (6.3-8.2)
[2024-11-27 21:38] LABS: Prostate Specific Antigen 0.7 ng/mL (< OR = 4.0)
== END 2024-11-27 08:06 | disposition home or self-care (01) ==
LOC: ANHGOSHLAB 08:07
PROVIDERS: PCP Internal Medicine; Visit Provider Internal Medicine
DX: E29.1 Testicular hypofunction (principal); I10 Essential (primary) hypertension; Z79.890 Hormone replacement therapy; R74.8 Abnormal levels of other serum enzymes
CPT/HCPCS: 36415; 80053; 82248; 84153; 85025; G0103